=== PATIENT | male | born 1955 | race Caucasian/White ===

== ENCOUNTER 2019-09-22 09:17 | Inpatient (IN) | payer BC ==
[2019-09-22] MEDS ORDERED: SODIUM CHLORIDE 2,313 ML IV ONE (09:37)
[2019-09-22 10:12] LABS: CALCIUM OXALATE CRYSTALS FEW /hpf (NONE SEEN); EPITHELIAL CELLS RARE /hpf
[2019-09-22] MEDS ORDERED: ACETAMINOPHEN 1000 MG/100 ML VIAL (NON FORMULARY) IVPB ONE (10:13)
[2019-09-22] MEDS ORDERED: PIPERACILLIN/TAZOB 3.375 GM 3.375 GM in DEXTROSE 5%-WATER - 50 ML IVPB ONE ×2 (10:14→18:45)
[2019-09-22] MEDS ORDERED: PIPERACILLIN/TAZOBACTAM 3.375 GM VIAL IVPB ONE ×2 (10:41→17:57)
[2019-09-22] MEDS ORDERED: ACETAMINOPHEN INJECTION 100 ML IVPB ONE (10:41)
[2019-09-22 10:44] LABS: HEMATOCRIT 32.8 % (35.4-49); HEMOGLOBIN 11.2 GM/dl (11.7-16.9); MCH 30.7 pg (25.7-33.7); MCHC 34.1 g/dl (32.0-35.9); MEAN PLT VOLUME 8.9 fl (7.5-11.1); PLATELET COUNT 422 K/MM3 (134-434); RBC 3.64 M/mm3 (4.00-5.60); RDW 12.7 % (11.9-15.9); WHITE BLOOD COUNT 29.6 K/mm3 (4.0-10.8)
[2019-09-22 10:59] LABS: ACTIVATED PTT 24.6 SECONDS (25.2-36.5); ALBUMIN 2.9 g/dl (3.4-5.0); BILIRUBIN,TOTAL 0.4 mg/dl (0.2-1); CALCIUM 8.6 mg/dl (8.5-10); CREATININE 4.2 mg/dl (0.55-1.3); POTASSIUM 3.8 mmol/L (3.5-5.1); TOT PROT 6.4 g/dl (6.4-8.2)
[2019-09-22 11:04] LABS: INR 1.36 (0.82-1.09); PROTHROMBIN TIME (PATIENT) 15.1 SEC (10.2-13.0)
[2019-09-22] MEDS ORDERED: SODIUM CHLORIDE 0.9% 1000 ML INFUS.BAG IV ONE (11:10)
--- NOTE | 2019-09-22 11:14 | PDOC ---
History of Present Illness - General Chief Complaint: Diarrhea Stated Complaint: DIARRHEA Time Seen by Provider: 09/22/19 09:27 - History of Present Illness Initial Comments: 09/22/19 11:11 64 years old with past medical history significant for needed for hypertension diabetes high cholesterol presents to the emergency department with 1 week history of diarrhea 3-4 episodes a day nonbloody nonbilious and 3-day history of lower abdominal discomfort and subjective fevers. Patient feels very weak symptoms are moderate persistent constant no exacerbating or alleviating factors. Past History - Past Medical History Allergies/Adverse Reactions: Allergies Allergy/AdvReac Type Severity Reaction Status Date / Time No Known Allergies Allergy Verified 09/22/19 09:20 Home Medications: Ambulatory Orders Losartan Potassium 100 mg PO DAILY 09/23/19 COPD: No Diabetes: Yes HTN: Yes Hypercholesterolemia: Yes Kidney Stones: Yes - Immunization History Immunization Up to Date: Yes - Psycho Social/Smoking Cessation Hx Smoking History: Current every day smoker Have you smoked in the past 12 months: Yes Number of Cigarettes Smoked Daily: 10 Information on smoking cessation initiated: Yes 'Breaking Loose' booklet given: 03/29/14 Hx Alcohol Use: Yes (1-3 TIMES PER WK) Drug/Substance Use Hx: No Substance Use Type: None Review of Systems - Review of Systems Comments:: 09/22/19 11:13 ROS: A complete review of 10 out of 10 review of systems is taken and is negative apart from what is previously mentioned below and in the HPI. *Physical Exam - Vital Signs Last Vital Signs Temp Pulse Resp BP Pulse Ox 100.9 F H 122 H 16 106/70 98 09/22/19 10:10 09/22/19 09:18 09/22/19 09:18 09/22/19 09:18 09/22/19 09:18 - Physical Exam 09/22/19 11:13 Vitals: Triage Vital signs reviewed General Appearance: No acute distress, well nourished well developed, Neck: Supple; no Nucal rigidity Chest Wall: Nontender Cardiac: Regular rate and rhythym, no murmurs, no rubs, no gallops, Lungs: Clear to auscultation bilateral, good air movement bilaterally, Abdomen: Soft, non distended, normal bowel sounds, Right lower quadrant tenderness to palpation, mild rebound no guarding Extremities: Full range of motion to all extremities, no cyanosis, clubbing, or edema Skin: Warm and dry, no rashes or lesions, no rash, no petechiae Psych: Normal mood, normal affect ED Treatment Course - LABORATORY CBC & Chemistry Diagram: 09/23/19 06:40 09/23/19 06:40 - ADDITIONAL ORDERS Additional order review: Laboratory Results 09/22/19 09/22/19 09/22/19 10:15 10:15 10:15 PT with INR 15.1 H INR 1.36 H PTT (Actin FS) 24.6 L Sodium 128 L Potassium 3.8 Chloride 100 Carbon Dioxide 15 L Anion Gap 13 BUN 75.0 H Creatinine 4.2 H Est GFR (CKD-EPI)AfAm 16.42 Est GFR (CKD-EPI)NonAf 14.17 Random Glucose 136 H Calcium 8.6 Total Bilirubin 0.4 AST 14 L ALT 12 L Alkaline Phosphatase 60 Troponin I 0.03 Total Protein 6.4 Albumin 2.9 L Urine Color Urine Appearance Urine pH Urine Protein Urine Glucose (UA) Urine Ketones Urine Blood Urine Nitrite Urine Bilirubin Urine Urobilinogen Ur Leukocyte Esterase Urine RBC Urine WBC Ur Transition Epith Cell Calcium Oxalate Crystal 09/22/19 09:50 PT with INR INR PTT (Actin FS) Sodium Potassium Chloride Carbon Dioxide Anion Gap BUN Creatinine Est GFR (CKD-EPI)AfAm Est GFR (CKD-EPI)NonAf Random Glucose Calcium Total Bilirubin AST ALT Alkaline Phosphatase Troponin I Total Protein Albumin Urine Color Yellow Urine Appearance Clear Urine pH 5.0 Urine Protein 2+ H Urine Glucose (UA) Negative Urine Ketones Negative Urine Blood Trace-intact Urine Nitrite Negative Urine Bilirubin Negative Urine Urobilinogen 0.2 Ur Leukocyte Esterase Negative Urine RBC 0-2 Urine WBC Rare Ur Transition Epith Cell Rare Calcium Oxalate Crystal Few 09/22/19 10:15 RBC 3.64 L MCV 90.0 MCHC 34.1 RDW 12.7 MPV 8.9 Neutrophils % No Result Required. Lymphocytes % No Result Required. - RADIOLOGY Radiology Studies Ordered: Category Date Time Status ABDOMEN & PELVIS CT W/O CONTR [CT] Stat CT Scan 09/22/19 11:09 Ordered CHEST X-RAY PORTABLE* [RAD] Stat Radiology 09/22/19 09:37 Completed - Medications Given in the ED: ED Medications Discontinued Medications Generic Name Dose Route Start Last Admin Trade Name Freq PRN Reason Stop Dose Admin Acetaminophen 1,000 mg 09/22/19 10:13 09/22/19 10:45 Ofirmev Injection - IVPB 09/22/19 10:14 1,000 mg ONCE ONE Administration Piperacillin Sod/Tazobactam 50 mls @ 100 mls/hr 09/22/19 10:14 09/22/19 10:50 Sod 3.375 gm/ Dextrose IVPB 09/22/19 10:43 100 mls/hr ONCE ONE Administration Protocol Medical Decision Making - Critical Care Time Total Critical Care Time (minutes): 65 Critical Care Statement: The care of this patient involved high complexity decision making to prevent further life threatening deterioration of the patient 's condition and/or to evaluate & treat vital organ system(s) failure or risk of failure. - Medical Decision Making 09/22/19 11:13 64 years old hypertension diabetes high cholesterol with diarrheal illness now complicated by 3-day history of lower abdominal pain. Patient febrile tachycardic sepsis protocol initiated 30 cc/kg IV fluid bolus ordered broad-spectrum antibiotics ordered He has lactic acid returned normal patient borderline hypotensive never below 85 systolic after aggressive IV fluid resuscitation patient's blood pressure has maintained above 90 and his map has been maintained above 65 His laboratory analysis is notable for acute kidney injury his white blood cell count has returned at 29 secondary to the acute kidney injury IV contrast not used for CT abdomen pelvis Reevaluation CT abdomen pelvis demonstrates appendicitis Case discussed with surgery Dr. Foster Repeat labs demonstrate hypocalcemia hypomagnesemia and mild hypokalemia Electrolytes repleted via IV repletion Patient scheduled to be transferred to [facility] secondary to borderline hypotension electrolyte abnormalities acute kidney injury Discussion with surgeon at this time most likely diagnosis is early perforated appendicitis management per surgery Antibiotics have been ordered repeat dose ordered infectious disease has been consulted We will transfer to medicine service with close surgical consultation for further management. 09/23/19 16:26 Discharge - Discharge Information Problems reviewed: Yes Clinical Impression/Diagnosis: Appendicitis Qualifiers: Appendicitis type: unspecified Qualified Code(s): K37 - Unspecified appendicitis Condition: Good - Admission Yes - Follow up/Referral - Patient Discharge Instructions - Post Discharge Activity
[2019-09-22] MEDS ORDERED: VANCOMYCIN 1,000 MG in DEXTROSE 5%-WATER - 250 ML IVPB ONE (11:17)
[2019-09-22] MEDS ORDERED: VANCOMYCIN 1,000 MG VIAL (RESTRICTED TO ID ONLY) ONE (11:27)
[2019-09-22 11:30] LABS: PLATELET ESTIMATE ADEQUATE
[2019-09-22 11:53] LABS: VENOUS PC02 26.9 mmHg (38-52); VENOUS PH 7.37 (7.31-7.41); VENOUS PO2 52.5 mmHg (28-48)
[2019-09-22 15:20] LABS: HEMATOCRIT 26.3 % (35.4-49); MCH 31.6 pg (25.7-33.7); MCHC 34.4 g/dl (32.0-35.9); MEAN CELL VOLUME 92.1 fl (80-96); MEAN PLT VOLUME 8.4 fl (7.5-11.1); PLATELET COUNT 311 K/MM3 (134-434); RBC 2.86 M/mm3 (4.00-5.60); RDW 12.6 % (11.9-15.9); WHITE BLOOD COUNT 25.5 K/mm3 (4.0-10.8)
[2019-09-22 15:31] LABS: ALBUMIN 2.1 g/dl (3.4-5.0); BILIRUBIN,TOTAL 0.6 mg/dl (0.2-1); CREATININE 3.5 mg/dl (0.55-1.3); POTASSIUM 3.4 mmol/L (3.5-5.1); TOT PROT 4.7 g/dl (6.4-8.2)
[2019-09-22 15:35] LABS: CALCIUM 6.5 mg/dl (8.5-10)
[2019-09-22 15:37] LABS: MAGNESIUM 1.6 mg/dL (1.8-2.4); PHOSPHOROUS 3.1 mg/dl (2.5-4.9)
[2019-09-22 15:48] LABS: PLATELET ESTIMATE ADEQUATE
[2019-09-22] MEDS ORDERED: MAGNESIUM SULF 50% (8.12 MEQ/2 ML-1 GM VIAL) IVPB ONE (15:54)
[2019-09-22] MEDS ORDERED: CALCIUM GLUCONATE 10% - 1,000 MG/10 ML VIAL IVPB ONE (15:55)
[2019-09-22] MEDS ORDERED: SODIUM CHLORIDE 0.9%/KCL 20 MEQ/1,000 ML INFUS.BAG IV SCH (16:00)
[2019-09-22] MEDS ORDERED: MAGNESIUM SULF 50% (8.12 MEQ/2 ML-1 GM VIAL) ONE (16:03)
[2019-09-22] MEDS ORDERED: CALCIUM GLUCONATE 10% - 1,000 MG/10 ML VIAL ONE (16:03)
--- NOTE | 2019-09-22 16:08 | CONSULT ---
Consult Consult Specialty:: General Surgery Referred by:: Neha Coleman Reason for Consultation:: appendicitis - History of Present Illness Chief Complaint: diarrhea, RLQ pain History of Present Illness: 64yo M with HTN, HLD, DM2, h/o nephrolithiasis s/p lithotripsy in past (in OR), was in usual state of health until early last week, when he started having frequent, liquid/loose diarrhea. He had seen PMD about 3 weeks ago and been told all recent labs were good, and he was in good shape. He thought he had a bug, but the diarrhea persisted, and he hasn't been eating so much in the last week, though able to drink plenty of water. He continued taking his usual meds. Denies vomiting, but had occasional nausea, and tried self-inducing emesis, but never did vomit. Denies bloody or black diarrhea. No subjective fever or chills , no H/A, though he has been lightheaded at times this last week. He also reports losing about 9 pounds in the last 2-3 weeks. 2 days ago, he began having RLQ pain and realized something else must be going on. He last took Metformin yesterday am, but did take his amlodipine, losartan and simvastatin this morning. In ER at [facility], he had low-grade temp 100.9 (rectal), and was hypotensive and tachycardic; wbc 29, hyponatremia 128, acidosis with CO2 15, MELANIE on CKD ( baseline Cr 1.3-1.6) with BUN/Cr 75/4.2, and lactate normal at 1.1. His baseline Hb is 13 by [employer]; 11.2 in ER, hydrated down to 9. Vitals and labs have improved with at least 5-6L crystalloid, though not fully normalized. Glucose was 136, repeated at 119. CT was done, showing likely appendicitis with significant inflammation in RLQ but no abscess, and diverticulosis with mild sigmoid thickening but no clear inflammatory changes around sanon. He has been given IV fluids, started on Zosyn after blood cultures, and had stool studies sent. His last liquid BM was a few hours ago in ED. BPs now 90s-110 systolic, HR in 80s. Surgery was asked to assess. He is seen and examined in ER, relatively comfortable, alert and responsive. He indicates some pain in RLQ. Transfer to [facility] is pending to telemetry bed. - History Source History Provided By: Patient Limitations to Obtaining History: No Limitations - Past Medical History Cardio/Vascular: Yes: HTN, Hyperlipdemia Renal/: Yes: Renal Calculi Endocrine: Yes: Diabetes Mellitus Additional Medical History: broken bones as child - Past Surgical History Past Surgical History: Yes: Colonoscopy (12 yrs ago) Additional Surgical History: lithotripsy (OR, through right flank per pt) - Alcohol/Substance Use Hx Alcohol Use: Yes (social) History of Substance Use: reports: None - Smoking History Smoking history: Current every day smoker Have you smoked in the past 12 months: Yes Aproximately how many cigarettes per day: 7 - Social History Usual Living Arrangement: Alone ADL: Independent Occupation: [employer] Home Medications - Allergies Allergies/Adverse Reactions: Allergies Allergy/AdvReac Type Severity Reaction Status Date / Time No Known Allergies Allergy Verified 09/22/19 09:20 - Home Medications Home Medications: Ambulatory Orders [place]-3 Fatty Acids [[place]-3] 1,000 mg PO BID capsule 03/24/13 Cholecalciferol (Vitamin D3) [Vitamin D3] 2,000 unit PO AM capsule 08/17/16 Family Medical History Family Hx Renal Disease: Father (dialysis, in late 80s) Other Family History: mother at 96 of natural causes; lost 2 brothers and a sister to Alberto's disease (he has been tested negative) Review of Systems - Review of Systems Constitutional: reports: Loss of Appetite, Unintentional Wgt. Loss (9 pounds last few weeks), Weakness (/lightheadedness in last few days). denies: Chills, Fever Eyes: denies: Blurred Vision, Recent Change in Vision HENT: denies: Difficult Swallowing, Throat Pain Neck: denies: Pain on Movement, Stiffness Cardiovascular: denies: Chest Pain, Palpitations Respiratory: denies: Cough, SOB Gastrointestinal: reports: Abdominal Pain (with hpi), Diarrhea (with hpi), Nausea (mild - not currently). denies: Constipation, Melena, Rectal Bleeding, Vomiting Genitourinary: denies: Burning, Dysuria Musculoskeletal: denies: Back Pain, Joint Pain, Muscle Pain Integumentary: denies: Change in Color, Rash Neurological: denies: Dizziness, Headache, Unsteady Gait Endocrine: reports: Unexplained Weight Loss (9 lbs recently) Psychiatric: denies: Anxiety, Depression Physical Exam Vital Signs: Vital Signs Temperature 98.5 F 09/22/19 12:45 Pulse Rate 84 09/22/19 15:40 Respiratory Rate 18 09/22/19 15:40 Blood Pressure 110/68 09/22/19 15:40 O2 Sat by Pulse Oximetry (%) 99 09/22/19 15:40 Vital Signs Period Temp Pulse Resp BP Sys/[place] Pulse Ox Last 24 Hr 98.5 F-100.9 F 79-122 16-20 86-110/53-70 94-99 Constitutional: Yes: Well Nourished, No Distress, Calm Eyes: Yes: Conjunctiva Clear, EOM Intact HENT: Yes: Atraumatic, Normocephalic Neck: Yes: Supple, Trachea Midline Cardiovascular: Yes: Tachycardia (mild). No: Pulse Irregular Respiratory: Yes: Regular, CTA Bilaterally, On Nasal O2 Gastrointestinal: Yes: Normal Bowel Sounds, Soft, Hernia (small umbilical, difficult to palpate at base secondary to habitus), Tenderness (RLQ focally). No: Tenderness, Epigastrium, Tenderness, Rebound ...Rectal Exam: Yes: Deferred Renal/: No: CVA Tenderness - Left, CVA Tenderness - Right Musculoskeletal: No: Joint Stiffness, Joint Swelling Extremities: No: Cool, Cyanosis Edema: No Peripheral Pulses WNL: Yes Integumentary: No: Jaundice, Rash Neurological: Yes: Alert, Oriented Psychiatric: Yes: Alert, Oriented Labs: CBC, BMP 09/22/19 15:00 09/22/19 15:00 Laboratory Results - last 24 hr 09/22/19 09/22/19 09/22/19 09:48 09:50 10:15 WBC RBC Hgb Hct MCV MCH MCHC RDW Plt Count MPV Absolute Neuts (auto) Neutrophils % Neutrophils % (Manual) Lymphocytes % Lymphocytes % (Manual) Monocytes % (Manual) Eosinophils % (Manual) Hypochromia Platelet Estimate PT with INR 15.1 H INR 1.36 H PTT (Actin FS) 24.6 L VBG pH 7.37 POC VBG pCO2 26.9 L POC VBG pO2 52.5 H VBG HCO3 15.1 L VBG O2 Sat (Pj) 85.2 H VBG Base Excess -8.6 L Sodium Potassium Chloride Carbon Dioxide Anion Gap BUN Creatinine Est GFR (CKD-EPI)AfAm Est GFR (CKD-EPI)NonAf Random Glucose Lactic Acid Calcium Phosphorus Magnesium Total Bilirubin AST ALT Alkaline Phosphatase Troponin I Total Protein Albumin Urine Color Yellow Urine Appearance Clear Urine pH 5.0 Urine Protein 2+ H Urine Glucose (UA) Negative Urine Ketones Negative Urine Blood Trace-intact Urine Nitrite Negative Urine Bilirubin Negative Urine Urobilinogen 0.2 Ur Leukocyte Esterase Negative Urine RBC 0-2 Urine WBC Rare Ur Transition Epith Cell Rare Calcium Oxalate Crystal Few Influenza A (Rapid) Influenza B (Rapid) 09/22/19 09/22/19 09/22/19 10:15 10:15 10:15 WBC 29.6 H RBC 3.64 L Hgb 11.2 L Hct 32.8 L D MCV 90.0 MCH 30.7 MCHC 34.1 RDW 12.7 Plt Count 422 MPV 8.9 Absolute Neuts (auto) 25.6 Neutrophils % No Result Required. Neutrophils % (Manual) 87.0 H Lymphocytes % No Result Required. Lymphocytes % (Manual) 8.0 Monocytes % (Manual) 5 Eosinophils % (Manual) Hypochromia 1+ Platelet Estimate Adequate PT with INR INR PTT (Actin FS) VBG pH POC VBG pCO2 POC VBG pO2 VBG HCO3 VBG O2 Sat (Pj) VBG Base Excess Sodium 128 L Potassium 3.8 Chloride 100 Carbon Dioxide 15 L Anion Gap 13 BUN 75.0 H Creatinine 4.2 H Est GFR (CKD-EPI)AfAm 16.42 Est GFR (CKD-EPI)NonAf 14.17 Random Glucose 136 H Lactic Acid 1.1 Calcium 8.6 Phosphorus Magnesium Total Bilirubin 0.4 AST 14 L ALT 12 L Alkaline Phosphatase 60 Troponin I Total Protein 6.4 Albumin 2.9 L Urine Color Urine Appearance Urine pH Urine Protein Urine Glucose (UA) Urine Ketones Urine Blood Urine Nitrite Urine Bilirubin Urine Urobilinogen Ur Leukocyte Esterase Urine RBC Urine WBC Ur Transition Epith Cell Calcium Oxalate Crystal Influenza A (Rapid) Influenza B (Rapid) 09/22/19 09/22/19 09/22/19 10:15 11:00 13:25 WBC RBC Hgb Hct MCV MCH MCHC RDW Plt Count MPV Absolute Neuts (auto) Neutrophils % Neutrophils % (Manual) Lymphocytes % Lymphocytes % (Manual) Monocytes % (Manual) Eosinophils % (Manual) Hypochromia Platelet Estimate PT with INR INR PTT (Actin FS) VBG pH POC VBG pCO2 POC VBG pO2 VBG HCO3 VBG O2 Sat (Pj) VBG Base Excess Sodium Potassium Chloride Carbon Dioxide Anion Gap BUN Creatinine Est GFR (CKD-EPI)AfAm Est GFR (CKD-EPI)NonAf Random Glucose Lactic Acid 0.8 Calcium Phosphorus Magnesium Total Bilirubin AST ALT Alkaline Phosphatase Troponin I 0.03 Total Protein Albumin Urine Color Urine Appearance Urine pH Urine Protein Urine Glucose (UA) Urine Ketones Urine Blood Urine Nitrite Urine Bilirubin Urine Urobilinogen Ur Leukocyte Esterase Urine RBC Urine WBC Ur Transition Epith Cell Calcium Oxalate Crystal Influenza A (Rapid) Negative Influenza B (Rapid) Negative 09/22/19 09/22/19 09/22/19 15:00 15:00 15:00 WBC 25.5 H RBC 2.86 L Hgb 9.0 L Hct 26.3 L D MCV 92.1 MCH 31.6 MCHC 34.4 RDW 12.6 Plt Count 311 D MPV 8.4 Absolute Neuts (auto) 22.3 Neutrophils % No Result Required. Neutrophils % (Manual) 79.0 Lymphocytes % No Result Required. Lymphocytes % (Manual) 14.0 D Monocytes % (Manual) 6 Eosinophils % (Manual) 1.0 Hypochromia Platelet Estimate Adequate PT with INR INR PTT (Actin FS) VBG pH POC VBG pCO2 POC VBG pO2 VBG HCO3 VBG O2 Sat (Pj) VBG Base Excess Sodium 132 L Potassium 3.4 L Chloride 111 H Carbon Dioxide 12 L Anion Gap 9 BUN 63.0 H Creatinine 3.5 H Est GFR (CKD-EPI)AfAm 20.47 Est GFR (CKD-EPI)NonAf 17.66 Random Glucose 119 H Lactic Acid Calcium 6.5 L* Phosphorus 3.1 Magnesium 1.6 L Total Bilirubin 0.6 AST 11 L ALT 9 L Alkaline Phosphatase 38 L D Troponin I Total Protein 4.7 L Albumin 2.1 L Urine Color Urine Appearance Urine pH Urine Protein Urine Glucose (UA) Urine Ketones Urine Blood Urine Nitrite Urine Bilirubin Urine Urobilinogen Ur Leukocyte Esterase Urine RBC Urine WBC Ur Transition Epith Cell Calcium Oxalate Crystal Influenza A (Rapid) Influenza B (Rapid) INR, PTT INR 1.36 (0.82-1.09) H 09/22/19 10:15 PTT normal Imaging - Results Cat Scan: Report Reviewed, Image Reviewed (RLQ inflammation with dilated/ enlarged appendix with small calcification/appendicolith with adjacent bubble of air; no gross free fluid or discrete abscess; no obstruction, no gross free air, +diverticulosis with some liquid stool content distally, mild sigmoid thickening without sussy surrounding inflammatory changes) Problem List - Problems (1) Acute appendicitis with perforation and localized peritonitis, without gangrene Assessment/Plan: most likely early perforated appendicitis with appendicolith no abscess identified agree with transfer to [facility] and admit to medicine NPO/IVF with generous rehydration - labs improving but still with MELANIE on CKD IV antibiotics - continue Zosyn, consult ID - adjust dosing as renal function improves pain meds prn - would use IV tylenol first line, minimize/avoid narcotics f/u blood cultures, stool studies trend labs replete lytes prn IV fluids changed to include K+ would repeat labs tonight after repletion and again in am discussed with patient plan to treat conservatively with IV antibiotics and monitor closely through morning if he remains clinically stable and continues to improve by labs and exam, would plan to continue with same and ultimately complete abx course orally on d/ c home, with colonoscopy in 6-8 weeks after recovery, followed by interval appendectomy if he deteriorates or fails to improve within 24-48 hrs, would consider rescanning and possible OR will follow with you patient understands that urgent/emergent operation in the setting of perforation and significant inflammation would carry increased risks of injury to adjacent structures, conversion to open and/or potential for staple line leak /breakdown also discussed need for smoking (nicotine) cessation at least 4 weeks prior to elective surgery Code(s): K35.32 - ACUTE APPENDICITIS WITH PERF AND LOC PERITONITIS, W/O ABSCS Qualifiers: Appendicitis abscess presence: without abscess Qualified Code(s): K35.32 - Acute appendicitis with perforation and localized peritonitis, without abscess (2) RLQ abdominal pain Code(s): R10.31 - RIGHT LOWER QUADRANT PAIN (3) Diarrhea Assessment/Plan: stool studies sent by ER Code(s): R19.7 - DIARRHEA, UNSPECIFIED Qualifiers: Diarrhea type: unspecified type Qualified Code(s): R19.7 - Diarrhea, unspecified (4) Dehydration Assessment/Plan: improving with hydration - continue IV resuscitation Code(s): E86.0 - DEHYDRATION (5) Hypertension Assessment/Plan: hold home meds for now would use IV meds prn when pressure becomes elevated again, while NPO Code(s): I10 - ESSENTIAL (PRIMARY) HYPERTENSION Qualifiers: Hypertension type: essential hypertension Qualified Code(s): I10 - Essential (primary) hypertension (6) Hyperlipidemia Assessment/Plan: hold home statin for now Code(s): E78.5 - HYPERLIPIDEMIA, UNSPECIFIED Qualifiers: Hyperlipidemia type: unspecified Qualified Code(s): E78.5 - Hyperlipidemia , unspecified (7) Diabetes mellitus with chronic kidney disease, without long-term current use of insulin Assessment/Plan: FS with SSI while NPO hold metformin while NPO and at least [address] w/contrast Code(s): E11.22 - TYPE 2 DIABETES MELLITUS W DIABETIC CHRONIC KIDNEY DISEASE Qualifiers: Diabetes mellitus type: type 2 Chronic kidney disease stage: stage 2 (mild ) Qualified Code(s): E11.22 - Type 2 diabetes mellitus with diabetic chronic kidney disease; N18.2 - Chronic kidney disease, stage 2 (mild) (8) Acute kidney injury superimposed on chronic kidney disease Assessment/Plan: improving with hydration monitor closely adjust meds if needed Code(s): N17.9 - ACUTE KIDNEY FAILURE, UNSPECIFIED; N18.9 - CHRONIC KIDNEY DISEASE, UNSPECIFIED
[2019-09-22] MEDS ORDERED: POTASSIUM CHLORIDE 20 MEQ PREMIX IVPB 100 ML IVPB ONE (17:48)
[2019-09-22] MEDS: KCL 10 MEQ IVPB 10 MEQ/100 ML INFUS.BAG IVPB SCH ×2 (17:55→19:14)
[2019-09-22] MEDS ORDERED: KCL 10 MEQ IVPB 20 MEQ/200 ML INFUS.BAG IVPB ONE (17:57)
--- NOTE | 2019-09-22 22:46 | HP ---
Admitting History and Physical - Primary Care Physician PCP: Dinesh ( private practice) - Admission Chief Complaint: Abdominal Pain History of Present Illness: This is a 64 y/o man with a PMHx of HTN, HLD, Renal Calculi s/p Lithotripsy. Who presented to [place] ED for loose NBNB diarrhea 3-4 episodes x 1 week, and lower abdominal pain x 3 days. Patient reports subjective fevers, generalized weakness. Patient denies cough, SOB, dizzness, NUNO, CP, palpitations , hematuria, dysuria. History Source: Patient Limitations to Obtaining History: No Limitations - Past Medical History Cardiovascular: Yes: HTN, Hyperlipdemia Renal/: Yes: Renal Calculi Endocrine: Yes: Diabetes Mellitus - Past Surgical History Past Surgical History: Yes: Colonoscopy (12 yrs ago) Additional Past Surgical History: Lithotripsy - Smoking History Smoking history: Current every day smoker Have you smoked in the past 12 months: Yes Aproximately how many cigarettes per day: 7 - Alcohol/Substance Use Hx Alcohol Use: Yes (social) History of Substance Use: reports: None - Social History Usual Living Arrangement: Yes: Alone ADL: Independent Occupation: Mobile Location, [place] History of Recent Travel: No Home Medications - Allergies Allergies/Adverse Reactions: Allergies Allergy/AdvReac Type Severity Reaction Status Date / Time No Known Allergies Allergy Verified 09/22/19 09:20 - Home Medications Home Medications: Ambulatory Orders Losartan Potassium 100 mg PO DAILY 09/23/19 Family Medical History Family Hx Renal Disease: Father (ESRD- age 80's) Other Family History: Alberto's Disease- Brothers x2 , Sister x1 . Mother- age 96- natural causes Review of Systems - Review of Systems Constitutional: reports: Loss of Appetite Eyes: reports: No Symptoms HENT: reports: No Symptoms Neck: reports: No Symptoms Cardiovascular: reports: No Symptoms Respiratory: reports: No Symptoms Gastrointestinal: reports: Abdominal Pain, Diarrhea Genitourinary: reports: No Symptoms Breasts: reports: No Symptoms Reported Musculoskeletal: reports: No Symptoms Integumentary: reports: No Symptoms Neurological: reports: No Symptoms Endocrine: reports: No Symptoms Hematology/Lymphatic: reports: No Symptoms Psychiatric: reports: No Symptoms Pain Intensity: 3 Physical Examination Vital Signs: Vital Signs Temperature 98.8 F 09/22/19 21:05 Pulse Rate 86 09/22/19 21:05 Respiratory Rate 20 09/22/19 21:05 Blood Pressure 104/53 L 09/22/19 21:05 O2 Sat by Pulse Oximetry (%) 95 09/22/19 20:00 Constitutional: Yes: Well Nourished, Calm, Mild Distress Eyes: Yes: WNL, Conjunctiva Clear, EOM Intact, PERRL HENT: Yes: WNL, Atraumatic, Normocephalic Neck: Yes: WNL, Supple, Trachea Midline Cardiovascular: Yes: Tachycardia, S1, S2 Respiratory: Yes: WNL, Regular, CTA Bilaterally Gastrointestinal: Yes: Soft, Hyperactive Bowel Sounds, Tenderness (RLQ), Tenderness, Rebound ...Rectal Exam: Yes: WNL Renal/: Yes: WNL Breast(s): Yes: WNL Musculoskeletal: Yes: WNL Extremities: Yes: WNL Edema: No Peripheral Pulses WNL: Yes Integumentary: Yes: WNL Neurological: Yes: WNL, Alert, Oriented, Cran Nerves II-XII Intact ...Motor Strength: WNL Psychiatric: Yes: WNL, Alert, Oriented Labs: CBC, BMP 09/22/19 15:00 09/22/19 15:00 Imaging - Results Chest X-ray: Image Reviewed Cat Scan: Report Reviewed, Image Reviewed EKG: Image Reviewed Problem List - Problems (1) Appendicitis Assessment/Plan: +Leukocytosis with L- shift T Max 100.7 LA-nl Patient was hypotensie 80/40, resuscitated with NS Will require cardiac monitoring Maintain MAP> 65 CTAP- reviewed Surgery following Keep NPO Monitor CBC, BMP BGMs Continue IVF Zosyn given in ED, will continue Monitor vitals Code(s): K37 - UNSPECIFIED APPENDICITIS Qualifiers: Appendicitis type: unspecified Qualified Code(s): K37 - Unspecified appendicitis (2) RLQ abdominal pain Assessment/Plan: See above Code(s): R10.31 - RIGHT LOWER QUADRANT PAIN (3) MELANIE (acute kidney injury) Assessment/Plan: Cr 4.2 Likely due to Dehydration NS bolus given in ED Continue IVF Monitor BMP, Mg, closely Consider Nephrology consult if condition worsens Avoid Nephrotoxic drugs Code(s): N17.9 - ACUTE KIDNEY FAILURE, UNSPECIFIED (4) Diarrhea Assessment/Plan: Likely due to AP Continue IVF Monitor lytes Monitor vitals Code(s): R19.7 - DIARRHEA, UNSPECIFIED Qualifiers: Diarrhea type: unspecified type Qualified Code(s): R19.7 - Diarrhea, unspecified (5) Hyperlipidemia Assessment/Plan: Hold for now secondary to Acute AP Code(s): E78.5 - HYPERLIPIDEMIA, UNSPECIFIED Qualifiers: Hyperlipidemia type: unspecified Qualified Code(s): E78.5 - Hyperlipidemia , unspecified (6) Diabetes mellitus with chronic kidney disease, without long-term current use of insulin Assessment/Plan: BGMs ISS when diet resumed Monitor BMP Code(s): E11.22 - TYPE 2 DIABETES MELLITUS W DIABETIC CHRONIC KIDNEY DISEASE Qualifiers: Diabetes mellitus type: type 2 Chronic kidney disease stage: stage 2 (mild ) Qualified Code(s): E11.22 - Type 2 diabetes mellitus with diabetic chronic kidney disease; N18.2 - Chronic kidney disease, stage 2 (mild) (7) Hypertension Assessment/Plan: Hold for now secondary to Acute AP, Hypotension Continue IVF Continue cardiac monitoring Maintain MAP> 65 Code(s): I10 - ESSENTIAL (PRIMARY) HYPERTENSION Qualifiers: Hypertension type: essential hypertension Qualified Code(s): I10 - Essential (primary) hypertension Assessment/Plan This is a 64 y/o man with a past medical history of Hypertension, Hyperlipidemia. Admitted for Acute Appendicitis for further evaluation of their emergent condition. Plan: See Problem List FEN [id number]@125ml/hr Replete lytes prn NPO DVT ppx OOB SCDs Hold AC- possible OR in am Code Status: Full Code Dispo: Requires Inpatient Care Visit type - Emergency Visit Emergency Visit: Yes ED Registration Date: 09/22/19 Care time: The patient presented to the Emergency Department on the above date and was hospitalized for further evaluation of their emergent condition. - New Patient This patient is new to me today: Yes Date on this admission: 09/22/19 - Critical Care Critical Care patient: No
[2019-09-23 01:15] LABS: BASO % 0.4 % (0-2.0); EOS % 1.1 % (0-4.5); HEMATOCRIT 27.6 % (35.4-49); HEMOGLOBIN 9.2 GM/dL (11.7-16.9); LYMPH % 4.6 % (8-40); MCH 30.7 pg (25.7-33.7); MCHC 33.4 g/dl (32.0-35.9); MEAN CELL VOLUME 91.8 fl (80-96); MEAN PLT VOLUME 8.5 fl (7.5-11.1); MONO % 5.2 % (3.8-10.2); NEUT % 88.7 % (42.8-82.8); PLATELET COUNT 337 K/MM3 (134-434); RBC 3.01 M/mm3 (4.00-5.60); RDW 13.6 % (11.9-15.9); WHITE BLOOD COUNT 27.1 K/mm3 (4.0-10.0)
[2019-09-23 01:27] LABS: BLOOD UREA NITROGEN 55.7 mg/dL (7-18); CALCIUM 7.3 mg/dL (8.5-10.1); CREATININE 3.2 mg/dL (0.55-1.3); MAGNESIUM 2.1 mg/dL (1.8-2.4)
[2019-09-23] MEDS ORDERED: SODIUM CHLORIDE 0.45%/POT 20 MEQ/1,000 ML INFUS.BAG IV SCH (02:00)
[2019-09-23 02:14] LABS: ALBUMIN 2.2 g/dl (3.4-5.0)
[2019-09-23] MEDS ORDERED: PIPERACILLIN/TAZOBACTAM 2.25 GM VIAL IVPB ONE ×4 (02:21→21:48)
[2019-09-23] MEDS ORDERED: DEXTROSE 5%-WATER - 50 ML IVPB ONE ×4 (02:22→21:48)
[2019-09-23] MEDS ORDERED: PIPERACILLIN/TAZOB 3.375 GM 3.375 GM in DEXTROSE 5%-WATER - 50 ML IVPB ONE (02:30)
[2019-09-23] MEDS ORDERED: PIPERACILLIN/TAZOB 2.25 GM 2.25 GM in DEXTROSE 5%-WATER - 50 ML IVPB ONE (02:30)
[2019-09-23 06:00] LABS: ANISOCYTOSIS 2+; MACROCYTOSIS 0; PLATELET ESTIMATE NORMAL
[2019-09-23] MEDS ORDERED: INSULIN SLIDING SCALE (NOVOLOG) 1 VIAL SQ SCH ×2 (07:00→07:01)
[2019-09-23 07:08] LABS: BASO % 0.5 % (0-2.0); EOS % 1.1 % (0-4.5); HEMATOCRIT 27.2 % (35.4-49); HEMOGLOBIN 9.2 GM/dL (11.7-16.9); MCH 30.9 pg (25.7-33.7); MEAN CELL VOLUME 90.7 fl (80-96); MONO % 5.1 % (3.8-10.2); NEUT % 88.3 % (42.8-82.8); PLATELET COUNT 332 K/MM3 (134-434); RDW 13.6 % (11.9-15.9); WHITE BLOOD COUNT 25.3 K/mm3 (4.0-10.0)
[2019-09-23 07:50] LABS: ALBUMIN 2.2 g/dl (3.4-5.0); BLOOD UREA NITROGEN 52.3 mg/dL (7-18); CALCIUM 7.4 mg/dL (8.5-10.1); CREATININE 2.9 mg/dL (0.55-1.3); PHOSPHOROUS 3.2 mg/dL (2.5-4.9)
[2019-09-23] MEDS ORDERED: PIPERACILLIN/TAZOB 2.25 GM 2.25 GM in DEXTROSE 5%-WATER - 50 ML IVPB SCH (09:00)
[2019-09-23 09:28] LABS: ARTERIAL BLD GAS O2 SATURATION 95.6 % (95-98); ARTERIAL BLOOD GAS BASE EXCESS -13.3 meq/l (-2-2); ARTERIAL BLOOD GAS PCO2 22.6 mmHg (35-45); ARTERIAL BLOOD GAS PO2 91.7 mmHg (80-100); ARTERIAL BLOOD GAS pH 7.32 (7.35-7.45)
[2019-09-23 09:29] LABS: ALLENS TEST POSITIVE
[2019-09-23] MEDS ORDERED: VANCOMYCIN 1 GRAM (PRE-DOCKED) 1,000 MG/250 ML BAG IVPB SCH (11:30)
[2019-09-23] MEDS: INSULIN SLIDING SCALE (NOVOLOG) 1 VIAL SQ SCH ×4 (11:30→18:40)
[2019-09-23] MEDS ORDERED: VANCOMYCIN 1 GM in D5W (PRE-DOCKED) 1,000 MG/250 ML IVPB ONE (11:30)
[2019-09-23] MEDS: ACETAMINOPHEN 1000 MG/100 ML VIAL (NON FORMULARY) IVPB PRN ×2 (11:35→17:20)
--- NOTE | 2019-09-23 11:36 | PN ---
Progress Note, Physician History of Present Illness: Patient with perforated appendicitis and diarrhea, being treated with IV fluids , antibiotics and bowel rest. He is seen and examined in bed. Reports pain is subsiding a little bit, diarrhea is getting a little less frequent and a little less loose. Voiding ok, frequently with diarrhea, so not always in urinal. No fevers. Labs show slow improvement in dehydration, still with acidosis. Sodium normal, lytes corrected. Hb stable. Wbc still high and left-shifted. Glucose has been ok. BP 100s-110s systolic. On Zosyn and Vanc, ID consult pending. - Current Medication List Current Medications: Active Medications Acetaminophen (Ofirmev Injection -) 1,000 mg IVPB Q6H PRN PRN Reason: PAIN LEVEL 6-10 Potassium Chloride/Sodium Chloride (1/2ns+20meq Kcl) 20 meq in 1,000 mls @ 125 mls/hr IV ASDIR MIKAYLA Last Admin: 09/23/19 02:29 Dose: 125 mls/hr Piperacillin Sod/Tazobactam (Sod 2.25 gm/ Dextrose) 50 mls @ 100 mls/hr IVPB Q6H-IV MIKAYLA; Protocol Stop: 09/23/19 21:29 Last Admin: 09/23/19 09:42 Dose: 100 mls/hr Piperacillin Sod/Tazobactam (Sod 2.25 gm/ Dextrose) 50 mls @ 100 mls/hr IVPB Q6H-IV MIKAYLA; Protocol Stop: 09/25/19 02:59 Vancomycin HCl (Vancomycin (Pre-Docked)) 1,000 mg in 250 mls @ 200 mls/hr IVPB DAILY@1130 MIKAYLA; Protocol Insulin Aspart (Novolog Vial Sliding Scale -) 1 vial SQ Q6HPO [facility]; Protocol Insulin Aspart (Novolog Vial Sliding Scale -) 1 vial SQ ACHS [facility]; Protocol Last Admin: 09/23/19 11:30 Dose: Not Given - Objective Vital Signs: Vital Signs Temperature 97.5 F L 09/23/19 06:00 Pulse Rate 79 09/23/19 06:00 Respiratory Rate 20 09/23/19 06:00 Blood Pressure 109/61 09/23/19 06:00 O2 Sat by Pulse Oximetry (%) 98 09/22/19 21:40 Vital Signs Period Temp Pulse Resp BP Sys/Wilkerson Pulse Ox Last 24 Hr 97.5 F-98.8 F 79-92 17-22 86-119/53-72 94-99 Constitutional: Yes: Well Nourished, No Distress, Calm Eyes: Yes: Conjunctiva Clear, EOM Intact HENT: Yes: Atraumatic, Normocephalic Gastrointestinal: Yes: Soft, Abdomen, Obese, Tenderness (RLQ focally, a little less than yesterday). No: Tenderness, Epigastrium, Tenderness, Rebound Genitourinary: No: Bladder Distention, Incontinence Musculoskeletal: No: Joint Stiffness, Joint Swelling Extremities: No: Cool, Cyanosis Integumentary: No: Jaundice, Rash Neurological: Yes: Alert, Oriented Labs: CBC, BMP 09/23/19 06:40 09/23/19 06:40 CMP Sodium 141 mmol/L (136-145) 09/23/19 06:40 Potassium 4.0 mmol/L (3.5-5.1) 09/23/19 06:40 Chloride 118 mmol/L (98-107) H 09/23/19 06:40 Carbon Dioxide 13 mmol/L (21-32) L 09/23/19 06:40 Anion Gap 10 MMOL/L (8-16) 09/23/19 06:40 BUN 52.3 mg/dL (7-18) H 09/23/19 06:40 Creatinine 2.9 mg/dL (0.55-1.3) H 09/23/19 06:40 Est GFR (CKD-EPI)AfAm 25.69 09/23/19 06:40 Est GFR (CKD-EPI)NonAf 22.17 09/23/19 06:40 POC Glucometer 126 UNITS (80-120) 09/23/19 11:28 Random Glucose 109 mg/dL (74-106) H 09/23/19 06:40 Lactic Acid 0.8 mmol/L (0.4-2.0) 09/22/19 13:25 Calcium 7.4 mg/dL (8.5-10.1) L 09/23/19 06:40 Phosphorus 3.2 mg/dL (2.5-4.9) 09/23/19 06:40 Magnesium 2.0 mg/dL (1.8-2.4) 09/23/19 06:40 Total Bilirubin 0.6 mg/dl (0.2-1) 09/22/19 15:00 AST 11 U/L (15-37) L 09/22/19 15:00 ALT 9 U/L (13-61) L 09/22/19 15:00 Alkaline Phosphatase 38 U/L (45-117) L D 09/22/19 15:00 Troponin I 0.03 ng/ml (0.00-0.05) 09/22/19 10:15 Total Protein 4.7 g/dl (6.4-8.2) L 09/22/19 15:00 Albumin 2.2 g/dl (3.4-5.0) L 09/23/19 06:40 WBC sideways, Hb stable BUN/Cr still decreasing slowly CO2 still low ABG Results ABG pH 7.32 (7.35-7.45) L 09/23/19 08:55 ABG pCO2 at Pt Temp 22.6 mmHg (35-45) L 09/23/19 08:55 ABG pO2 at Pt Temp 91.7 mmHg (80-100) 09/23/19 08:55 ABG HCO3 11.2 mmol/L (22-27) L 09/23/19 08:55 ABG O2 Sat (Measured) 95.6 % (95-98) 09/23/19 08:55 ABG O2 Content 16.4 % vol 09/23/19 08:55 ABG Base Excess -13.3 meq/l (-2-2) L 09/23/19 08:55 Microbiology 09/22/19 10:30 Blood Culture - Preliminary Blood - Peripheral Venous NO GROWTH OBTAINED AFTER 24 HOURS, INCUBATION TO CONTINUE FOR 4 DAYS. 09/22/19 10:15 Blood Culture - Preliminary Blood - Peripheral Venous NO GROWTH OBTAINED AFTER 24 HOURS, INCUBATION TO CONTINUE FOR 4 DAYS. 09/22/19 13:30 Salmonella/Shigella Culture - Preliminary Stool NO ENTERIC PATHOGENS, 24 HOURS, ON PRIMARY PLATES Yersinia Culture - Preliminary NO ENTERIC PATHOGENS, 24 HOURS, ON PRIMARY PLATES Vibrio Culture - Final NO GROWTH OF VIBRIO SPECIES OBTAINED Escherichia coli 0157 Culture - Final NO GROWTH OF E COLI 0157 OBTAINED 09/22/19 09:50 Urine Culture - Final Urine - Urine Clean Catch NO GROWTH OBTAINED Problem List - Problems (1) Acute appendicitis with perforation and localized peritonitis, without gangrene Assessment/Plan: most likely early perforated appendicitis with appendicolith no abscess identified continue NPO/IVF with generous rehydration, still with MELANIE on CKD, and expected to have third-spacing from abdominal process IV antibiotics - continuing Zosyn, consult ID - adjust dosing as renal function improves pain meds prn - IV tylenol first line, minimize/avoid narcotics cultures negative thus far trend labs replete lytes prn strict I/O's - monitor UOP as able plan is conservative treatment with antibiotics, bowel rest, IV fluids, as long as he remains clinically stable and continues to improve by labs and exam ultimately anticipate completing abx course orally on d/c home, with colonoscopy in 6-8 weeks after recovery, followed by interval appendectomy if he deteriorates or fails to improve within 24-48 hrs, would consider rescanning and possible OR following with you patient understands that urgent/emergent operation in the setting of perforation and significant inflammation would carry increased risks of injury to adjacent structures, conversion to open and/or potential for staple line leak /breakdown will discuss with primary team Code(s): K35.32 - ACUTE APPENDICITIS WITH PERF AND LOC PERITONITIS, W/O ABSCS Qualifiers: Appendicitis abscess presence: without abscess Qualified Code(s): K35.32 - Acute appendicitis with perforation and localized peritonitis, without abscess (2) RLQ abdominal pain Assessment/Plan: improved slightly Code(s): R10.31 - RIGHT LOWER QUADRANT PAIN (3) Diarrhea Assessment/Plan: improving slightly Code(s): R19.7 - DIARRHEA, UNSPECIFIED Qualifiers: Diarrhea type: unspecified type Qualified Code(s): R19.7 - Diarrhea, unspecified (4) Dehydration Assessment/Plan: improving, still with MELANIE on CKD, acidosis Code(s): E86.0 - DEHYDRATION (5) Hypertension Assessment/Plan: still with normal to relatively low BPs (for hypertensive pt) hold home meds for now Code(s): I10 - ESSENTIAL (PRIMARY) HYPERTENSION Qualifiers: Hypertension type: essential hypertension Qualified Code(s): I10 - Essential (primary) hypertension (6) Hyperlipidemia Assessment/Plan: hold home statin for now Code(s): E78.5 - HYPERLIPIDEMIA, UNSPECIFIED Qualifiers: Hyperlipidemia type: unspecified Qualified Code(s): E78.5 - Hyperlipidemia , unspecified (7) Diabetes mellitus with chronic kidney disease, without long-term current use of insulin Assessment/Plan: FS with SSI while NPO hold metformin while NPO and at least [address] w/contrast Code(s): E11.22 - TYPE 2 DIABETES MELLITUS W DIABETIC CHRONIC KIDNEY DISEASE Qualifiers: Diabetes mellitus type: type 2 Chronic kidney disease stage: stage 2 (mild ) Qualified Code(s): E11.22 - Type 2 diabetes mellitus with diabetic chronic kidney disease; N18.2 - Chronic kidney disease, stage 2 (mild) (8) Acute kidney injury superimposed on chronic kidney disease Assessment/Plan: improving with hydration monitor closely adjust meds as needed Code(s): N17.9 - ACUTE KIDNEY FAILURE, UNSPECIFIED; N18.9 - CHRONIC KIDNEY DISEASE, UNSPECIFIED
[2019-09-23 12:22] LABS: ANISOCYTOSIS 0; MACROCYTOSIS 0; PLATELET ESTIMATE NORMAL
--- NOTE | 2019-09-23 12:28 | PN ---
Progress Note (short form) - Note Progress Note: ID consult dictated imp/reccd appendicitis-early perforated appendix per surgery melanie history of DM history of HTN smoker no history of MDRO no recent outpt antiiboitcs agree with zosyn can d/c further vancomycin f/u with surgery f/u with renal Problem List - Problems (1) Appendicitis Code(s): K37 - UNSPECIFIED APPENDICITIS Qualifiers: Appendicitis type: unspecified Qualified Code(s): K37 - Unspecified appendicitis (2) MELANIE (acute kidney injury) Code(s): N17.9 - ACUTE KIDNEY FAILURE, UNSPECIFIED
--- NOTE | 2019-09-23 13:03 | EKG ---
Test Reason : Blood Pressure : / mmHG Vent. Rate : 104 BPM Atrial Rate : 104 BPM P-R Int : 160 ms QRS Dur : 084 ms QT Int : 320 ms P-R-T Axes : 061 011 076 degrees QTc Int : 420 ms SINUS TACHYCARDIA WITH PREMATURE ATRIAL COMPLEXES Confirmed by MAUDE MOORE MD ([id number]) on 09/23/2019 1:03:28 PM Referred By: MARTHA BILLY Confirmed By:MAUDE MOORE MD
--- NOTE | 2019-09-23 13:13 | CONSULT ---
Consult Consult Specialty:: Nephrology Reason for Consultation:: MELANIE - History of Present Illness Chief Complaint: diarrhea History of Present Illness: Pt is a 64 year old male with pmhx of htn, dm, and hld who presented to the ER with diarrhea and abdominal pain. He was found to have appendicitis. I was called to evaluate him for MELANIE. He denies history of CKD. He denies dysuria or hematuria. He complains of poor PO intake. He denies fevers or chills. He did have weakness. - History Source History Provided By: Patient - Past Medical History Cardio/Vascular: Yes: HTN, Hyperlipdemia Renal/: Yes: Renal Calculi Endocrine: Yes: Diabetes Mellitus Additional Medical History: broken bones as child - Past Surgical History Past Surgical History: Yes: Colonoscopy (12 yrs ago) Additional Surgical History: lithotripsy (OR, through right flank per pt) - Alcohol/Substance Use Hx Alcohol Use: Yes (social) History of Substance Use: reports: None - Smoking History Smoking history: Current every day smoker Have you smoked in the past 12 months: Yes Aproximately how many cigarettes per day: 7 - Social History Usual Living Arrangement: Alone ADL: Independent Occupation: [employer] History of Recent Travel: No Home Medications - Allergies Allergies/Adverse Reactions: Allergies Allergy/AdvReac Type Severity Reaction Status Date / Time No Known Allergies Allergy Verified 09/22/19 09:20 - Home Medications Home Medications: Ambulatory Orders Losartan Potassium 100 mg PO DAILY 09/23/19 Family Medical History Family History: Denies Review of Systems - Review of Systems Constitutional: reports: Malaise Eyes: reports: No Symptoms HENT: reports: No Symptoms Neck: reports: No Symptoms Cardiovascular: reports: No Symptoms Respiratory: reports: No Symptoms Gastrointestinal: reports: Abdominal Pain, Diarrhea, Nausea Genitourinary: reports: No Symptoms Musculoskeletal: reports: No Symptoms Integumentary: reports: No Symptoms Neurological: reports: No Symptoms Endocrine: reports: No Symptoms Hematology/Lymphatic: reports: No Symptoms Physical Exam Vital Signs: Vital Signs Temperature 97.5 F L 09/23/19 06:00 Pulse Rate 79 09/23/19 06:00 Respiratory Rate 20 09/23/19 06:00 Blood Pressure 109/61 09/23/19 06:00 O2 Sat by Pulse Oximetry (%) 98 09/22/19 21:40 Constitutional: Yes: Calm Eyes: Yes: Conjunctiva Clear HENT: Yes: Atraumatic Neck: Yes: Supple Cardiovascular: Yes: S1, S2 Respiratory: Yes: CTA Bilaterally Gastrointestinal: Yes: Tenderness Renal/: Yes: WNL Musculoskeletal: Yes: WNL Edema: No Integumentary: Yes: WNL Neurological: Yes: Oriented Psychiatric: Yes: Oriented Labs: CBC, BMP 09/23/19 06:40 09/23/19 06:40 Laboratory Tests 09/22/19 09/22/19 09/22/19 09:50 10:15 11:00 Sodium Potassium Carbon Dioxide 15 L BUN Creatinine 4.2 H Urine Protein 2+ H Urine Blood Trace-intact Influenza A (Rapid) Negative Influenza B (Rapid) Negative 09/22/19 09/23/19 09/23/19 15:00 00:02 06:40 Sodium 141 Potassium 4.0 Carbon Dioxide 14 L 13 L BUN 52.3 H Creatinine 3.5 H 3.2 H 2.9 H Urine Protein Urine Blood Influenza A (Rapid) Influenza B (Rapid) Imaging - Results Cat Scan: Report Reviewed Problem List - Problems (1) MELANIE (acute kidney injury) Code(s): N17.9 - ACUTE KIDNEY FAILURE, UNSPECIFIED (2) Appendicitis Code(s): K37 - UNSPECIFIED APPENDICITIS Qualifiers: Appendicitis type: unspecified Qualified Code(s): K37 - Unspecified appendicitis Assessment/Plan Current Medications Generic Name Dose Route Start Last Admin Trade Name Freq PRN Reason Stop Dose Admin Acetaminophen 1,000 mg 09/22/19 17:46 09/23/19 11:35 Ofirmev Injection - IVPB 1,000 mg Q6H PRN Administration PAIN LEVEL 6-10 Potassium Chloride/Sodium Chloride 20 meq in 1,000 mls @ 125 mls/hr 09/23/19 02:00 09/23/19 02:29 1/2ns+20meq Kcl IV 125 mls/hr ASDIR MIKAYLA Administration Piperacillin Sod/Tazobactam 50 mls @ 100 mls/hr 09/23/19 15:00 Sod 2.25 gm/ Dextrose IVPB Q6H-IV MIKAYLA Protocol Insulin Aspart 1 vial 09/23/19 12:00 Novolog Vial Sliding Scale - SQ Q6HPO MIKAYLA Protocol Insulin Aspart 1 vial 09/23/19 11:00 09/23/19 11:30 Novolog Vial Sliding Scale - SQ Not Given ACHS MIKAYLA Protocol Impression 1. MELANIE 2. appendicitis 3. acidosis 4. dm 5. htn Plan - renal function improving - melanie likely from prerenal disease and GI losses - add bicarb to fluids - repeat labs in am - surgery eval
--- NOTE | 2019-09-23 13:50 | CONS ---
INFECTIOUS DISEASE CONSULTATION DATE OF CONSULTATION: DATE OF DICTATION: 09/23/2019 REQUESTED BY: The hospitalist service. HISTORY OF PRESENT ILLNESS: This is a 64-year-old man. Past medical history of some mild diabetes and hypertension. Reports he had a normal physical 3 weeks ago with his PMD. Last week, developed diarrhea and he lost his appetite. He reports the diarrhea was nonbloody. He reports his diarrhea started improving and on Thursday he went to work. He works as a security consultant. He developed acute abdominal pain on Thursday and his diarrhea recurred. He tried Pepcid AC. He tried Tums. He tried Kaopectate, but none of it was helpful. The pain was mainly located in his right lower quadrant. He denied any fevers or chills. He reports generalized weakness. He came to the emergency room on September 22 for evaluation. In the ER, he was noted to have a temperature of 100.9 and a blood pressure of 106/70, his heart rate was 122. He was noted to have tender right lower quadrant with a white count of 25,000 and a BUN of 63 and creatinine of 3.5 with a bicarbonate of 12. He had a CAT scan of his abdomen and pelvis done that showed appendicitis and he was transferred to [facility] for further treatment. He was given vancomycin and Zosyn and I am asked to see him for further recommendations. He is awake and alert. He reports his pain is improved and he is feeling a little bit better than yesterday. He denies any vomiting and he states he has been drinking water and Gatorade at home. PAST MEDICAL HISTORY: Notable for hypertension, hyperlipidemia, and diabetes. He has a history of nephrolithiasis in the past. He reports that he has had one UTI in the past. He reports that his kidney stones had to be removed in the OR by the urologist. SOCIAL HISTORY: He lives alone. He smokes 7 cigarettes a day. Social alcohol use. No other substance use. MEDICATIONS AT HOME: Include metformin, simvastatin, omega-3, losartan, calcium with vitamin D, and amlodipine. FAMILY HISTORY: Unremarkable. REVIEW OF SYSTEMS: He denies headache. He denies cough, trouble swallowing. He has had no vomiting. He has no chest pain. He reports improvement in his abdominal pain and no swelling of his extremities. There is no history of any travel and he has no pets. PHYSICAL EXAMINATION: Vital Signs: His temperature is 97.5, T-maximum was 109 on admission, pulse is 79, blood pressure 109/61, respiratory rate is 20. HEENT: He is normocephalic. His eyes are anicteric. Neck: Supple. Lungs: Clear to auscultation. Heart: Regular rate and rhythm. Abdomen: Soft. He has minimal bowel sounds. He currently has minimal right lower quadrant discomfort. Extremities: Without edema. LABORATORIES: Notable for an admission white count of 29.6, today is 25.3, hemoglobin is 9.2, platelets are 332. His lactic acid was 1.1 on admission. His BUN was 75 and creatinine was 4.2 with a bicarbonate of 15 and a sodium of 128 on admission. Normal LFTs. This morning, his sodium is 141 with a bicarbonate of 13 and a BUN of 52 and creatinine of 2.9. LFTs are normal. Urinalysis shows 2+ protein. Influenza screen is negative. Blood cultures are negative after 24 hours. Stool was sent for routine culture that so far is negative. In summary, this is a 64-year-old man admitted with appendicitis, as well as acute renal failure most likely secondary to his intra-abdominal infection. He received vancomycin and Zosyn, in the emergency room. Would continue the Zosyn, adjusted for his renal failure, at this time. He is to be seen by Nephrology, as well, and is being hydrated. There is no CAT scan report of any hydronephrosis. He is being followed closely by Surgery, regarding his appendicitis. I do not see any need for any further vancomycin, so will discontinue that, at this time. The patient has not recently been in the hospital. He has not recently been on oral antibiotics, making the likelihood of multidrug-resistant organisms very low, so I think piperacillin and tazobactam would be appropriate coverage for intra-abdominal infection. MARCELINA LR M.D. [id number]
[2019-09-23] MEDS ORDERED: amLODIPine BESYLATE 10 MG TABLET (FP) PO SCH (14:00)
[2019-09-23] MEDS: PIPERACILLIN/TAZOB 2.25 GM 2.25 GM in DEXTROSE 5%-WATER - 50 ML IVPB SCH ×2 (14:21→22:15)
--- NOTE | 2019-09-23 14:35 | PN ---
Physical Exam: SUBJECTIVE: Patient seen and examined. He currently denies abdominal pain, nausea, chest pain, or shortness of breath. OBJECTIVE: Vital Signs Period Temp Pulse Resp BP Sys/Wilkerson Pulse Ox Last 24 Hr 97.5 F-98.8 F 79-92 17-22 90-119/53-72 94-99 GENERAL: The patient is awake, alert, and fully oriented, in no acute distress. HEAD: Normal with no signs of trauma. EYES: PERRL, extraocular movements intact, conjunctiva clear. ENT: Ears normal, nares patent, moist mucous membranes. NECK: Trachea midline, full range of motion LUNGS: Clear to auscultation bilaterally HEART: Regular rate and rhythm, no murmur ABDOMEN: Soft, nontender, mild distention, normoactive bowel sounds, no guarding EXTREMITIES: Warm, well-perfused, no edema. NEUROLOGICAL: Cranial nerves II through XII grossly intact. Normal speech. PSYCH: Normal mood, normal affect. SKIN: Warm, dry, normal turgor Laboratory Results - last 24 hr 09/22/19 09/22/19 09/22/19 10:30 13:25 15:00 WBC 25.5 H RBC 2.86 L Hgb 9.0 L Hct 26.3 L D MCV 92.1 MCH 31.6 MCHC 34.4 RDW 12.6 Plt Count 311 D MPV 8.4 Absolute Neuts (auto) 22.3 Neutrophils % No Result Required. Neutrophils % (Manual) 79.0 Band Neutrophils % Lymphocytes % No Result Required. Lymphocytes % (Manual) 14.0 D Monocytes % Monocytes % (Manual) 6 Eosinophils % Eosinophils % (Manual) 1.0 Basophils % Basophils % (Manual) Myelocytes % (Man) Promyelocytes % (Man) Blast Cells % (Manual) Nucleated RBC % Metamyelocytes Hypochromia Platelet Estimate Adequate Polychromasia Poikilocytosis Anisocytosis Microcytosis Macrocytosis Anticoagulation Therapy Puncture Site ABG pH ABG pCO2 at Pt Temp ABG pO2 at Pt Temp ABG HCO3 ABG O2 Sat (Measured) ABG O2 Content ABG Base Excess Angel Test O2 Delivery Device Oxygen Flow Rate Vent Mode Vent Rate Mechanical Rate Pressure Support Vent Sodium Potassium Chloride Carbon Dioxide Anion Gap BUN Creatinine Est GFR (CKD-EPI)AfAm Est GFR (CKD-EPI)NonAf POC Glucometer Random Glucose Lactic Acid 0.8 Calcium Phosphorus Magnesium Total Bilirubin AST ALT Alkaline Phosphatase Total Protein Albumin Blood Type A POSITIVE Antibody Screen Negative 09/22/19 09/22/19 09/22/19 15:00 15:00 15:00 WBC RBC Hgb Hct MCV MCH MCHC RDW Plt Count MPV Absolute Neuts (auto) Neutrophils % Neutrophils % (Manual) Band Neutrophils % Lymphocytes % Lymphocytes % (Manual) Monocytes % Monocytes % (Manual) Eosinophils % Eosinophils % (Manual) Basophils % Basophils % (Manual) Myelocytes % (Man) Promyelocytes % (Man) Blast Cells % (Manual) Nucleated RBC % Metamyelocytes Hypochromia Platelet Estimate Polychromasia Poikilocytosis Anisocytosis Microcytosis Macrocytosis Anticoagulation Therapy Puncture Site ABG pH ABG pCO2 at Pt Temp ABG pO2 at Pt Temp ABG HCO3 ABG O2 Sat (Measured) ABG O2 Content ABG Base Excess Angel Test O2 Delivery Device Oxygen Flow Rate Vent Mode Vent Rate Mechanical Rate Pressure Support Vent Sodium 132 L Potassium 3.4 L Chloride 111 H Carbon Dioxide 12 L Anion Gap 9 BUN 63.0 H Creatinine 3.5 H Est GFR (CKD-EPI)AfAm 20.47 Est GFR (CKD-EPI)NonAf 17.66 POC Glucometer Random Glucose 119 H Lactic Acid Calcium 6.5 L* Phosphorus 3.1 Magnesium 1.6 L Total Bilirubin 0.6 AST 11 L ALT 9 L Alkaline Phosphatase 38 L D Total Protein 4.7 L Albumin 2.1 L Blood Type A POSITIVE Antibody Screen 09/23/19 09/23/19 09/23/19 00:02 00:42 06:40 WBC 27.1 H 25.3 H RBC 3.01 L 3.00 L Hgb 9.2 L 9.2 L Hct 27.6 L D 27.2 L MCV 91.8 90.7 MCH 30.7 30.9 MCHC 33.4 34.0 RDW 13.6 13.6 Plt Count 337 332 MPV 8.5 8.0 Absolute Neuts (auto) 24.1 H 22.3 H Neutrophils % 88.7 H 88.3 H Neutrophils % (Manual) 81.0 83.6 H Band Neutrophils % 8.0 0.0 Lymphocytes % 4.6 L 5.0 L Lymphocytes % (Manual) 7.0 L 5.8 L Monocytes % 5.2 5.1 Monocytes % (Manual) 2 L 8 D Eosinophils % 1.1 1.1 Eosinophils % (Manual) 2.0 1.9 Basophils % 0.4 0.5 Basophils % (Manual) 0.0 1.0 D Myelocytes % (Man) 0 0 Promyelocytes % (Man) 0 0 Blast Cells % (Manual) 0 0 Nucleated RBC % 0 0 Metamyelocytes 0 0 Hypochromia 0 0 Platelet Estimate Normal Normal Polychromasia 0 0 Poikilocytosis 2+ 0 Anisocytosis 2+ 0 Microcytosis 2+ 0 Macrocytosis 0 0 Anticoagulation Therapy Puncture Site ABG pH ABG pCO2 at Pt Temp ABG pO2 at Pt Temp ABG HCO3 ABG O2 Sat (Measured) ABG O2 Content ABG Base Excess Angel Test O2 Delivery Device Oxygen Flow Rate Vent Mode Vent Rate Mechanical Rate Pressure Support Vent Sodium 142 Potassium 4.0 Chloride 117 H Carbon Dioxide 14 L Anion Gap 10 BUN 55.7 H Creatinine 3.2 H Est GFR (CKD-EPI)AfAm 22.81 Est GFR (CKD-EPI)NonAf 19.68 POC Glucometer Random Glucose 121 H Lactic Acid Calcium 7.3 L Phosphorus Magnesium 2.1 Total Bilirubin AST ALT Alkaline Phosphatase Total Protein Albumin 2.2 L Blood Type Antibody Screen 09/23/19 09/23/19 09/23/19 06:40 06:44 08:55 WBC RBC Hgb Hct MCV MCH MCHC RDW Plt Count MPV Absolute Neuts (auto) Neutrophils % Neutrophils % (Manual) Band Neutrophils % Lymphocytes % Lymphocytes % (Manual) Monocytes % Monocytes % (Manual) Eosinophils % Eosinophils % (Manual) Basophils % Basophils % (Manual) Myelocytes % (Man) Promyelocytes % (Man) Blast Cells % (Manual) Nucleated RBC % Metamyelocytes Hypochromia Platelet Estimate Polychromasia Poikilocytosis Anisocytosis Microcytosis Macrocytosis Anticoagulation Therapy No Result Required. Puncture Site Right radial ABG pH 7.32 L ABG pCO2 at Pt Temp 22.6 L ABG pO2 at Pt Temp 91.7 ABG HCO3 11.2 L ABG O2 Sat (Measured) 95.6 ABG O2 Content 16.4 ABG Base Excess -13.3 L Angel Test Positive O2 Delivery Device No Result Required. Oxygen Flow Rate Room air Vent Mode No Result Required. Vent Rate No Result Required. Mechanical Rate No Result Required. Pressure Support Vent No Result Required. Sodium 141 Potassium 4.0 Chloride 118 H Carbon Dioxide 13 L Anion Gap 10 BUN 52.3 H Creatinine 2.9 H Est GFR (CKD-EPI)AfAm 25.69 Est GFR (CKD-EPI)NonAf 22.17 POC Glucometer 110 Random Glucose 109 H Lactic Acid Calcium 7.4 L Phosphorus 3.2 Magnesium 2.0 Total Bilirubin AST ALT Alkaline Phosphatase Total Protein Albumin 2.2 L Blood Type Antibody Screen 09/23/19 11:28 WBC RBC Hgb Hct MCV MCH MCHC RDW Plt Count MPV Absolute Neuts (auto) Neutrophils % Neutrophils % (Manual) Band Neutrophils % Lymphocytes % Lymphocytes % (Manual) Monocytes % Monocytes % (Manual) Eosinophils % Eosinophils % (Manual) Basophils % Basophils % (Manual) Myelocytes % (Man) Promyelocytes % (Man) Blast Cells % (Manual) Nucleated RBC % Metamyelocytes Hypochromia Platelet Estimate Polychromasia Poikilocytosis Anisocytosis Microcytosis Macrocytosis Anticoagulation Therapy Puncture Site ABG pH ABG pCO2 at Pt Temp ABG pO2 at Pt Temp ABG HCO3 ABG O2 Sat (Measured) ABG O2 Content ABG Base Excess Angel Test O2 Delivery Device Oxygen Flow Rate Vent Mode Vent Rate Mechanical Rate Pressure Support Vent Sodium Potassium Chloride Carbon Dioxide Anion Gap BUN Creatinine Est GFR (CKD-EPI)AfAm Est GFR (CKD-EPI)NonAf POC Glucometer 126 Random Glucose Lactic Acid Calcium Phosphorus Magnesium Total Bilirubin AST ALT Alkaline Phosphatase Total Protein Albumin Blood Type Antibody Screen Active Medications Generic Name Dose Route Start Last Admin Trade Name Freq PRN Reason Stop Dose Admin Acetaminophen 1,000 mg 09/22/19 17:46 09/23/19 11:35 Ofirmev Injection - IVPB 1,000 mg Q6H PRN Administration PAIN LEVEL 6-10 Amlodipine Besylate 10 mg 09/23/19 14:00 Norvasc - PO DAILY MIKAYLA Potassium Chloride/Sodium Chloride 20 meq in 1,000 mls @ 125 mls/hr 09/23/19 02:00 09/23/19 02:29 1/2ns+20meq Kcl IV 125 mls/hr ASDIR MIKAYLA Administration Piperacillin Sod/Tazobactam 50 mls @ 100 mls/hr 09/23/19 15:00 Sod 2.25 gm/ Dextrose IVPB Q6H-IV MIKAYLA Protocol Insulin Aspart 1 vial 09/23/19 12:00 09/23/19 13:37 Novolog Vial Sliding Scale - SQ Not Given Q6HPO [facility] Protocol Insulin Aspart 1 vial 09/23/19 11:00 09/23/19 11:30 Novolog Vial Sliding Scale - SQ Not Given ACHS [facility] Protocol ASSESSMENT/PLAN: Mr. Underwood is a 64y/o male with HTN and DM2 who presents with abdominal pain and diarrhea. CT showed appendiceal inflammation and appendicolith as well as diverticulosis but could not r/o diverticulitis. #sepsis 2/2 acute appendicitis vs perforated appendix -leukocytosis downtrending- 25.3 -bowel rest -IV fluids -Zosyn 2.25g Q6H -ID following -surgery following #non-anion gap metabolic acidosis 2/2 infection -ABG pH 7.32 -IV fluids #diverticulosis vs diverticulitis -f/u out pt 6-8 weeks for colonoscopy -Zosyn -surgery following #hyponatremia, resolved -continue IV fluids -monitor labs #hypokalemia, resolved -replete -monitor labs #MELANIE, improving -pre-renal -continue fluids #HTN -amlodipine 10mg -hold home losartan #DM2 -hold home metformin -SSI -BGMs 1/2NS +20meq KCl 125mL/hr monitor Cr, K NPO dispo continue abx and IV fluids Visit type - Emergency Visit Emergency Visit: Yes ED Registration Date: 09/22/19 Care time: The patient presented to the Emergency Department on the above date and was hospitalized for further evaluation of their emergent condition. - New Patient This patient is new to me today: Yes Date on this admission: 09/23/19 - Critical Care Critical Care patient: No - Discharge Referral Referred to [facility] Med P.C.: No ATTENDING PHYSICIAN STATEMENT I saw and evaluated the patient. I reviewed the resident's note and discussed the case with the resident. I agree with the resident's findings and plan as documented. SUBJECTIVE: OBJECTIVE: ASSESSMENT AND PLAN:
--- NOTE | 2019-09-23 18:42 | PN ---
Teaching Attending Note Name of Resident: Jany Chopra ATTENDING PHYSICIAN STATEMENT I saw and evaluated the patient. I reviewed the resident's note and discussed the case with the resident. I agree with the resident's findings and plan as documented. SUBJECTIVE: pain in abd is better . denies SOB , denies NUNO. reported some light headedness . No diarrhea in house . OBJECTIVE: NAD, awake, alert, oriented, pleasant dry MM. CV: RRR, no MRG Lungs: CTAB Abd: soft, TTP in RLQ, adn RUQ. + rebound tenderness. no rigidity. no guarding Ext : No edema ASSESSMENT AND PLAN: Pleasant 64 y/o gentleman who has a HTN, HLP, DM,who presented with diarrhea x 1 week and abd pain x 2 days . he was found to have perforated appendicitis 1- Sepsis due to Acute appendicitis with early perforation . d/w Dr. Foster. - cont IVF - cont zosyn - follow blood cx - No plan for surgical intervention per d/w Dr. foster. plan for scheduled elective procedure after Abx treatment - Monitor abd exam and CBC. 2- MELANIE : due to prerenal azotemia in setting of diarrhea and sepsis. no hydro on CT . -Cr responded to IVF. cont - No need for renal US - renal consult 3- Non anion gap Metabolic acidosis: ABG obtained. likely due to diarrhea and renal failure. No other contributing factors. - cont to monitor Bicarb with hydration 4- H/o HTN: hypotensive on admission due to sepsis. - hold HTN meds 5- h/o Dm : - NPO for now - change SSI to be given q6h with loose coverage 6- DVT Px : SCds . heparin PCP is Dr. Montiel. will transfer patient to dr. Mata's service in [place]
[2019-09-23] MEDS ORDERED: SODIUM BICARBONATE 8.4% 50 MEQ/50 ML VIAL IVPUSH ONE (18:52)
[2019-09-23] MEDS: SODIUM CHLORIDE IV SCH (20:30)
[2019-09-23] MEDS: [UNRECOGNIZED DRUG - OTHER] IV SCH (20:30)
[2019-09-23] MEDS: POTASSIUM CHLORIDE IV SCH (20:30)
[2019-09-23] MEDS: HEPARIN NA (PORCINE) 5,000 UNITS/ML 1ML VIAL SQ SCH (22:59)
[2019-09-24] MEDS: INSULIN SLIDING SCALE (NOVOLOG) 1 VIAL SQ SCH ×5 (00:19→23:21)
[2019-09-24] MEDS ORDERED: PIPERACILLIN/TAZOBACTAM 2.25 GM VIAL IVPB ONE ×4 (02:11→20:30)
[2019-09-24] MEDS ORDERED: DEXTROSE 5%-WATER - 50 ML IVPB ONE ×4 (02:12→20:30)
[2019-09-24] MEDS: [UNRECOGNIZED DRUG - OTHER] IV SCH ×3 (03:47→21:44)
[2019-09-24] MEDS: SODIUM CHLORIDE IV SCH ×3 (03:47→21:44)
[2019-09-24] MEDS: PIPERACILLIN/TAZOB 2.25 GM 2.25 GM in DEXTROSE 5%-WATER - 50 ML IVPB SCH ×4 (03:47→20:43)
[2019-09-24] MEDS: POTASSIUM CHLORIDE IV SCH ×3 (03:47→21:44)
[2019-09-24] MEDS: HEPARIN NA (PORCINE) 5,000 UNITS/ML 1ML VIAL SQ SCH ×3 (06:26→21:13)
[2019-09-24 07:26] LABS: BASO % 0.5 % (0-2.0); EOS % 2.2 % (0-4.5); HEMATOCRIT 26.6 % (35.4-49); LYMPH % 5.8 % (8-40); MCH 30.7 pg (25.7-33.7); MCHC 33.9 g/dl (32.0-35.9); MEAN CELL VOLUME 90.4 fl (80-96); MEAN PLT VOLUME 8.5 fl (7.5-11.1); MONO % 5.4 % (3.8-10.2); NEUT % 86.1 % (42.8-82.8); PLATELET COUNT 361 K/MM3 (134-434); RBC 2.95 M/mm3 (4.00-5.60); WHITE BLOOD COUNT 21.6 K/mm3 (4.0-10.0)
[2019-09-24 07:37] LABS: ALBUMIN 2.4 g/dl (3.4-5.0); BILIRUBIN,TOTAL 0.3 mg/dL (0.2-1); BLOOD UREA NITROGEN 33.8 mg/dL (7-18); CALCIUM 7.7 mg/dL (8.5-10.1); CREATININE 2.2 mg/dL (0.55-1.3); MAGNESIUM 1.8 mg/dL (1.8-2.4); TOT PROT 5.6 g/dl (6.4-8.2)
[2019-09-24] MEDS: amLODIPine BESYLATE 10 MG TABLET (FP) PO SCH (10:23)
--- NOTE | 2019-09-24 12:18 | PN ---
Teaching Attending Note Name of Resident: Cara Armendariz ATTENDING PHYSICIAN STATEMENT I saw and evaluated the patient. I reviewed the resident's note and discussed the case with the resident. I agree with the resident's findings and plan as documented. SUBJECTIVE: no fever or chills. abd pain is stable. diarrhea has improved . 8 small BMs yesterday. no SOB OBJECTIVE: NAD, awake, alert,pleasant MMM CV: RRR, no MRG Lungs: CTAB Abd: soft, TTP in RLQ,no rebound tenderness . no rigidity. no guarding Ext : No edema ASSESSMENT AND PLAN: Pleasant 64 y/o gentleman who has a HTN, HLP, DM,who presented with diarrhea x 1 week and abd pain x 2 days . he was found to have perforated appendicitis 1- Sepsis due to Acute appendicitis with early perforation. - cont IVF - cont zosyn - follow blood cx ( NGTD) - schedule sx at a later date 2- MELANIE: due to prerenal azotemia in setting of diarrhea and sepsis. - improved Cr. cont IVF 3- Non anion gap Metabolic acidosis: due to diarrhea and renal failure. Bicard improved to 15 -cont Bicarb with IVF 4- H/o HTN:hold BP meds 5- h/o DM : - NPO for now -loose SSI if needed . sugar on lower side 6- DVT Px : SCds . heparin
--- NOTE | 2019-09-24 12:46 | PN ---
Progress Note (short form) - Note Progress Note: ambulating less abdominal pain remains npo Vital Signs Period Temp Pulse Resp BP Sys/Wilkerson Pulse Ox Last 24 Hr 97.6 F-98.8 F 72-89 18-20 103-123/49-67 100-100 cor-rrr lungs clear abd soft,nt at present ext no edema CBC, BMP 09/24/19 06:25 09/24/19 06:25 Microbiology 09/22/19 13:30 Stool Salmonella/Shigella Culture - Final NO GROWTH OF SALMONELLA OR SHIGELLA SPECIES OBTAINED 09/22/19 13:30 Stool Campylobacter Culture - Final NO GROWTH OF CAMPYLOBACTER SPECIES OBTAINED 09/22/19 13:30 Stool Yersinia Culture - Final NO GROWTH OF YERSINIA SPECIES OBTAINED 09/22/19 13:30 Stool Vibrio Culture - Final NO GROWTH OF VIBRIO SPECIES OBTAINED 09/22/19 13:30 Stool Escherichia coli 0157 Culture - Final NO GROWTH OF E COLI 0157 OBTAINED 09/22/19 10:30 Blood - Peripheral Venous Blood Culture - Preliminary NO GROWTH OBTAINED AFTER 48 HOURS, INCUBATION TO CONTINUE FOR 3 DAYS. 09/22/19 10:15 Blood - Peripheral Venous Blood Culture - Preliminary NO GROWTH OBTAINED AFTER 48 HOURS, INCUBATION TO CONTINUE FOR 3 DAYS. 09/22/19 09:50 Urine - Urine Clean Catch Urine Culture - Final NO GROWTH OBTAINED a/p appendicitis- erly perforation? continue zosyn leukocytosis trending down melanie- improving with hydration will need to increase zosyn dosing in am if creatinine continues to improve await surgical f/u timing of repeat ct scan? Problem List - Problems (1) Appendicitis Code(s): K37 - UNSPECIFIED APPENDICITIS Qualifiers: Appendicitis type: unspecified Qualified Code(s): K37 - Unspecified appendicitis (2) MELANIE (acute kidney injury) Code(s): N17.9 - ACUTE KIDNEY FAILURE, UNSPECIFIED
--- NOTE | 2019-09-24 13:11 | PN ---
Physical Exam: SUBJECTIVE: Patient seen and examined. He denies abdominal pain. He reports multiple episodes of diarrhea overnight but stool is becoming more firm. OBJECTIVE: Vital Signs Period Temp Pulse Resp BP Sys/Wilkerson Pulse Ox Last 24 Hr 97.6 F-98.8 F 72-89 18-20 103-123/49-67 100-100 GENERAL: The patient is awake, alert, and fully oriented, in no acute distress. HEAD: Normal with no signs of trauma. EYES: PERRL, extraocular movements intact, conjunctiva clear. ENT: Ears normal, nares patent, moist mucous membranes. NECK: Trachea midline, full range of motion LUNGS: Clear to auscultation bilaterally HEART: Regular rate and rhythm, no murmur ABDOMEN: Soft, nontender, non-distended, normoactive bowel sounds, no guarding EXTREMITIES: Warm, well-perfused, no edema. NEUROLOGICAL: Cranial nerves II through XII grossly intact. Normal speech. PSYCH: Normal mood, normal affect. SKIN: Warm, dry, normal turgor Laboratory Results - last 24 hr 09/23/19 09/24/19 09/24/19 17:17 00:07 06:13 WBC RBC Hgb Hct MCV MCH MCHC RDW Plt Count MPV Absolute Neuts (auto) Total Counted Neutrophils % Neutrophils % (Manual) Band Neutrophils % Lymphocytes % Lymphocytes % (Manual) Monocytes % Monocytes % (Manual) Eosinophils % Eosinophils % (Manual) Basophils % Nucleated RBC % Sodium Potassium Chloride Carbon Dioxide Anion Gap BUN Creatinine Est GFR (CKD-EPI)AfAm Est GFR (CKD-EPI)NonAf POC Glucometer 100 95 89 Random Glucose Calcium Phosphorus Magnesium Total Bilirubin AST ALT Alkaline Phosphatase Total Protein Albumin 09/24/19 09/24/19 09/24/19 06:25 06:25 12:14 WBC 21.6 H RBC 2.95 L Hgb 9.0 L Hct 26.6 L MCV 90.4 MCH 30.7 MCHC 33.9 RDW 14.0 Plt Count 361 MPV 8.5 Absolute Neuts (auto) 18.6 H Total Counted 100 Neutrophils % 86.1 H Neutrophils % (Manual) 82.0 Band Neutrophils % 5.0 Lymphocytes % 5.8 L Lymphocytes % (Manual) 6.0 L Monocytes % 5.4 Monocytes % (Manual) 5 Eosinophils % 2.2 D Eosinophils % (Manual) 2.0 Basophils % 0.5 Nucleated RBC % 0 Sodium 144 Potassium 4.0 Chloride 119 H Carbon Dioxide 15 L Anion Gap 11 BUN 33.8 H Creatinine 2.2 H Est GFR (CKD-EPI)AfAm 35.88 Est GFR (CKD-EPI)NonAf 30.96 POC Glucometer 81 Random Glucose 84 Calcium 7.7 L Phosphorus 3.0 Magnesium 1.8 Total Bilirubin 0.3 AST 14 L ALT 14 Alkaline Phosphatase 60 Total Protein 5.6 L Albumin 2.4 L Active Medications Generic Name Dose Route Start Last Admin Trade Name Freq PRN Reason Stop Dose Admin Acetaminophen 1,000 mg 09/22/19 17:46 09/23/19 17:20 Ofirmev Injection - IVPB 1,000 mg Q6H PRN Administration PAIN LEVEL 6-10 Amlodipine Besylate 10 mg 09/23/19 17:14 09/24/19 10:23 Norvasc - PO Not Given DAILY [facility] Heparin Sodium (Porcine) 5,000 unit 09/23/19 22:00 09/24/19 06:26 Heparin - SQ 5,000 unit TID MIKAYLA Administration Piperacillin Sod/Tazobactam 50 mls @ 100 mls/hr 09/23/19 15:00 09/24/19 08:01 Sod 2.25 gm/ Dextrose IVPB 100 mls/hr Q6H-IV MIKAYLA Administration Protocol Potassium Chloride 20 meq/ 1,060 mls @ 125 mls/hr 09/23/19 19:00 09/24/19 03: 47 Sodium Bicarbonate 50 meq/ IV 125 mls/hr Sodium Chloride Q8H MIKAYLA Administration Insulin Aspart 1 vial 09/23/19 12:00 09/24/19 12:16 Novolog Vial Sliding Scale - SQ Not Given Q6HPO [facility] Protocol ASSESSMENT/PLAN: Mr. Underwood is a 64y/o male with HTN and DM2 who presents with abdominal pain and diarrhea. CT showed appendiceal inflammation with evidence of early perforation and appendicolith, as well as diverticulosis but could not r/o diverticulitis. #sepsis 2/2 acute appendicitis with early perforation of appendix -leukocytosis downtrending- 21.6 -bowel rest -IV fluids -Zosyn 2.25g Q6H -ID following -surgery following- will have elective appy after acute illness resolves #non-anion gap metabolic acidosis 2/2 infection, improved -bicarb improving -IV fluids #MELANIE, improving -pre-renal likely given diarrhea -continue fluids #hyponatremia, resolved -continue IV fluids -monitor labs #hypokalemia, resolved -replete -monitor labs #HTN -amlodipine 10mg -hold home losartan #DM2 -hold home metformin -SSI -BGMs 1/2NS 20mew KCl 125mL/hr monitor Cr, K NPO dispo continue abx and IV fluids Visit type - Emergency Visit Emergency Visit: Yes ED Registration Date: 09/22/19 Care time: The patient presented to the Emergency Department on the above date and was hospitalized for further evaluation of their emergent condition. - New Patient This patient is new to me today: No - Critical Care Critical Care patient: No - Discharge Referral Referred to [facility] Med P.C.: No ATTENDING PHYSICIAN STATEMENT I saw and evaluated the patient. I reviewed the resident's note and discussed the case with the resident. I agree with the resident's findings and plan as documented. SUBJECTIVE: OBJECTIVE: ASSESSMENT AND PLAN:
--- NOTE | 2019-09-24 14:06 | PN ---
Progress Note, Physician History of Present Illness: Patient with perforated appendicitis and diarrhea, being treated with IV fluids , antibiotics and bowel rest. He is seen and examined in bed, with sister present. Reports pain is improving daily, now more just discomfort; diarrhea is less frequent and more formed. Voiding ok. No fevers. Labs show continued slow improvement in wbc, renal function, still with acidosis (CO2 15). Hb stable but anemic - pt denies knowledge of anemia previously. Glucose has been ok. BP 100s-120s systolic, improving. On Zosyn per ID, renally dosed. Renal also following, got bicarb. - Current Medication List Current Medications: Active Medications Acetaminophen (Ofirmev Injection -) 1,000 mg IVPB Q6H PRN PRN Reason: PAIN LEVEL 6-10 Last Admin: 09/23/19 17:20 Dose: 1,000 mg Amlodipine Besylate (Norvasc -) 10 mg PO DAILY [facility] Last Admin: 09/24/19 10:23 Dose: Not Given Heparin Sodium (Porcine) (Heparin -) 5,000 unit SQ TID [facility] Last Admin: 09/24/19 06:26 Dose: 5,000 unit Piperacillin Sod/Tazobactam (Sod 2.25 gm/ Dextrose) 50 mls @ 100 mls/hr IVPB Q6H-IV [facility]; Protocol Last Admin: 09/24/19 08:01 Dose: 100 mls/hr Potassium Chloride 20 meq/Sodium Bicarbonate 50 meq/Sodium Chloride 1,060 mls @ 125 mls/hr IV Q8H [facility] Last Admin: 09/24/19 03:47 Dose: 125 mls/hr Insulin Aspart (Novolog Vial Sliding Scale -) 1 vial SQ Q6HPO [facility]; Protocol Last Admin: 09/24/19 12:16 Dose: Not Given - Objective Vital Signs: Vital Signs Temperature 97.8 F 09/24/19 10:00 Pulse Rate 78 09/24/19 10:00 Respiratory Rate 18 09/24/19 10:00 Blood Pressure 106/59 L 09/24/19 10:00 O2 Sat by Pulse Oximetry (%) 100 09/24/19 09:00 Constitutional: Yes: Well Nourished, No Distress, Calm Eyes: Yes: Conjunctiva Clear, EOM Intact HENT: Yes: Atraumatic, Normocephalic Respiratory: Yes: Regular, Other (excellent effort on IS - can get 2000-2500ml with steady effort). No: On Nasal O2 Gastrointestinal: Yes: Soft, Tenderness (mild RLQ, less than yesterday). No: Tenderness, Epigastrium, Tenderness, Rebound (no guarding or rebound) Genitourinary: No: CVA Tenderness - Left, CVA Tenderness - Right Extremities: No: Cool, Cyanosis Integumentary: No: Jaundice, Rash Neurological: Yes: Alert, Oriented. No: Unsteady Gait Labs: CBC, BMP 09/24/19 06:25 09/24/19 06:25 CMP Sodium 144 mmol/L (136-145) 09/24/19 06:25 Potassium 4.0 mmol/L (3.5-5.1) 09/24/19 06:25 Chloride 119 mmol/L (98-107) H 09/24/19 06:25 Carbon Dioxide 15 mmol/L (21-32) L 09/24/19 06:25 Anion Gap 11 MMOL/L (8-16) 09/24/19 06:25 BUN 33.8 mg/dL (7-18) H 09/24/19 06:25 Creatinine 2.2 mg/dL (0.55-1.3) H 09/24/19 06:25 Est GFR (CKD-EPI)AfAm 35.88 09/24/19 06:25 Est GFR (CKD-EPI)NonAf 30.96 09/24/19 06:25 POC Glucometer 81 UNITS (80-120) 09/24/19 12:14 Random Glucose 84 mg/dL (74-106) 09/24/19 06:25 Lactic Acid 0.8 mmol/L (0.4-2.0) 09/22/19 13:25 Calcium 7.7 mg/dL (8.5-10.1) L 09/24/19 06:25 Phosphorus 3.0 mg/dL (2.5-4.9) 09/24/19 06:25 Magnesium 1.8 mg/dL (1.8-2.4) 09/24/19 06:25 Total Bilirubin 0.3 mg/dL (0.2-1) 09/24/19 06:25 AST 14 U/L (15-37) L 09/24/19 06:25 ALT 14 U/L (13-61) 09/24/19 06:25 Alkaline Phosphatase 60 U/L (45-117) 09/24/19 06:25 Troponin I 0.03 ng/ml (0.00-0.05) 09/22/19 10:15 Total Protein 5.6 g/dl (6.4-8.2) L 09/24/19 06:25 Albumin 2.4 g/dl (3.4-5.0) L 09/24/19 06:25 Problem List - Problems (1) Acute appendicitis with perforation and localized peritonitis, without gangrene Assessment/Plan: early perforated appendicitis with appendicolith but no abscess NPO/IVF with generous hydration, still with MELANIE on CKD, and expected to have third-spacing from abdominal process will allow ice chips today if pain and tenderness even less or resolved tomorrow, will consider clears continue IV antibiotics - Zosyn per ID - adjust dosing as renal function improves pain meds prn - IV tylenol first line - has not used since last night into morning cultures negative trend labs daily replete lytes prn strict I/O's - monitor UOP continue conservative treatment with antibiotics, bowel rest, IV fluids - progressing slowly ultimately anticipate completing abx course orally on d/c home, with colonoscopy in 6-8 weeks after recovery, followed by interval appendectomy would not repeat CT at this time following with you will discuss with primary team Code(s): K35.32 - ACUTE APPENDICITIS WITH PERF AND LOC PERITONITIS, W/O ABSCS Qualifiers: Appendicitis abscess presence: without abscess Qualified Code(s): K35.32 - Acute appendicitis with perforation and localized peritonitis, without abscess (2) RLQ abdominal pain Assessment/Plan: improving daily Code(s): R10.31 - RIGHT LOWER QUADRANT PAIN (3) Diarrhea Assessment/Plan: improving steadily Code(s): R19.7 - DIARRHEA, UNSPECIFIED Qualifiers: Diarrhea type: unspecified type Qualified Code(s): R19.7 - Diarrhea, unspecified (4) Dehydration Assessment/Plan: improved, voiding well, still acidotic Code(s): E86.0 - DEHYDRATION (5) Hypertension Assessment/Plan: normal to relatively low BPs (for hypertensive pt) hold home meds for now Code(s): I10 - ESSENTIAL (PRIMARY) HYPERTENSION Qualifiers: Hypertension type: essential hypertension Qualified Code(s): I10 - Essential (primary) hypertension (6) Hyperlipidemia Assessment/Plan: hold home statin for now Code(s): E78.5 - HYPERLIPIDEMIA, UNSPECIFIED Qualifiers: Hyperlipidemia type: unspecified Qualified Code(s): E78.5 - Hyperlipidemia , unspecified (7) Diabetes mellitus with chronic kidney disease, without long-term current use of insulin Assessment/Plan: FS with SSI while NPO hold metformin while NPO monitor glucose when po resumed for need to restart home med Code(s): E11.22 - TYPE 2 DIABETES MELLITUS W DIABETIC CHRONIC KIDNEY DISEASE Qualifiers: Diabetes mellitus type: type 2 Chronic kidney disease stage: stage 2 (mild ) Qualified Code(s): E11.22 - Type 2 diabetes mellitus with diabetic chronic kidney disease; N18.2 - Chronic kidney disease, stage 2 (mild) (8) Acute kidney injury superimposed on chronic kidney disease Assessment/Plan: improving steadily renal following monitor closely adjust meds as needed Code(s): N17.9 - ACUTE KIDNEY FAILURE, UNSPECIFIED; N18.9 - CHRONIC KIDNEY DISEASE, UNSPECIFIED
--- NOTE | 2019-09-24 16:14 | PN ---
Progress Note, Physician History of Present Illness: Pt seen and examined at bedside. He is awake and alert. He feels that the abd pain is improved. - Current Medication List Current Medications: Active Medications Acetaminophen (Ofirmev Injection -) 1,000 mg IVPB Q6H PRN PRN Reason: PAIN LEVEL 6-10 Last Admin: 09/23/19 17:20 Dose: 1,000 mg Amlodipine Besylate (Norvasc -) 10 mg PO DAILY [facility] Last Admin: 09/24/19 10:23 Dose: Not Given Heparin Sodium (Porcine) (Heparin -) 5,000 unit SQ TID [facility] Last Admin: 09/24/19 15:02 Dose: 5,000 unit Piperacillin Sod/Tazobactam (Sod 2.25 gm/ Dextrose) 50 mls @ 100 mls/hr IVPB Q6H-IV [facility]; Protocol Last Admin: 09/24/19 15:03 Dose: 100 mls/hr Potassium Chloride 20 meq/Sodium Bicarbonate 50 meq/Sodium Chloride 1,060 mls @ 125 mls/hr IV Q8H [facility] Last Admin: 09/24/19 03:47 Dose: 125 mls/hr Insulin Aspart (Novolog Vial Sliding Scale -) 1 vial SQ Q6HPO [facility]; Protocol Last Admin: 09/24/19 12:16 Dose: Not Given - Objective Vital Signs: Vital Signs Temperature 98.2 F 09/24/19 14:00 Pulse Rate 84 09/24/19 14:00 Respiratory Rate 18 09/24/19 14:00 Blood Pressure 124/55 L 09/24/19 14:00 O2 Sat by Pulse Oximetry (%) 100 09/24/19 09:00 Constitutional: Yes: Calm Eyes: Yes: Conjunctiva Clear HENT: Yes: Atraumatic Neck: Yes: Supple Cardiovascular: Yes: S1, S2 Respiratory: Yes: CTA Bilaterally Gastrointestinal: Yes: Normal Bowel Sounds, Soft Genitourinary: Yes: WNL Musculoskeletal: Yes: WNL Edema: No Integumentary: Yes: WNL Neurological: Yes: Oriented Psychiatric: Yes: Oriented Labs: CBC, BMP 09/24/19 06:25 09/24/19 06:25 INR, PTT INR 1.36 (0.82-1.09) H 09/22/19 10:15 Problem List - Problems (1) MELANIE (acute kidney injury) Code(s): N17.9 - ACUTE KIDNEY FAILURE, UNSPECIFIED (2) Appendicitis Code(s): K37 - UNSPECIFIED APPENDICITIS Qualifiers: Appendicitis type: unspecified Qualified Code(s): K37 - Unspecified appendicitis Assessment/Plan Current Medications Generic Name Dose Route Start Last Admin Trade Name Freq PRN Reason Stop Dose Admin Acetaminophen 1,000 mg 09/22/19 17:46 09/23/19 17:20 Ofirmev Injection - IVPB 1,000 mg Q6H PRN Administration PAIN LEVEL 6-10 Amlodipine Besylate 10 mg 09/23/19 17:14 09/24/19 10:23 Norvasc - PO Not Given DAILY [facility] Heparin Sodium (Porcine) 5,000 unit 09/23/19 22:00 09/24/19 15:02 Heparin - SQ 5,000 unit TID [facility] Administration Piperacillin Sod/Tazobactam 50 mls @ 100 mls/hr 09/23/19 15:00 09/24/19 15:03 Sod 2.25 gm/ Dextrose IVPB 100 mls/hr Q6H-IV [facility] Administration Protocol Potassium Chloride 20 meq/ 1,060 mls @ 125 mls/hr 09/23/19 19:00 09/24/19 03: 47 Sodium Bicarbonate 50 meq/ IV 125 mls/hr Sodium Chloride Q8H [facility] Administration Insulin Aspart 1 vial 09/23/19 12:00 09/24/19 12:16 Novolog Vial Sliding Scale - SQ Not Given Q6HPO [facility] Protocol Impression 1. MELANIE 2. appendicitis 3. acidosis 4. dm 5. htn Plan - cont fluids - renal function is improving - bicarb improving - repeat labs in am - melanie likely from prerenal disease and GI losses - surgery eval appreciated
[2019-09-24 19:53] VITALS: BMI 26.6
[2019-09-25] MEDS ORDERED: PIPERACILLIN/TAZOBACTAM 2.25 GM VIAL IVPB ONE ×2 (02:41→08:33)
[2019-09-25] MEDS ORDERED: DEXTROSE 5%-WATER - 50 ML IVPB ONE ×2 (02:41→08:33)
[2019-09-25] MEDS: PIPERACILLIN/TAZOB 2.25 GM 2.25 GM in DEXTROSE 5%-WATER - 50 ML IVPB SCH ×2 (02:47→08:59)
[2019-09-25] MEDS: POTASSIUM CHLORIDE IV SCH ×2 (03:10→11:20)
[2019-09-25] MEDS: SODIUM CHLORIDE IV SCH ×2 (03:10→11:20)
[2019-09-25] MEDS: [UNRECOGNIZED DRUG - OTHER] IV SCH ×2 (03:10→11:20)
[2019-09-25] MEDS: HEPARIN NA (PORCINE) 5,000 UNITS/ML 1ML VIAL SQ SCH ×3 (06:40→22:25)
[2019-09-25 06:49] LABS: HEMATOCRIT 26.8 % (35.4-49); HEMOGLOBIN 8.9 GM/dL (11.7-16.9); MCH 30.3 pg (25.7-33.7); MCHC 33.4 g/dl (32.0-35.9); MEAN CELL VOLUME 90.8 fl (80-96); MEAN PLT VOLUME 8.3 fl (7.5-11.1); PLATELET COUNT 348 K/MM3 (134-434); RBC 2.95 M/mm3 (4.00-5.60); RDW 14.1 % (11.9-15.9); WHITE BLOOD COUNT 18.5 K/mm3 (4.0-10.0)
[2019-09-25] MEDS: INSULIN SLIDING SCALE (NOVOLOG) 1 VIAL SQ SCH ×4 (06:56→23:45)
[2019-09-25 06:57] LABS: CALCIUM 7.9 mg/dL (8.5-10.1); CREATININE 1.8 mg/dL (0.55-1.3); MAGNESIUM 1.6 mg/dL (1.8-2.4); PHOSPHOROUS 2.5 mg/dL (2.5-4.9); POTASSIUM 3.9 mmol/L (3.5-5.1)
[2019-09-25] MEDS: amLODIPine BESYLATE 10 MG TABLET (FP) PO SCH (09:07)
[2019-09-25] MEDS ORDERED: MAGNESIUM SULF 50% (8.12 MEQ/2 ML-1 GM VIAL) IVPB ONE (09:26)
--- NOTE | 2019-09-25 11:47 | PN ---
Progress Note (short form) - Note Progress Note: ambulating no abdominal pain still NPO Vital Signs Period Temp Pulse Resp BP Sys/Wilkerson Pulse Ox Last 24 Hr 97.8 F-98.6 F 81-89 18-20 105-131/55-80 100-100 cor-rrr lungs decreased bs at bases abd soft, +BS, nt ext no edema CBC, BMP 09/25/19 06:05 09/25/19 06:05 Laboratory Tests 09/25/19 06:05 C-Reactive Protein 12.6 H Microbiology 09/22/19 10:30 Blood - Peripheral Venous Blood Culture - Preliminary NO GROWTH OBTAINED AFTER 72 HOURS, INCUBATION TO CONTINUE FOR 2 DAYS. 09/22/19 10:15 Blood - Peripheral Venous Blood Culture - Preliminary NO GROWTH OBTAINED AFTER 72 HOURS, INCUBATION TO CONTINUE FOR 2 DAYS. 09/22/19 13:30 Stool Salmonella/Shigella Culture - Final NO GROWTH OF SALMONELLA OR SHIGELLA SPECIES OBTAINED 09/22/19 13:30 Stool Campylobacter Culture - Final NO GROWTH OF CAMPYLOBACTER SPECIES OBTAINED 09/22/19 13:30 Stool Yersinia Culture - Final NO GROWTH OF YERSINIA SPECIES OBTAINED 09/22/19 13:30 Stool Vibrio Culture - Final NO GROWTH OF VIBRIO SPECIES OBTAINED 09/22/19 13:30 Stool Escherichia coli 0157 Culture - Final NO GROWTH OF E COLI 0157 OBTAINED 09/22/19 09:50 Urine - Urine Clean Catch Urine Culture - Final NO GROWTH OBTAINED a/p appendicitis- early perforation? r/o RLQ abscess continue zosyn adjust dose for improving renal function leukocytosis trending down slowly would consider repeat ct scan to r/o RLQ abscess melanie- improving with hydration- crcl now over 40 Problem List - Problems (1) Appendicitis Code(s): K37 - UNSPECIFIED APPENDICITIS Qualifiers: Appendicitis type: unspecified Qualified Code(s): K37 - Unspecified appendicitis (2) MELANIE (acute kidney injury) Code(s): N17.9 - ACUTE KIDNEY FAILURE, UNSPECIFIED
[2019-09-25] MEDS ORDERED: POTASSIUM CHLORIDE IV SCH (13:36)
[2019-09-25] MEDS ORDERED: [UNRECOGNIZED DRUG - OTHER] IV SCH (13:36)
[2019-09-25] MEDS ORDERED: SODIUM CHLORIDE IV SCH (13:36)
--- NOTE | 2019-09-25 13:41 | PN ---
Progress Note, Physician History of Present Illness: Patient with perforated appendicitis, being treated with IV fluids, antibiotics and bowel rest. He is seen and examined in [facility], with sister present. Reports no pain anymore. Labs show continued slow improvement in wbc, renal function, acidosis (CO2 now 17). Hb stable but anemic - pt denies knowledge of anemia previously. Glucose has been ok. BP 110s-120s systolic, improving. On Zosyn per ID, adjusting dose for improving renal function. Renal also following , getting bicarb in fluids. - Current Medication List Current Medications: Active Medications Acetaminophen (Ofirmev Injection -) 1,000 mg IVPB Q6H PRN PRN Reason: PAIN LEVEL 6-10 Last Admin: 09/23/19 17:20 Dose: 1,000 mg Amlodipine Besylate (Norvasc -) 10 mg PO DAILY [facility] Last Admin: 09/25/19 09:07 Dose: Not Given Heparin Sodium (Porcine) (Heparin -) 5,000 unit SQ TID [facility] Last Admin: 09/25/19 06:40 Dose: 5,000 unit Piperacillin Sod/Tazobactam (Sod 4.5 gm/ Dextrose) 100 mls @ 200 mls/hr IVPB Q8H-IV [facility]; Protocol Potassium Chloride 20 meq/Sodium Bicarbonate 50 meq/Sodium Chloride 1,060 mls @ 100 mls/hr IV Q8H [facility] Insulin Aspart (Novolog Vial Sliding Scale -) 1 vial SQ Q6HPO [facility]; Protocol Last Admin: 09/25/19 11:20 Dose: Not Given - Objective Vital Signs: Vital Signs Temperature 97.8 F 09/25/19 08:13 Pulse Rate 83 09/25/19 08:13 Respiratory Rate 18 09/25/19 09:00 Blood Pressure 125/65 09/25/19 08:13 O2 Sat by Pulse Oximetry (%) 100 09/25/19 09:00 Constitutional: Yes: Well Nourished, No Distress, Calm Eyes: Yes: Conjunctiva Clear, EOM Intact HENT: Yes: Atraumatic, Normocephalic Gastrointestinal: Yes: Soft, Abdomen, Obese. No: Tenderness, Tenderness, Epigastrium Musculoskeletal: No: Joint Stiffness, Joint Swelling Extremities: No: Cool, Cyanosis Integumentary: No: Jaundice, Rash Neurological: Yes: Alert, Oriented. No: Unsteady Gait Labs: CBC, BMP 09/25/19 06:05 09/25/19 06:05 Problem List - Problems (1) Acute appendicitis with perforation and localized peritonitis, without gangrene Assessment/Plan: early perforated appendicitis with appendicolith but no abscess NPO/IVF except ice chips, tolerating, with IV hydration MELANIE on CKD improving, expected to have third-spacing from abdominal process pain and tenderness essentially resolved, will start clears continue IV antibiotics - Zosyn per ID - adjust dosing as renal function improves pain meds prn - IV tylenol cultures negative trend labs daily replete lytes prn strict I/O's - monitor UOP continue conservative treatment with antibiotics, bowel rest, IV fluids - progressing slowly ultimately anticipate completing abx course orally on d/c home, with colonoscopy in 6-8 weeks after recovery, followed by interval appendectomy may repeat CT in next day or two to eval for drainable collection following with you discussed with Dr. Clark Code(s): K35.32 - ACUTE APPENDICITIS WITH PERF AND LOC PERITONITIS, W/O ABSCS Qualifiers: Appendicitis abscess presence: without abscess Qualified Code(s): K35.32 - Acute appendicitis with perforation and localized peritonitis, without abscess (2) RLQ abdominal pain Code(s): R10.31 - RIGHT LOWER QUADRANT PAIN (3) Diarrhea Code(s): R19.7 - DIARRHEA, UNSPECIFIED Qualifiers: Diarrhea type: unspecified type Qualified Code(s): R19.7 - Diarrhea, unspecified (4) Dehydration Code(s): E86.0 - DEHYDRATION (5) Hypertension Code(s): I10 - ESSENTIAL (PRIMARY) HYPERTENSION Qualifiers: Hypertension type: essential hypertension Qualified Code(s): I10 - Essential (primary) hypertension (6) Hyperlipidemia Code(s): E78.5 - HYPERLIPIDEMIA, UNSPECIFIED Qualifiers: Hyperlipidemia type: unspecified Qualified Code(s): E78.5 - Hyperlipidemia , unspecified (7) Diabetes mellitus with chronic kidney disease, without long-term current use of insulin Code(s): E11.22 - TYPE 2 DIABETES MELLITUS W DIABETIC CHRONIC KIDNEY DISEASE Qualifiers: Diabetes mellitus type: type 2 Chronic kidney disease stage: stage 2 (mild ) Qualified Code(s): E11.22 - Type 2 diabetes mellitus with diabetic chronic kidney disease; N18.2 - Chronic kidney disease, stage 2 (mild) (8) Acute kidney injury superimposed on chronic kidney disease Code(s): N17.9 - ACUTE KIDNEY FAILURE, UNSPECIFIED; N18.9 - CHRONIC KIDNEY DISEASE, UNSPECIFIED
--- NOTE | 2019-09-25 14:05 | PN ---
Progress Note (short form) - Note Progress Note: Subjective: no fever or chills . Abd discomfort in RLQ is better . Objective: Vital Signs: Last Vital Signs Temp Pulse Resp BP Pulse Ox 97.8 F 83 18 125/65 100 09/25/19 08:13 09/25/19 08:13 09/25/19 09:00 09/25/19 08:13 09/25/19 09:00 Vital Signs - 24 hr 09/24/19 09/24/19 09/24/19 14:00 18:00 21:00 Temperature 98.2 F 98.2 F Pulse Rate 84 86 Respiratory 18 20 Rate Blood Pressure 124/55 L 131/63 O2 Sat by Pulse 100 Oximetry (%) 09/24/19 09/25/19 09/25/19 21:14 02:00 06:53 Temperature 98.2 F 98.6 F 98.6 F Pulse Rate 89 81 84 Respiratory 20 20 20 Rate Blood Pressure 105/80 117/65 117/65 O2 Sat by Pulse Oximetry (%) 09/25/19 09/25/19 08:13 09:00 Temperature 97.8 F Pulse Rate 83 Respiratory 18 18 Rate Blood Pressure 125/65 O2 Sat by Pulse 100 Oximetry (%) Physical Exam: NAD, awake, alert,pleasant MMM CV: RRR, no MRG Lungs: CTAB Abd: soft, TTP in RLQ,no rebound tenderness . no rigidity. no guarding Ext : No edema ASSESSMENT AND PLAN: Pleasant 64 y/o gentleman who has a HTN, HLP, DM,who presented with diarrhea x 1 week and abd pain x 2 days . he was found to have perforated appendicitis 1- Sepsis due to Acute appendicitis with early perforation. - cont IVF - cont zosyn - d/w ID. CT of abd in 1-2 days - NPO 2- MELANIE: due to prerenal azotemia in setting of diarrhea and sepsis. - improved Cr. cont IVF 3- Non anion gap Metabolic acidosis: due to diarrhea and renal failure. Bicard improved to 17 -cont Bicarb with IVF 4- H/o HTN: BP stable off meds. will resume when elevated 5- H/o DM : - NPO for now -loose SSI if needed . sugar on lower side 6- DVT Px : SCds . heparin HLOC Visit type - Emergency Visit Emergency Visit: Yes ED Registration Date: 09/22/19 Care time: The patient presented to the Emergency Department on the above date and was hospitalized for further evaluation of their emergent condition. - New Patient This patient is new to me today: No - Critical Care Critical Care patient: No
[2019-09-25] MEDS ORDERED: PIPERACILLIN/TAZOBACTAM 4.5 GM VIAL IVPB ONE (17:59)
[2019-09-25] MEDS ORDERED: DEXTROSE 5%-WATER 100 ML IVPB ONE (17:59)
[2019-09-25] MEDS: PIPERACILLIN/TAZOB 4.5 GM 4.5 GM in DEXTROSE 5%-WATER 100 ML IVPB SCH (18:01)
--- NOTE | 2019-09-25 18:48 | PN ---
Progress Note, Physician History of Present Illness: Pt seen and examined at bedside. He is tolerating clears. - Current Medication List Current Medications: Active Medications Acetaminophen (Ofirmev Injection -) 1,000 mg IVPB Q6H PRN PRN Reason: PAIN LEVEL 6-10 Last Admin: 09/23/19 17:20 Dose: 1,000 mg Amlodipine Besylate (Norvasc -) 10 mg PO DAILY [facility] Last Admin: 09/25/19 09:07 Dose: Not Given Heparin Sodium (Porcine) (Heparin -) 5,000 unit SQ TID [facility] Last Admin: 09/25/19 14:21 Dose: 5,000 unit Piperacillin Sod/Tazobactam (Sod 4.5 gm/ Dextrose) 100 mls @ 200 mls/hr IVPB Q8H-IV [facility]; Protocol Last Admin: 09/25/19 18:01 Dose: 200 mls/hr Potassium Chloride 20 meq/Sodium Bicarbonate 50 meq/Sodium Chloride 1,060 mls @ 100 mls/hr IV Q8H [facility] Last Admin: 09/25/19 18:33 Dose: 100 mls/hr Insulin Aspart (Novolog Vial Sliding Scale -) 1 vial SQ Q6HPO [facility]; Protocol Last Admin: 09/25/19 18:10 Dose: Not Given - Objective Vital Signs: Vital Signs Temperature 97.6 F 09/25/19 14:00 Pulse Rate 61 09/25/19 14:00 Respiratory Rate 18 09/25/19 14:00 Blood Pressure 136/73 09/25/19 14:00 O2 Sat by Pulse Oximetry (%) 100 09/25/19 09:00 Constitutional: Yes: Calm Eyes: Yes: Conjunctiva Clear HENT: Yes: Atraumatic Neck: Yes: Supple Cardiovascular: Yes: S1, S2 Respiratory: Yes: CTA Bilaterally Gastrointestinal: Yes: Soft Genitourinary: Yes: WNL Edema: No Neurological: Yes: Oriented Psychiatric: Yes: Oriented Labs: CBC, BMP 09/25/19 06:05 09/25/19 06:05 INR, PTT INR 1.36 (0.82-1.09) H 09/22/19 10:15 Problem List - Problems (1) BARBARA (acute kidney injury) Code(s): N17.9 - ACUTE KIDNEY FAILURE, UNSPECIFIED (2) Appendicitis Code(s): K37 - UNSPECIFIED APPENDICITIS Qualifiers: Appendicitis type: unspecified Qualified Code(s): K37 - Unspecified appendicitis Assessment/Plan Current Medications Generic Name Dose Route Start Last Admin Trade Name Teresa PRN Reason Stop Dose Admin Acetaminophen 1,000 mg 09/22/19 17:46 09/23/19 17:20 Ofirmev Injection - IVPB 1,000 mg Q6H PRN Administration PAIN LEVEL 6-10 Amlodipine Besylate 10 mg 09/23/19 17:14 09/25/19 09:07 Norvasc - PO Not Given DAILY [facility] Heparin Sodium (Porcine) 5,000 unit 09/23/19 22:00 09/25/19 14:21 Heparin - SQ 5,000 unit TID [facility] Administration Piperacillin Sod/Tazobactam 100 mls @ 200 mls/hr 09/25/19 18:00 09/25/19 18: 01 Sod 4.5 gm/ Dextrose IVPB 200 mls/hr Q8H-IV [facility] Administration Protocol Potassium Chloride 20 meq/ 1,060 mls @ 100 mls/hr 09/25/19 13:36 09/25/19 18: 33 Sodium Bicarbonate 50 meq/ IV 100 mls/hr Sodium Chloride Q8H [facility] Administration Insulin Aspart 1 vial 09/23/19 12:00 09/25/19 18:10 Novolog Vial Sliding Scale - SQ Not Given Q6HPO [facility] Protocol Impression 1. BARBARA 2. appendicitis 3. acidosis 4. dm 5. htn Plan - renal function improving - change fluids to 1/2 ns - pt tolerating clears - monitor lytes - barbara likely from prerenal disease and GI losses
[2019-09-25] MEDS: SODIUM CHLORIDE 0.45% 1,000 ML with POTASSIUM CHLORIDE 10 MEQ IV SCH (19:48)
[2019-09-26] MEDS ORDERED: DEXTROSE 5%-WATER 100 ML IVPB ONE ×3 (00:49→16:29)
[2019-09-26] MEDS ORDERED: PIPERACILLIN/TAZOBACTAM 4.5 GM VIAL IVPB ONE ×3 (00:49→16:29)
[2019-09-26] MEDS: PIPERACILLIN/TAZOB 4.5 GM 4.5 GM in DEXTROSE 5%-WATER 100 ML IVPB SCH ×3 (01:17→17:19)
[2019-09-26] MEDS: HEPARIN NA (PORCINE) 5,000 UNITS/ML 1ML VIAL SQ SCH ×3 (05:23→22:54)
[2019-09-26] MEDS: INSULIN SLIDING SCALE (NOVOLOG) 1 VIAL SQ SCH ×3 (05:23→17:20)
[2019-09-26 06:57] LABS: BASO % 0.3 % (0-2.0); EOS % 1.4 % (0-4.5); HEMATOCRIT 25.1 % (35.4-49); HEMOGLOBIN 8.7 GM/dL (11.7-16.9); LYMPH % 10.8 % (8-40); MCH 30.9 pg (25.7-33.7); MCHC 34.6 g/dl (32.0-35.9); MEAN CELL VOLUME 89.2 fl (80-96); MEAN PLT VOLUME 8.5 fl (7.5-11.1); MONO % 6.7 % (3.8-10.2); NEUT % 80.8 % (42.8-82.8); PLATELET COUNT 309 K/MM3 (134-434); RBC 2.82 M/mm3 (4.00-5.60); WHITE BLOOD COUNT 16.2 K/mm3 (4.0-10.0)
[2019-09-26 07:15] LABS: BLOOD UREA NITROGEN 16.4 mg/dL (7-18); CALCIUM 7.9 mg/dL (8.5-10.1); CREATININE 1.4 mg/dL (0.55-1.3); POTASSIUM 3.6 mmol/L (3.5-5.1)
[2019-09-26] MEDS ORDERED: PT OWN MED DRAWER 7, Y5N ONE (09:33)
[2019-09-26] MEDS: SODIUM CHLORIDE 0.45% 1,000 ML with POTASSIUM CHLORIDE 10 MEQ IV SCH (10:51)
[2019-09-26] MEDS: amLODIPine BESYLATE 10 MG TABLET (FP) PO SCH (10:51)
--- NOTE | 2019-09-26 12:07 | PN ---
Progress Note, Physician History of Present Illness: Pt seen and examined at bedside. He is awake and alert. He has appetite and is tolerating clears. - Current Medication List Current Medications: Active Medications Acetaminophen (Ofirmev Injection -) 1,000 mg IVPB Q6H PRN PRN Reason: PAIN LEVEL 6-10 Last Admin: 09/23/19 17:20 Dose: 1,000 mg Amlodipine Besylate (Norvasc -) 10 mg PO DAILY [facility] Last Admin: 09/26/19 10:51 Dose: 10 mg Heparin Sodium (Porcine) (Heparin -) 5,000 unit SQ TID [facility] Last Admin: 09/26/19 05:23 Dose: 5,000 unit Piperacillin Sod/Tazobactam (Sod 4.5 gm/ Dextrose) 100 mls @ 200 mls/hr IVPB Q8H-IV [facility]; Protocol Last Admin: 09/26/19 10:51 Dose: 200 mls/hr Potassium Chloride 10 meq/ (Sodium Chloride) 1,005 mls @ 75 mls/hr IV Q13H [facility] Last Admin: 09/26/19 10:51 Dose: 75 mls/hr Insulin Aspart (Novolog Vial Sliding Scale -) 1 vial SQ Q6HPO [facility]; Protocol Last Admin: 09/26/19 12:02 Dose: Not Given - Objective Vital Signs: Vital Signs Temperature 98 F 09/26/19 09:00 Pulse Rate 68 09/26/19 09:00 Respiratory Rate 18 09/26/19 09:00 Blood Pressure 136/77 09/26/19 09:00 O2 Sat by Pulse Oximetry (%) 100 09/25/19 09:00 Constitutional: Yes: Calm Eyes: Yes: Conjunctiva Clear HENT: Yes: Atraumatic Neck: Yes: Supple Cardiovascular: Yes: S1, S2 Respiratory: Yes: CTA Bilaterally Gastrointestinal: Yes: Normal Bowel Sounds, Soft Genitourinary: Yes: WNL Musculoskeletal: Yes: WNL Edema: No Neurological: Yes: Oriented Psychiatric: Yes: Oriented Labs: CBC, BMP 09/26/19 06:15 09/26/19 06:15 INR, PTT INR 1.36 (0.82-1.09) H 09/22/19 10:15 Problem List - Problems (1) MELANIE (acute kidney injury) Code(s): N17.9 - ACUTE KIDNEY FAILURE, UNSPECIFIED (2) Appendicitis Code(s): K37 - UNSPECIFIED APPENDICITIS Qualifiers: Appendicitis type: unspecified Qualified Code(s): K37 - Unspecified appendicitis Assessment/Plan Current Medications Generic Name Dose Route Start Last Admin Trade Name Freq PRN Reason Stop Dose Admin Acetaminophen 1,000 mg 09/22/19 17:46 09/23/19 17:20 Ofirmev Injection - IVPB 1,000 mg Q6H PRN Administration PAIN LEVEL 6-10 Amlodipine Besylate 10 mg 09/23/19 17:14 09/26/19 10:51 Norvasc - PO 10 mg DAILY [facility] Administration Heparin Sodium (Porcine) 5,000 unit 09/23/19 22:00 09/26/19 05:23 Heparin - SQ 5,000 unit TID [facility] Administration Piperacillin Sod/Tazobactam 100 mls @ 200 mls/hr 09/25/19 18:00 09/26/19 10: 51 Sod 4.5 gm/ Dextrose IVPB 200 mls/hr Q8H-IV [facility] Administration Protocol Potassium Chloride 10 meq/ 1,005 mls @ 75 mls/hr 09/25/19 19:00 09/26/19 10: 51 Sodium Chloride IV 75 mls/hr Q13H [facility] Administration Insulin Aspart 1 vial 09/23/19 12:00 09/26/19 12:02 Novolog Vial Sliding Scale - SQ Not Given Q6HPO [facility] Protocol Impression 1. MELANIE 2. appendicitis 3. acidosis 4. dm 5. htn Plan - anesthesiologist/physician improved - cont fluids - encourage po intake - can decrease rate of fluids - melanie likely from prerenal disease and GI losses
--- NOTE | 2019-09-26 12:22 | PN ---
Progress Note (short form) - Note Progress Note: ambulating no abdominal pain on clears +BM Vital Signs Period Temp Pulse Resp BP Sys/Wilkerson Pulse Ox Last 24 Hr 97.6 F-98.8 F 61-84 18-20 116-136/53-91 cor-rrr lungs clear abd soft,nt ext no edema CBC, BMP 09/26/19 06:15 09/26/19 06:15 Microbiology 09/22/19 10:30 Blood - Peripheral Venous Blood Culture - Preliminary NO GROWTH OBTAINED AFTER 96 HOURS, INCUBATION TO CONTINUE FOR 1 DAYS. 09/22/19 10:15 Blood - Peripheral Venous Blood Culture - Preliminary NO GROWTH OBTAINED AFTER 96 HOURS, INCUBATION TO CONTINUE FOR 1 DAYS. 09/22/19 13:30 Stool Salmonella/Shigella Culture - Final NO GROWTH OF SALMONELLA OR SHIGELLA SPECIES OBTAINED 09/22/19 13:30 Stool Campylobacter Culture - Final NO GROWTH OF CAMPYLOBACTER SPECIES OBTAINED 09/22/19 13:30 Stool Yersinia Culture - Final NO GROWTH OF YERSINIA SPECIES OBTAINED 09/22/19 13:30 Stool Vibrio Culture - Final NO GROWTH OF VIBRIO SPECIES OBTAINED 09/22/19 13:30 Stool Escherichia coli 0157 Culture - Final NO GROWTH OF E COLI 0157 OBTAINED 09/22/19 09:50 Urine - Urine Clean Catch Urine Culture - Final NO GROWTH OBTAINED a/p appendicitis- early perforation? r/o RLQ abscess continue zosyn adjust dose for improving renal function leukocytosis trending down slowly repeat ct scan to r/o RLQ abscess IR to drain if abscess is found melanie- improving with hydration- Problem List - Problems (1) Appendicitis Code(s): K37 - UNSPECIFIED APPENDICITIS Qualifiers: Appendicitis type: unspecified Qualified Code(s): K37 - Unspecified appendicitis (2) MELANIE (acute kidney injury) Code(s): N17.9 - ACUTE KIDNEY FAILURE, UNSPECIFIED
[2019-09-26] MEDS ORDERED: SODIUM CHLORIDE 1,000 ML IV SCH (13:30)
--- NOTE | 2019-09-26 15:39 | PN ---
Physical Exam: SUBJECTIVE: Patient seen and examined. He reports some abdominal "discomfort" but otherwise feels better. Diarrhea is less frequent and better formed. He denies fever, chills, nausea, vomiting, chest pain, or shortness of breath. OBJECTIVE: Vital Signs Period Temp Pulse Resp BP Sys/Wilkerson Pulse Ox Last 24 Hr 98 F-98.8 F 68-84 18-20 116-136/53-91 GENERAL: The patient is awake, alert, and fully oriented, in no acute distress. HEAD: Normal with no signs of trauma. EYES: PERRL, extraocular movements intact, conjunctiva clear. ENT: Ears normal, nares patent, moist mucous membranes. NECK: Trachea midline, full range of motion LUNGS: Clear to auscultation bilaterally HEART: Regular rate and rhythm, no murmur ABDOMEN: Soft, mild diffuse tenderness on palpation, non-distended, normoactive bowel sounds, no guarding EXTREMITIES: Warm, well-perfused, no edema. NEUROLOGICAL: Cranial nerves II through XII grossly intact. Normal speech. PSYCH: Normal mood, normal affect. SKIN: Warm, dry, normal turgor Laboratory Results - last 24 hr 09/25/19 09/25/19 09/25/19 18:03 18:04 22:25 WBC RBC Hgb Hct MCV MCH MCHC RDW Plt Count MPV Absolute Neuts (auto) Neutrophils % Lymphocytes % Monocytes % Eosinophils % Basophils % Nucleated RBC % Sodium Potassium Chloride Carbon Dioxide Anion Gap BUN Creatinine Est GFR (CKD-EPI)AfAm Est GFR (CKD-EPI)NonAf POC Glucometer 167 183 96 Random Glucose Calcium 09/26/19 09/26/19 09/26/19 05:19 06:15 06:15 WBC 16.2 H RBC 2.82 L Hgb 8.7 L Hct 25.1 L MCV 89.2 MCH 30.9 MCHC 34.6 RDW 14.0 Plt Count 309 MPV 8.5 Absolute Neuts (auto) 13.1 H Neutrophils % 80.8 Lymphocytes % 10.8 D Monocytes % 6.7 Eosinophils % 1.4 Basophils % 0.3 Nucleated RBC % 0 Sodium 141 Potassium 3.6 Chloride 112 H Carbon Dioxide 21 Anion Gap 8 BUN 16.4 Creatinine 1.4 H Est GFR (CKD-EPI)AfAm 61.97 Est GFR (CKD-EPI)NonAf 53.47 POC Glucometer 118 Random Glucose 106 Calcium 7.9 L 09/26/19 12:02 WBC RBC Hgb Hct MCV MCH MCHC RDW Plt Count MPV Absolute Neuts (auto) Neutrophils % Lymphocytes % Monocytes % Eosinophils % Basophils % Nucleated RBC % Sodium Potassium Chloride Carbon Dioxide Anion Gap BUN Creatinine Est GFR (CKD-EPI)AfAm Est GFR (CKD-EPI)NonAf POC Glucometer 126 Random Glucose Calcium Active Medications Generic Name Dose Route Start Last Admin Trade Name Freq PRN Reason Stop Dose Admin Acetaminophen 1,000 mg 09/22/19 17:46 09/23/19 17:20 Ofirmev Injection - IVPB 1,000 mg Q6H PRN Administration PAIN LEVEL 6-10 Amlodipine Besylate 10 mg 09/23/19 17:14 09/26/19 10:51 Norvasc - PO 10 mg DAILY MIKAYLA Administration Heparin Sodium (Porcine) 5,000 unit 09/23/19 22:00 09/26/19 14:45 Heparin - SQ 5,000 unit TID MIKAYLA Administration Piperacillin Sod/Tazobactam 100 mls @ 200 mls/hr 09/25/19 18:00 09/26/19 10: 51 Sod 4.5 gm/ Dextrose IVPB 200 mls/hr Q8H-IV MIKAYLA Administration Protocol Sodium Chloride 1,000 mls @ 75 mls/hr 09/26/19 13:30 09/26/19 14:45 Normal Saline - IV 75 mls/hr ASDIR MIKAYLA Administration Insulin Aspart 1 vial 09/23/19 12:00 09/26/19 12:02 Novolog Vial Sliding Scale - SQ Not Given Q6HPO MIKAYLA Protocol ASSESSMENT/PLAN: Mr. Underwood is a 64y/o male with HTN and DM2 who presents with abdominal pain and diarrhea. CT showed appendiceal inflammation with evidence of early perforation and appendicolith, as well as diverticulosis but could not r/o diverticulitis. #sepsis 2/2 acute appendicitis with early perforation of appendix -leukocytosis downtrending slowly -clear liquids -IV fluids -Zosyn 4.5g Q8H -CT tomorrow -ID following -surgery following- will have elective appy after acute illness resolves #non-anion gap metabolic acidosis 2/2 infection, improved -NS 75mL/hr #MELANIE, improving -pre-renal likely given diarrhea -continue fluids #HTN -amlodipine 10mg -hold home losartan #DM2 -hold home metformin -SSI -BGMs #hyponatremia, resolved #hypokalemia, resolved NS 75mL/hr monitor Cr, K clears dispo continue abx and IV fluids, CT tomorrow Visit type - Emergency Visit Emergency Visit: Yes ED Registration Date: 09/22/19 Care time: The patient presented to the Emergency Department on the above date and was hospitalized for further evaluation of their emergent condition. - New Patient This patient is new to me today: No - Critical Care Critical Care patient: No - Discharge Referral Referred to [facility] Med [facility] No ATTENDING PHYSICIAN STATEMENT I saw and evaluated the patient. I reviewed the resident's note and discussed the case with the resident. I agree with the resident's findings and plan as documented. SUBJECTIVE: OBJECTIVE: ASSESSMENT AND PLAN:
--- NOTE | 2019-09-26 17:57 | PN ---
Progress Note, Physician History of Present Illness: Patient with perforated appendicitis, being treated with IV fluids and antibiotics, now tolerating clears. He is seen and examined in bed. Reports no pain. Labs show continued slow improvement in wbc, renal function, acidosis ( CO2 now normal 21). Hb stable but anemic. BP 110s-130s systolic, improving. On Zosyn per ID. Renal also following, getting bicarb in fluids. - Current Medication List Current Medications: Active Medications Acetaminophen (Ofirmev Injection -) 1,000 mg IVPB Q6H PRN PRN Reason: PAIN LEVEL 6-10 Last Admin: 09/23/19 17:20 Dose: 1,000 mg Amlodipine Besylate (Norvasc -) 10 mg PO DAILY MIKAYLA Last Admin: 09/26/19 10:51 Dose: 10 mg Heparin Sodium (Porcine) (Heparin -) 5,000 unit SQ TID MIKAYLA Last Admin: 09/26/19 14:45 Dose: 5,000 unit Piperacillin Sod/Tazobactam (Sod 4.5 gm/ Dextrose) 100 mls @ 200 mls/hr IVPB Q8H-IV MIKAYLA; Protocol Last Admin: 09/26/19 17:19 Dose: 200 mls/hr Sodium Chloride (Normal Saline -) 1,000 mls @ 75 mls/hr IV ASDIR MIKAYLA Last Admin: 09/26/19 14:45 Dose: 75 mls/hr Insulin Aspart (Novolog Vial Sliding Scale -) 1 vial SQ Q6HPO MIKAYLA; Protocol Last Admin: 09/26/19 17:20 Dose: Not Given - Objective Vital Signs: Vital Signs Temperature 98 F 09/26/19 14:15 Pulse Rate 65 09/26/19 14:15 Respiratory Rate 20 09/26/19 14:15 Blood Pressure 112/65 09/26/19 14:15 O2 Sat by Pulse Oximetry (%) 98 09/26/19 09:00 Constitutional: Yes: Well Nourished, No Distress, Calm Eyes: Yes: Conjunctiva Clear, EOM Intact HENT: Yes: Atraumatic, Normocephalic Gastrointestinal: Yes: Soft, Abdomen, Obese. No: Tenderness, Tenderness, Epigastrium Extremities: No: Cool, Cyanosis Integumentary: No: Jaundice, Rash Neurological: Yes: Alert, Oriented Labs: CBC, BMP 09/26/19 06:15 09/26/19 06:15 CMP Sodium 141 mmol/L (136-145) 09/26/19 06:15 Potassium 3.6 mmol/L (3.5-5.1) 09/26/19 06:15 Chloride 112 mmol/L (98-107) H 09/26/19 06:15 Carbon Dioxide 21 mmol/L (21-32) 09/26/19 06:15 Anion Gap 8 MMOL/L (8-16) 09/26/19 06:15 BUN 16.4 mg/dL (7-18) 09/26/19 06:15 Creatinine 1.4 mg/dL (0.55-1.3) H 09/26/19 06:15 Est GFR (CKD-EPI)AfAm 61.97 09/26/19 06:15 Est GFR (CKD-EPI)NonAf 53.47 09/26/19 06:15 POC Glucometer 101 UNITS (80-120) 09/26/19 16:49 Random Glucose 106 mg/dL (74-106) 09/26/19 06:15 Lactic Acid 0.8 mmol/L (0.4-2.0) 09/22/19 13:25 Calcium 7.9 mg/dL (8.5-10.1) L 09/26/19 06:15 Phosphorus 2.5 mg/dL (2.5-4.9) 09/25/19 06:05 Magnesium 1.6 mg/dL (1.8-2.4) L 09/25/19 06:05 Total Bilirubin 0.3 mg/dL (0.2-1) 09/24/19 06:25 AST 14 U/L (15-37) L 09/24/19 06:25 ALT 14 U/L (13-61) 09/24/19 06:25 Alkaline Phosphatase 60 U/L (45-117) 09/24/19 06:25 Troponin I 0.03 ng/ml (0.00-0.05) 09/22/19 10:15 C-Reactive Protein 12.6 MG/DL (0.00-0.3) H 09/25/19 06:05 Total Protein 5.6 g/dl (6.4-8.2) L 09/24/19 06:25 Albumin 2.4 g/dl (3.4-5.0) L 09/24/19 06:25 Problem List - Problems (1) Acute appendicitis with perforation and localized peritonitis, without gangrene Assessment/Plan: early perforated appendicitis with appendicolith but no abscess MELANIE on CKD improving pain and tenderness essentially resolved tolerating clear liquids continue IV antibiotics - Zosyn per ID pain meds prn - tylenol cultures negative trend labs daily replete lytes prn strict I/O's - monitor UOP continue conservative treatment - progressing slowly ultimately anticipate completing abx course orally on d/c home, with colonoscopy in 6-8 weeks after recovery, followed by interval appendectomy will repeat CT tomorrow am to eval for drainable collection, +po but not iv contrast following with you discussed with Dr. Fuller Code(s): K35.32 - ACUTE APPENDICITIS WITH PERF AND LOC PERITONITIS, W/O ABSCS Qualifiers: Appendicitis abscess presence: without abscess Qualified Code(s): K35.32 - Acute appendicitis with perforation and localized peritonitis, without abscess (2) RLQ abdominal pain Code(s): R10.31 - RIGHT LOWER QUADRANT PAIN (3) Diarrhea Assessment/Plan: resolved Code(s): R19.7 - DIARRHEA, UNSPECIFIED Qualifiers: Diarrhea type: unspecified type Qualified Code(s): R19.7 - Diarrhea, unspecified (4) Dehydration Code(s): E86.0 - DEHYDRATION (5) Hypertension Code(s): I10 - ESSENTIAL (PRIMARY) HYPERTENSION Qualifiers: Hypertension type: essential hypertension Qualified Code(s): I10 - Essential (primary) hypertension (6) Hyperlipidemia Code(s): E78.5 - HYPERLIPIDEMIA, UNSPECIFIED Qualifiers: Hyperlipidemia type: unspecified Qualified Code(s): E78.5 - Hyperlipidemia , unspecified (7) Diabetes mellitus with chronic kidney disease, without long-term current use of insulin Code(s): E11.22 - TYPE 2 DIABETES MELLITUS W DIABETIC CHRONIC KIDNEY DISEASE Qualifiers: Diabetes mellitus type: type 2 Chronic kidney disease stage: stage 2 (mild ) Qualified Code(s): E11.22 - Type 2 diabetes mellitus with diabetic chronic kidney disease; N18.2 - Chronic kidney disease, stage 2 (mild) (8) Acute kidney injury superimposed on chronic kidney disease Code(s): N17.9 - ACUTE KIDNEY FAILURE, UNSPECIFIED; N18.9 - CHRONIC KIDNEY DISEASE, UNSPECIFIED
--- NOTE | 2019-09-26 19:18 | PN ---
Teaching Attending Note Name of Resident: Cara Armendariz ATTENDING PHYSICIAN STATEMENT I saw and evaluated the patient. I reviewed the resident's note and discussed the case with the resident. I agree with the resident's findings and plan as documented. SUBJECTIVE: No fever or chills. No abd pain , no N/V OBJECTIVE: NAD, awake MMM CV: RRR, no MRG Lungs: CTAB Abd: soft, minimal discomfort in RLQ. Nl BS Ext : No edema ASSESSMENT AND PLAN: Pleasant 64 y/o gentleman who has a HTN, HLP, DM,who presented with diarrhea x 1 week and abd pain x 2 days . he was found to have perforated appendicitis 1- Sepsis due to Acute appendicitis with possible early perforation. - change IVF to NS. dc bicarb - cont zosyn - CT tomorrow . r/o abscess formation - cont clears 2- MELANIE: - improved Cr. cont IVF 3- Non anion gap Metabolic acidosis: due to diarrhea and renal failure. dc bicarb and cont NS 4- H/o HTN: BP stable off meds. will resume when elevated 5- H/o DM : -change ssi to AC 6- DVT Px : SCds . heparin
[2019-09-27] MEDS ORDERED: PIPERACILLIN/TAZOBACTAM 4.5 GM VIAL IVPB ONE ×3 (02:48→17:22)
[2019-09-27] MEDS ORDERED: DEXTROSE 5%-WATER 100 ML IVPB ONE ×3 (02:49→17:22)
[2019-09-27] MEDS: PIPERACILLIN/TAZOB 4.5 GM 4.5 GM in DEXTROSE 5%-WATER 100 ML IVPB SCH ×3 (02:52→17:31)
[2019-09-27] MEDS: HEPARIN NA (PORCINE) 5,000 UNITS/ML 1ML VIAL SQ SCH ×3 (05:33→21:40)
[2019-09-27] MEDS: INSULIN SLIDING SCALE (NOVOLOG) 1 VIAL SQ SCH ×4 (06:02→21:41)
[2019-09-27 06:44] LABS: BASO % 1.2 % (0-2.0); EOS % 1.7 % (0-4.5); HEMATOCRIT 25.5 % (35.4-49); HEMOGLOBIN 8.6 GM/dL (11.7-16.9); LYMPH % 11.9 % (8-40); MCH 30.7 pg (25.7-33.7); MCHC 33.9 g/dl (32.0-35.9); MEAN CELL VOLUME 90.5 fl (80-96); MEAN PLT VOLUME 8.7 fl (7.5-11.1); MONO % 7.1 % (3.8-10.2); NEUT % 78.1 % (42.8-82.8); PLATELET COUNT 310 K/MM3 (134-434); RBC 2.82 M/mm3 (4.00-5.60); RDW 13.8 % (11.9-15.9); WHITE BLOOD COUNT 15.1 K/mm3 (4.0-10.0)
[2019-09-27 07:15] LABS: ALBUMIN 2.1 g/dl (3.4-5.0); BILIRUBIN,TOTAL 0.4 mg/dL (0.2-1); BLOOD UREA NITROGEN 9.9 mg/dL (7-18); CALCIUM 7.7 mg/dL (8.5-10.1); CREATININE 1.4 mg/dL (0.55-1.3); MAGNESIUM 1.4 mg/dL (1.8-2.4); POTASSIUM 3.4 mmol/L (3.5-5.1); TOT PROT 5.5 g/dl (6.4-8.2)
[2019-09-27] MEDS ORDERED: POTASSIUM CHLORIDE TABS 20 MEQ TABLET.ER (FP) PO ONE (07:53)
[2019-09-27] MEDS: amLODIPine BESYLATE 10 MG TABLET (FP) PO SCH (10:40)
[2019-09-27] MEDS ORDERED: MAGNESIUM SULF 50% (8.12 MEQ/2 ML-1 GM VIAL) IVPB ONE (11:50)
[2019-09-27] MEDS: SODIUM CHLORIDE 0.45%/POT 20 MEQ/1,000 ML INFUS.BAG IV SCH (12:25)
--- NOTE | 2019-09-27 12:48 | PN ---
Progress Note, Physician History of Present Illness: Patient with perforated appendicitis, being treated with IV fluids and antibiotics, tolerated clears. He is seen and examined in bed. Reports no pain. Labs have shown slow improvement in wbc, renal function; acidosis resolved. Hb stable but anemic in 8's. BPs more normal. On Zosyn per ID. Renal also following. This am, K, Mag low, had some oral potassium this am. Had CT repeated this am, shows ill-defined, collection in RLQ consistent with abscess from perforated appendicitis. Difficult to tell if accessible to IR - left message for Dr. Patterson. - Current Medication List Current Medications: Active Medications Acetaminophen (Ofirmev Injection -) 1,000 mg IVPB Q6H PRN PRN Reason: PAIN LEVEL 6-10 Last Admin: 09/23/19 17:20 Dose: 1,000 mg Amlodipine Besylate (Norvasc -) 10 mg PO DAILY [facility] Last Admin: 09/27/19 10:40 Dose: 10 mg Heparin Sodium (Porcine) (Heparin -) 5,000 unit SQ TID MIKAYLA Last Admin: 09/27/19 05:33 Dose: 5,000 unit Piperacillin Sod/Tazobactam (Sod 4.5 gm/ Dextrose) 100 mls @ 200 mls/hr IVPB Q8H-IV MIKAYLA; Protocol Last Admin: 09/27/19 10:40 Dose: 200 mls/hr Potassium Chloride/Sodium Chloride (1/2ns+20meq Kcl) 20 meq in 1,000 mls @ 75 mls/hr IV ASDIR [facility] Last Admin: 09/27/19 12:25 Dose: 75 mls/hr Insulin Aspart (Novolog Vial Sliding Scale -) 1 vial SQ TIDAC [facility]; Protocol Last Admin: 09/27/19 12:24 Dose: Not Given - Objective Vital Signs: Vital Signs Temperature 98.2 F 09/27/19 09:00 Pulse Rate 75 09/27/19 09:00 Respiratory Rate 20 09/27/19 09:00 Blood Pressure 144/73 09/27/19 09:00 O2 Sat by Pulse Oximetry (%) 93 L 09/27/19 09:00 Constitutional: Yes: Well Nourished, No Distress, Calm Eyes: Yes: Conjunctiva Clear, EOM Intact HENT: Yes: Atraumatic, Normocephalic Gastrointestinal: Yes: Soft. No: Tenderness (no RLQ tenderness even to deep palpation), Tenderness, Epigastrium Genitourinary: No: CVA Tenderness - Left, CVA Tenderness - Right Extremities: No: Cool, Cyanosis Integumentary: No: Jaundice, Rash Neurological: Yes: Alert, Oriented. No: Unsteady Gait Labs: CBC, BMP 09/27/19 05:45 09/27/19 05:45 CMP Sodium 141 mmol/L (136-145) 09/27/19 05:45 Potassium 3.4 mmol/L (3.5-5.1) L 09/27/19 05:45 Chloride 109 mmol/L (98-107) H 09/27/19 05:45 Carbon Dioxide 22 mmol/L (21-32) 09/27/19 05:45 Anion Gap 10 MMOL/L (8-16) 09/27/19 05:45 BUN 9.9 mg/dL (7-18) 09/27/19 05:45 Creatinine 1.4 mg/dL (0.55-1.3) H 09/27/19 05:45 Est GFR (CKD-EPI)AfAm 61.97 09/27/19 05:45 Est GFR (CKD-EPI)NonAf 53.47 09/27/19 05:45 POC Glucometer 110 UNITS (80-120) 09/27/19 12:10 Random Glucose 96 mg/dL (74-106) 09/27/19 05:45 Lactic Acid 0.8 mmol/L (0.4-2.0) 09/22/19 13:25 Calcium 7.7 mg/dL (8.5-10.1) L 09/27/19 05:45 Phosphorus 2.5 mg/dL (2.5-4.9) 09/25/19 06:05 Magnesium 1.4 mg/dL (1.8-2.4) L 09/27/19 05:45 Total Bilirubin 0.4 mg/dL (0.2-1) 09/27/19 05:45 AST 13 U/L (15-37) L 09/27/19 05:45 ALT 15 U/L (13-61) 09/27/19 05:45 Alkaline Phosphatase 49 U/L (45-117) 09/27/19 05:45 Troponin I 0.03 ng/ml (0.00-0.05) 09/22/19 10:15 C-Reactive Protein 12.6 MG/DL (0.00-0.3) H 09/25/19 06:05 Total Protein 5.5 g/dl (6.4-8.2) L 09/27/19 05:45 Albumin 2.1 g/dl (3.4-5.0) L 09/27/19 05:45 creatinine at baseline wbc down a little more repleting lytes, fluids changed back to 1/2NS + 20KCl - ....Imaging Cat Scan: Report Reviewed, Image Reviewed Problem List - Problems (1) Acute appendicitis with perforation and localized peritonitis, without gangrene Assessment/Plan: perforated appendicitis with appendicolith developing abscess on CT today will discuss with IR whether accessible for drainage no pain or tenderness was tolerating clears continue IV antibiotics - Zosyn per ID replete lytes prn fluids with K+ in them strict I/O's - monitor UOP anticipate diarrhea over next few days after oral contrast following with you per IR - not drainable at this time will resume diabetic diet and monitor for tolerance discussed with Dr. Clark - will need likely PICC and completion of abx by IV might consider rescanning in few days again? discussed with Dr. Fuller and Dr. Styles Problems reviewed: Yes Code(s): K35.32 - ACUTE APPENDICITIS WITH PERF AND LOC PERITONITIS, W/O ABSCS Qualifiers: Appendicitis abscess presence: without abscess Qualified Code(s): K35.32 - Acute appendicitis with perforation and localized peritonitis, without abscess (2) Dehydration Assessment/Plan: resolved Code(s): E86.0 - DEHYDRATION (3) Hypertension Code(s): I10 - ESSENTIAL (PRIMARY) HYPERTENSION Qualifiers: Hypertension type: essential hypertension Qualified Code(s): I10 - Essential (primary) hypertension (4) Hyperlipidemia Code(s): E78.5 - HYPERLIPIDEMIA, UNSPECIFIED Qualifiers: Hyperlipidemia type: unspecified Qualified Code(s): E78.5 - Hyperlipidemia , unspecified (5) Diabetes mellitus with chronic kidney disease, without long-term current use of insulin Code(s): E11.22 - TYPE 2 DIABETES MELLITUS W DIABETIC CHRONIC KIDNEY DISEASE Qualifiers: Diabetes mellitus type: type 2 Chronic kidney disease stage: stage 2 (mild ) Qualified Code(s): E11.22 - Type 2 diabetes mellitus with diabetic chronic kidney disease; N18.2 - Chronic kidney disease, stage 2 (mild) (6) Acute kidney injury superimposed on chronic kidney disease Assessment/Plan: creatinine back at baseline acidosis resolved Code(s): N17.9 - ACUTE KIDNEY FAILURE, UNSPECIFIED; N18.9 - CHRONIC KIDNEY DISEASE, UNSPECIFIED
--- NOTE | 2019-09-27 13:17 | PN ---
Physical Exam: SUBJECTIVE: Patient seen and examined resting in bed. He offers no complaints today. Overnight there were no new events, he was kept NPO for CT ab/pelv to assess for abscess/need for drainage of appendix. OBJECTIVE: Vital Signs Period Temp Pulse Resp BP Sys/Wilkerson Pulse Ox Last 24 Hr 97.5 F-98.2 F 65-82 18-20 112-144/47-82 93-93 GENERAL: AOx3, in no acute distress. HEAD: NCAT EYES: KANDICE, EOMI, conjunctiva clear. ENT: Ears normal, nares patent, oropharynx clear without exudates. Moist mucous membranes. NECK: Normal range of motion, supple without lymphadenopathy, JVD, or masses. LUNGS: CTAB. No wheezes, and no crackles. No accessory muscle use. HEART: RRR s1 s2 ABDOMEN: Soft, BS present in all 4 quadrants, non-distended, no JVD, MUSCULOSKELETAL: No bony deformities or tenderness. No CVA tenderness. UPPER EXTREMITIES: 2+ pulses, warm, well-perfused. No cyanosis. No clubbing. No peripheral edema. LOWER EXTREMITIES: 2+ pulses, warm, well-perfused. No calf tenderness. No peripheral edema. NEUROLOGICAL: No focal deficits. Cranial nerves II-XII intact. Normal speech. Gait not appreciated. PSYCHIATRIC: Cooperative. Good eye contact. Appropriate mood and affect. SKIN: Warm, dry, normal turgor, no rashes or lesions noted, normal capillary refill. Laboratory Results - last 24 hr 09/26/19 09/26/19 09/27/19 16:49 21:17 05:45 WBC RBC Hgb Hct MCV MCH MCHC RDW Plt Count MPV Absolute Neuts (auto) Neutrophils % Lymphocytes % Monocytes % Eosinophils % Basophils % Nucleated RBC % Sodium 141 Potassium 3.4 L Chloride 109 H Carbon Dioxide 22 Anion Gap 10 BUN 9.9 Creatinine 1.4 H Est GFR (CKD-EPI)AfAm 61.97 Est GFR (CKD-EPI)NonAf 53.47 POC Glucometer 101 114 Random Glucose 96 Calcium 7.7 L Magnesium 1.4 L Total Bilirubin 0.4 AST 13 L ALT 15 Alkaline Phosphatase 49 Total Protein 5.5 L Albumin 2.1 L 09/27/19 09/27/19 09/27/19 05:45 05:59 12:10 WBC 15.1 H RBC 2.82 L Hgb 8.6 L Hct 25.5 L MCV 90.5 MCH 30.7 MCHC 33.9 RDW 13.8 Plt Count 310 MPV 8.7 Absolute Neuts (auto) 11.8 H Neutrophils % 78.1 Lymphocytes % 11.9 Monocytes % 7.1 Eosinophils % 1.7 Basophils % 1.2 D Nucleated RBC % 0 Sodium Potassium Chloride Carbon Dioxide Anion Gap BUN Creatinine Est GFR (CKD-EPI)AfAm Est GFR (CKD-EPI)NonAf POC Glucometer 94 110 Random Glucose Calcium Magnesium Total Bilirubin AST ALT Alkaline Phosphatase Total Protein Albumin Active Medications Acetaminophen (Ofirmev Injection -) 1,000 mg IVPB Q6H PRN PRN Reason: PAIN LEVEL 6-10 Last Admin: 09/23/19 17:20 Dose: 1,000 mg Amlodipine Besylate (Norvasc -) 10 mg PO DAILY [facility] Last Admin: 09/27/19 10:40 Dose: 10 mg Heparin Sodium (Porcine) (Heparin -) 5,000 unit SQ TID MIKAYLA Last Admin: 09/27/19 05:33 Dose: 5,000 unit Piperacillin Sod/Tazobactam (Sod 4.5 gm/ Dextrose) 100 mls @ 200 mls/hr IVPB Q8H-IV MIKAYLA; Protocol Last Admin: 09/27/19 10:40 Dose: 200 mls/hr Potassium Chloride/Sodium Chloride (1/2ns+20meq Kcl) 20 meq in 1,000 mls @ 75 mls/hr IV ASDIR MIKAYLA Last Admin: 09/27/19 12:25 Dose: 75 mls/hr Insulin Aspart (Novolog Vial Sliding Scale -) 1 vial SQ TIDAC [facility]AYLA; Protocol Last Admin: 09/27/19 12:24 Dose: Not Given ASSESSMENT/PLAN: 64 y/o male PMH HTN and DM c/o abdominal pain and diarrhea, admitted for acute appendicitis. Pt initially managed on abx and hydration. Abdominal/pelv CT demonstrates ill-defined collection in RLQ consistent with abscess from perforated appendicitis. # Appendicitis with abscess formation - IVF - Zosyn 4.5 g IV q8h day 3 - Follow gen surg and IR recommendations regarding surgical intervention vs drainage # Normocytic anemia - Likely 2/2 dilution; high vol of fluids provided for care of appendicitis - Anemia work-up: serum iron, TIBC, ferritin, retic., FOBT, b12 and folate levels # Hypokalemia - Repleted with kdur 40 meq PO once and supplemented 1/2 NS # MELANIE on CKD - Likely 2/2 prerenal disease and GI losses - Improving - Cont. to follow BMP # Non anion gap metabolic acidosis - Now resolved - Etiology likely diarrhea and renal failure. - Cont. to monitor bicarb # F/E/N - 1/2 NS - Cont. to monitor - Trial of DM diet # DVT prophylaxis - SCD # Disposition - Full code Immanuel Styles MD Visit type - Emergency Visit Emergency Visit: No - New Patient This patient is new to me today: Yes Date on this admission: 09/27/19 - Critical Care Critical Care patient: No ATTENDING PHYSICIAN STATEMENT I saw and evaluated the patient. I reviewed the resident's note and discussed the case with the resident. I agree with the resident's findings and plan as documented. SUBJECTIVE: OBJECTIVE: ASSESSMENT AND PLAN:
--- NOTE | 2019-09-27 13:53 | PN ---
Progress Note, Physician History of Present Illness: Pt seen and examined at bedside. He is awake and alert. He denies shortness of breath. - Current Medication List Current Medications: Active Medications Acetaminophen (Ofirmev Injection -) 1,000 mg IVPB Q6H PRN PRN Reason: PAIN LEVEL 6-10 Last Admin: 09/23/19 17:20 Dose: 1,000 mg Amlodipine Besylate (Norvasc -) 10 mg PO DAILY MIKAYLA Last Admin: 09/27/19 10:40 Dose: 10 mg Heparin Sodium (Porcine) (Heparin -) 5,000 unit SQ TID MIKAYLA Last Admin: 09/27/19 05:33 Dose: 5,000 unit Piperacillin Sod/Tazobactam (Sod 4.5 gm/ Dextrose) 100 mls @ 200 mls/hr IVPB Q8H-IV MIKAYLA; Protocol Last Admin: 09/27/19 10:40 Dose: 200 mls/hr Potassium Chloride/Sodium Chloride (1/2ns+20meq Kcl) 20 meq in 1,000 mls @ 75 mls/hr IV ASDIR MIKAYLA Last Admin: 09/27/19 12:25 Dose: 75 mls/hr Insulin Aspart (Novolog Vial Sliding Scale -) 1 vial SQ TIDAC MIKAYLA; Protocol Last Admin: 09/27/19 12:24 Dose: Not Given - Objective Vital Signs: Vital Signs Temperature 98.2 F 09/27/19 09:00 Pulse Rate 75 09/27/19 09:00 Respiratory Rate 20 09/27/19 09:00 Blood Pressure 144/73 09/27/19 09:00 O2 Sat by Pulse Oximetry (%) 93 L 09/27/19 09:00 Constitutional: Yes: Calm Eyes: Yes: Conjunctiva Clear HENT: Yes: Atraumatic Cardiovascular: Yes: S1, S2 Respiratory: Yes: CTA Bilaterally Gastrointestinal: Yes: Soft Genitourinary: Yes: WNL Musculoskeletal: Yes: WNL Edema: No Neurological: Yes: Oriented Psychiatric: Yes: Oriented Labs: CBC, BMP 09/27/19 05:45 09/27/19 05:45 INR, PTT INR 1.36 (0.82-1.09) H 09/22/19 10:15 Problem List - Problems (1) MELANIE (acute kidney injury) Code(s): N17.9 - ACUTE KIDNEY FAILURE, UNSPECIFIED (2) Appendicitis Code(s): K37 - UNSPECIFIED APPENDICITIS Qualifiers: Appendicitis type: unspecified Qualified Code(s): K37 - Unspecified appendicitis Assessment/Plan Current Medications Generic Name Dose Route Start Last Admin Trade Name Freq PRN Reason Stop Dose Admin Acetaminophen 1,000 mg 09/22/19 17:46 09/23/19 17:20 Ofirmev Injection - IVPB 1,000 mg Q6H PRN Administration PAIN LEVEL 6-10 Amlodipine Besylate 10 mg 09/23/19 17:14 09/27/19 10:40 Norvasc - PO 10 mg DAILY MIKAYLA Administration Heparin Sodium (Porcine) 5,000 unit 09/23/19 22:00 09/27/19 05:33 Heparin - SQ 5,000 unit TID MIKAYLA Administration Piperacillin Sod/Tazobactam 100 mls @ 200 mls/hr 09/25/19 18:00 09/27/19 10: 40 Sod 4.5 gm/ Dextrose IVPB 200 mls/hr Q8H-IV MIKAYLA Administration Protocol Potassium Chloride/Sodium Chloride 20 meq in 1,000 mls @ 75 mls/hr 09/27/19 12 :00 09/27/19 12:25 1/2ns+20meq Kcl IV 75 mls/hr ASDIR MIKAYLA Administration Insulin Aspart 1 vial 09/27/19 07:00 09/27/19 12:24 Novolog Vial Sliding Scale - SQ Not Given TIDAC MIKAYLA Protocol Impression 1. MELANIE 2. appendicitis 3. acidosis 4. dm 5. htn Plan - cont fluids - replace potassium - replace mag - monitor renal function - melanie likely from prerenal disease and GI losses
[2019-09-27] MEDS ORDERED: MAGNESIUM OXIDE 400 MG TABLET (FP) PO ONE (14:54)
--- NOTE | 2019-09-27 15:38 | PN ---
Teaching Attending Note Name of Resident: Immanuel Styles ATTENDING PHYSICIAN STATEMENT I saw and evaluated the patient. I reviewed the resident's note and discussed the case with the resident. I agree with the resident's findings and plan as documented. SUBJECTIVE: No fever or chills. No pain in abd . diarrhea improved . stool is formed now OBJECTIVE: NAD, awake MMM CV: RRR, no MRG Lungs: CTAB Abd: soft, minimal discomfort in RLQ. Nl BS Ext : No edema ASSESSMENT AND PLAN: Pleasant 64 y/o gentleman who has a HTN, HLP, DM,who presented with diarrhea x 1 week and abd pain x 2 days . he was found to have perforated appendicitis 1- Sepsis due to Acute appendicitis with possible early perforation and abscess formation. - Ct reviewed. - cont IVF - cont zosyn - case was d/w Dr. duff who d/w IR. collection is not drainable at this point. - Possible plan for IV Abx with repeat imaging in near future. 2- MELANIE: - improved Cr. cont IVF 3- Non anion gap Metabolic acidosis: due to diarrhea and renal failure. resolved. Monitor bicarb 4- H/o HTN: BP stable off meds. will resume when elevated 5- H/o DM : cont SSI 6- DVT Px: SCDs . heparin SQ
[2019-09-27] MEDS ORDERED: ACETAMINOPHEN 325 MG TABLET (FP) PO PRN (15:52)
--- NOTE | 2019-09-27 16:51 | PN ---
Progress Note (short form) - Note Progress Note: feels well no pain Vital Signs Period Temp Pulse Resp BP Sys/Wilkerson Pulse Ox Last 24 Hr 97.5 F-98.4 F 63-82 18-20 112-144/47-82 93-93 cor-rrr lungs clear abd soft,nt ext jil irving ct scan noted CBC, BMP 09/27/19 05:45 09/27/19 05:45 a/p appendicitis- to d/w IR whether drainage is possible continue zosyn leukocytosis trending down slowly d/w dr duff melanie- improving with hydration- Problem List - Problems (1) Appendicitis Code(s): K37 - UNSPECIFIED APPENDICITIS Qualifiers: Appendicitis type: unspecified Qualified Code(s): K37 - Unspecified appendicitis (2) MELANIE (acute kidney injury) Code(s): N17.9 - ACUTE KIDNEY FAILURE, UNSPECIFIED
[2019-09-28] MEDS ORDERED: PIPERACILLIN/TAZOBACTAM 4.5 GM VIAL IVPB ONE ×3 (01:22→16:40)
[2019-09-28] MEDS ORDERED: DEXTROSE 5%-WATER 100 ML IVPB ONE ×3 (01:22→16:40)
[2019-09-28] MEDS: PIPERACILLIN/TAZOB 4.5 GM 4.5 GM in DEXTROSE 5%-WATER 100 ML IVPB SCH ×3 (01:31→17:03)
[2019-09-28] MEDS: HEPARIN NA (PORCINE) 5,000 UNITS/ML 1ML VIAL SQ SCH ×3 (05:56→23:08)
[2019-09-28] MEDS: INSULIN SLIDING SCALE (NOVOLOG) 1 VIAL SQ SCH ×4 (06:00→23:08)
[2019-09-28 06:38] LABS: HEMATOCRIT 25.9 % (35.4-49); HEMOGLOBIN 8.9 GM/dL (11.7-16.9); MCHC 34.5 g/dl (32.0-35.9); MEAN CELL VOLUME 89.7 fl (80-96); MEAN PLT VOLUME 8.8 fl (7.5-11.1); PLATELET COUNT 339 K/MM3 (134-434); RBC 2.89 M/mm3 (4.00-5.60); RDW 13.7 % (11.9-15.9); WHITE BLOOD COUNT 14.6 K/mm3 (4.0-10.0)
[2019-09-28 07:30] LABS: BLOOD UREA NITROGEN 8.5 mg/dL (7-18); CALCIUM 8.3 mg/dL (8.5-10.1); CREATININE 1.3 mg/dL (0.55-1.3); MAGNESIUM 1.6 mg/dL (1.8-2.4); PHOSPHOROUS 2.5 mg/dL (2.5-4.9)
[2019-09-28] MEDS ORDERED: MAGNESIUM SULF 50% (8.12 MEQ/2 ML-1 GM VIAL) IVPB ONE (08:15)
--- NOTE | 2019-09-28 08:56 | PN ---
Teaching Attending Note Name of Resident: Immanuel Styles ATTENDING PHYSICIAN STATEMENT I saw and evaluated the patient. I reviewed the resident's note and discussed the case with the resident. I agree with the resident's findings and plan as documented. SUBJECTIVE: Patient is feeling better, has no further pain. No nausea or vomiting. No fever or chills. Vital Signs Temperature 99.1 F 09/28/19 05:00 Pulse Rate 74 09/28/19 05:00 Respiratory Rate 20 09/28/19 05:00 Blood Pressure 133/72 09/28/19 05:00 O2 Sat by Pulse Oximetry (%) 96 09/27/19 20:39 GENERAL: The patient is awake, alert, and fully oriented, in no acute distress. HEAD: Normal with no signs of trauma. EYES: PERRL, extraocular movements intact, sclera anicteric, conjunctiva clear. ENT: Ears normal, oropharynx clear without exudates, moist mucous membranes. NECK: Trachea midline, full range of motion, supple. LUNGS: Breath sounds equal, clear to auscultation bilaterally, no wheezes, no crackles, no accessory muscle use. HEART: Regular rate and rhythm, S1, S2 without murmur, rub or gallop. ABDOMEN: Soft, NT, ND, normoactive bowel sounds, no guarding, no rebound, no hepatosplenomegaly, no masses. EXTREMITIES: 2+ pulses, warm, well-perfused, no edema. NEUROLOGICAL: Cranial nerves II through XII grossly intact. Normal speech, gait not observed. PSYCH: Normal mood, normal affect. SKIN: Warm, dry, normal turgor, no rashes or lesions noted CBCD WBC 14.6 K/mm3 (4.0-10.0) H 09/28/19 05:34 RBC 2.89 M/mm3 (4.00-5.60) L 09/28/19 05:34 Hgb 8.9 GM/dL (11.7-16.9) L 09/28/19 05:34 Hct 25.9 % (35.4-49) L 09/28/19 05:34 MCV 89.7 fl (80-96) 09/28/19 05:34 MCHC 34.5 g/dl (32.0-35.9) 09/28/19 05:34 RDW 13.7 % (11.9-15.9) 09/28/19 05:34 Plt Count 339 K/MM3 (134-434) 09/28/19 05:34 MPV 8.8 fl (7.5-11.1) 09/28/19 05:34 CMP Sodium 139 mmol/L (136-145) 09/28/19 05:39 Potassium 4.0 mmol/L (3.5-5.1) 09/28/19 05:39 Chloride 108 mmol/L (98-107) H 09/28/19 05:39 Carbon Dioxide 21 mmol/L (21-32) 09/28/19 05:39 Anion Gap 10 MMOL/L (8-16) 09/28/19 05:39 BUN 8.5 mg/dL (7-18) 09/28/19 05:39 Creatinine 1.3 mg/dL (0.55-1.3) 09/28/19 05:39 Random Glucose 86 mg/dL (74-106) 09/28/19 05:39 Calcium 8.3 mg/dL (8.5-10.1) L 09/28/19 05:39 Total Bilirubin 0.4 mg/dL (0.2-1) 09/27/19 05:45 AST 13 U/L (15-37) L 09/27/19 05:45 ALT 15 U/L (13-61) 09/27/19 05:45 Alkaline Phosphatase 49 U/L (45-117) 09/27/19 05:45 Total Protein 5.5 g/dl (6.4-8.2) L 09/27/19 05:45 Albumin 2.1 g/dl (3.4-5.0) L 09/27/19 05:45 CARDIAC ENZYMES Troponin I 0.03 ng/ml (0.00-0.05) 09/22/19 10:15 Current Medications Generic Name Dose Route Start Last Admin Trade Name Freq PRN Reason Stop Dose Admin Acetaminophen 650 mg 09/27/19 15:52 Tylenol - PO Q6H PRN Pain or fever Amlodipine Besylate 10 mg 09/23/19 17:14 09/27/19 10:40 Norvasc - PO 10 mg DAILY MIKAYLA Administration Heparin Sodium (Porcine) 5,000 unit 09/23/19 22:00 09/28/19 05:56 Heparin - SQ 5,000 unit TID MIKAYLA Administration Piperacillin Sod/Tazobactam 100 mls @ 200 mls/hr 09/25/19 18:00 09/28/19 01: 31 Sod 4.5 gm/ Dextrose IVPB 200 mls/hr Q8H-IV MIKAYLA Administration Protocol Potassium Chloride/Sodium Chloride 20 meq in 1,000 mls @ 75 mls/hr 09/27/19 12 :00 09/27/19 12:25 1/2ns+20meq Kcl IV 75 mls/hr ASDIR MIKAYLA Administration Insulin Aspart 1 vial 09/27/19 16:30 09/28/19 06:00 Novolog Vial Sliding Scale - SQ Not Given ACHS MIKAYLA Protocol Magnesium Oxide 400 mg 09/28/19 10:00 Mag-Ox - PO BID [facility] Home Medications Medication Instructions Recorded Losartan Potassium 100 mg PO DAILY 09/23/19 Microbiology 09/22/19 10:30 Blood - Peripheral Venous Blood Culture - Final NO GROWTH AFTER 5 DAYS INCUBATION 09/22/19 10:15 Blood - Peripheral Venous Blood Culture - Final NO GROWTH AFTER 5 DAYS INCUBATION 09/22/19 13:30 Stool Salmonella/Shigella Culture - Final NO GROWTH OF SALMONELLA OR SHIGELLA SPECIES OBTAINED 09/22/19 13:30 Stool Campylobacter Culture - Final NO GROWTH OF CAMPYLOBACTER SPECIES OBTAINED 09/22/19 13:30 Stool Yersinia Culture - Final NO GROWTH OF YERSINIA SPECIES OBTAINED 09/22/19 13:30 Stool Vibrio Culture - Final NO GROWTH OF VIBRIO SPECIES OBTAINED 09/22/19 13:30 Stool Escherichia coli 0157 Culture - Final NO GROWTH OF E COLI 0157 OBTAINED 09/22/19 09:50 Urine - Urine Clean Catch Urine Culture - Final NO GROWTH OBTAINED Assessment and plan: Patient is a 64yom with PMhx of HTN, HLP, DM, who presented with diarrhea x 1 week and abdominal pain x 2 days , and was found to have perforated appendicitis. # s/p sepsis due to Acute appendicitis with early perforation and abscess formation. continue IV abx further management per ID and the surgeon. as per IR. the collection is not drainable at this point. will continue IV abx an for IV Abx with repeat imaging in near future. # MELANIE: improved Cr. cont IVF # Non anion gap Metabolic acidosis: due to diarrhea and renal failure. resolved. Monitor bicarb # H/o HTN: BP stable off meds. will resume when elevated # H/o DM : cont SSI DVT Px: SCDs . heparin SQ
--- NOTE | 2019-09-28 09:35 | PN ---
Physical Exam: SUBJECTIVE: Patient seen and examined OOB sitting comfortably in chair. He offers no complaints this AM. He says that he is passing stool normally. He has no abdominal pain. 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 OBJECTIVE: Vital Signs Period Temp Pulse Resp BP Sys/Wilkerson Pulse Ox Last 24 Hr 98.4 F-99.1 F 63-74 18-20 97-137/45-72 96 GENERAL: AOx3, in no acute distress. HEAD: NCAT EYES: KANDICE, EOMI, conjunctiva clear. ENT: Ears normal, nares patent, oropharynx clear without exudates. Moist mucous membranes. NECK: Normal range of motion, supple without lymphadenopathy, JVD, or masses. LUNGS: CTAB. No wheezes, and no crackles. No accessory muscle use. HEART: RRR s1 s2 ABDOMEN: Soft, BS present in all 4 quadrants, non-distended, no JVD, MUSCULOSKELETAL: No bony deformities or tenderness. No CVA tenderness. UPPER EXTREMITIES: 2+ pulses, warm, well-perfused. No cyanosis. No clubbing. No peripheral edema. LOWER EXTREMITIES: 2+ pulses, warm, well-perfused. No calf tenderness. No peripheral edema. NEUROLOGICAL: No focal deficits. Cranial nerves II-XII intact. Normal speech. Gait not appreciated. PSYCHIATRIC: Cooperative. Good eye contact. Appropriate mood and affect. SKIN: Warm, dry, normal turgor, no rashes or lesions noted, normal capillary refill. Laboratory Results - last 24 hr 09/27/19 09/27/19 09/27/19 12:10 17:12 21:39 WBC RBC Hgb Hct MCV MCH MCHC RDW Plt Count MPV Retic Count Sodium Potassium Chloride Carbon Dioxide Anion Gap BUN Creatinine Est GFR (CKD-EPI)AfAm Est GFR (CKD-EPI)NonAf POC Glucometer 110 88 125 Random Glucose Calcium Phosphorus Magnesium Iron TIBC Iron Saturation Unsaturated IBC Ferritin Vitamin B12 Serum Folate 09/28/19 09/28/19 09/28/19 05:31 05:34 05:39 WBC 14.6 H RBC 2.89 L Hgb 8.9 L Hct 25.9 L MCV 89.7 MCH 31.0 MCHC 34.5 RDW 13.7 Plt Count 339 MPV 8.8 Retic Count 0.89 Sodium 139 Potassium 4.0 Chloride 108 H Carbon Dioxide 21 Anion Gap 10 BUN 8.5 Creatinine 1.3 Est GFR (CKD-EPI)AfAm 67.78 Est GFR (CKD-EPI)NonAf 58.48 POC Glucometer Random Glucose 86 Calcium 8.3 L Phosphorus 2.5 Magnesium 1.6 L Iron 19 L TIBC 199 L Iron Saturation 9 L Unsaturated IBC 180 L Ferritin 490.8 H Vitamin B12 664 Serum Folate 19 H 09/28/19 05:58 WBC RBC Hgb Hct MCV MCH MCHC RDW Plt Count MPV Retic Count Sodium Potassium Chloride Carbon Dioxide Anion Gap BUN Creatinine Est GFR (CKD-EPI)AfAm Est GFR (CKD-EPI)NonAf POC Glucometer 104 Random Glucose Calcium Phosphorus Magnesium Iron TIBC Iron Saturation Unsaturated IBC Ferritin Vitamin B12 Serum Folate Active Medications Acetaminophen (Tylenol -) 650 mg PO Q6H PRN PRN Reason: Pain or fever Amlodipine Besylate (Norvasc -) 10 mg PO DAILY MIKAYLA Last Admin: 09/28/19 09:59 Dose: 10 mg Heparin Sodium (Porcine) (Heparin -) 5,000 unit SQ TID MIKAYLA Last Admin: 09/28/19 05:56 Dose: 5,000 unit Piperacillin Sod/Tazobactam (Sod 4.5 gm/ Dextrose) 100 mls @ 200 mls/hr IVPB Q8H-IV MIKAYLA; Protocol Last Admin: 09/28/19 09:58 Dose: 200 mls/hr Potassium Chloride/Sodium Chloride (1/2ns+20meq Kcl) 20 meq in 1,000 mls @ 75 mls/hr IV ASDIR MIKAYLA Last Admin: 09/27/19 12:25 Dose: 75 mls/hr Insulin Aspart (Novolog Vial Sliding Scale -) 1 vial SQ ACHS MIKAYLA; Protocol Last Admin: 09/28/19 11:27 Dose: Not Given ASSESSMENT/PLAN: 64 y/o male PMH HTN and DM c/o abdominal pain and diarrhea, admitted for acute appendicitis. Pt initially managed on abx and hydration. Abdominal/pelv CT demonstrates ill-defined collection in RLQ consistent with abscess from perforated appendicitis. # Appendicitis with abscess formation - IVF - Zosyn 4.5 g IV q8h - Not being considered for drainage - Follow ID rec for abx duration # Normocytic anemia - Likely 2/2 dilution; high vol of fluids provided for care of appendicitis - Anemia work-up consistent with pro-inflammatory state: serum iron, TIBC low low, ferritin high, retic. low, FOBT, b12 normal and folate high # Hypokalemia - Improved # MELANIE on CKD - Likely 2/2 prerenal disease and GI losses - Improving - Cont. IVF - Cont. to follow BMP # Non anion gap metabolic acidosis - Now resolved - Etiology likely diarrhea and renal failure. - Cont. to monitor bicarb # F/E/N - 1/2 NS - Cont. to monitor - Trial of DM diet tolerated well, producing formed stool - Stool culture NEGATIVE # DVT prophylaxis - SCD # Disposition - Full code Immanuel Styles MD Visit type - Emergency Visit Emergency Visit: No - New Patient This patient is new to me today: No - Critical Care Critical Care patient: No ATTENDING PHYSICIAN STATEMENT I saw and evaluated the patient. I reviewed the resident's note and discussed the case with the resident. I agree with the resident's findings and plan as documented. SUBJECTIVE: OBJECTIVE: ASSESSMENT AND PLAN:
[2019-09-28] MEDS: amLODIPine BESYLATE 10 MG TABLET (FP) PO SCH (09:59)
[2019-09-28] MEDS ORDERED: MAGNESIUM OXIDE 400 MG TABLET (FP) PO SCH (10:00)
[2019-09-28] MEDS ORDERED: PT OWN MED DRAWER 7, Y5N ONE ×2 (10:22→13:46)
--- NOTE | 2019-09-28 10:26 | PN ---
Progress Note (short form) - Note Progress Note: feels well no pain Vital Signs Period Temp Pulse Resp BP Sys/Wilkerson Pulse Ox Last 24 Hr 98.4 F-99.1 F 63-74 18-20 97-137/45-72 96 cor-rrr lungs clear abd soft,nt ext no edema CBC, BMP 09/28/19 05:34 09/28/19 05:39 Microbiology 09/22/19 10:30 Blood - Peripheral Venous Blood Culture - Final NO GROWTH AFTER 5 DAYS INCUBATION 09/22/19 10:15 Blood - Peripheral Venous Blood Culture - Final NO GROWTH AFTER 5 DAYS INCUBATION 09/22/19 13:30 Stool Salmonella/Shigella Culture - Final NO GROWTH OF SALMONELLA OR SHIGELLA SPECIES OBTAINED 09/22/19 13:30 Stool Campylobacter Culture - Final NO GROWTH OF CAMPYLOBACTER SPECIES OBTAINED 09/22/19 13:30 Stool Yersinia Culture - Final NO GROWTH OF YERSINIA SPECIES OBTAINED 09/22/19 13:30 Stool Vibrio Culture - Final NO GROWTH OF VIBRIO SPECIES OBTAINED 09/22/19 13:30 Stool Escherichia coli 0157 Culture - Final NO GROWTH OF E COLI 0157 OBTAINED 09/22/19 09:50 Urine - Urine Clean Catch Urine Culture - Final NO GROWTH OBTAINED a/p appendicitis- continued leukocytosis- day #6 zosyn d/w Dr Foster yesterday- apparently abscess is not amenable to drainage check crp in am melanie- resolved Problem List - Problems (1) Appendicitis Code(s): K37 - UNSPECIFIED APPENDICITIS Qualifiers: Appendicitis type: unspecified Qualified Code(s): K37 - Unspecified appendicitis (2) MELANIE (acute kidney injury) Code(s): N17.9 - ACUTE KIDNEY FAILURE, UNSPECIFIED
--- NOTE | 2019-09-28 11:23 | PN ---
Progress Note, Physician History of Present Illness: Patient with perforated appendicitis, being treated with IV fluids and antibiotics, tolerating diet. He is seen and examined sitting up in chair. Reports no pain. Continued slow improvement in wbc, 14.6 today. Hb stable but anemic in 8's. On Zosyn per ID. Renal also following. Mag repleted, K better. He reports BMs are soft and no longer diarrhea. Voiding ok. - Current Medication List Current Medications: Active Medications Acetaminophen (Tylenol -) 650 mg PO Q6H PRN PRN Reason: Pain or fever Amlodipine Besylate (Norvasc -) 10 mg PO DAILY [facility] Last Admin: 09/28/19 09:59 Dose: 10 mg Heparin Sodium (Porcine) (Heparin -) 5,000 unit SQ TID [facility] Last Admin: 09/28/19 05:56 Dose: 5,000 unit Piperacillin Sod/Tazobactam (Sod 4.5 gm/ Dextrose) 100 mls @ 200 mls/hr IVPB Q8H-IV MIKAYLA; Protocol Last Admin: 09/28/19 09:58 Dose: 200 mls/hr Potassium Chloride/Sodium Chloride (1/2ns+20meq Kcl) 20 meq in 1,000 mls @ 75 mls/hr IV ASDIR [facility] Last Admin: 09/27/19 12:25 Dose: 75 mls/hr Insulin Aspart (Novolog Vial Sliding Scale -) 1 vial SQ ACHS [facility]; Protocol Last Admin: 09/28/19 06:00 Dose: Not Given - Objective Vital Signs: Vital Signs Temperature 99.1 F 09/28/19 05:00 Pulse Rate 74 09/28/19 05:00 Respiratory Rate 20 09/28/19 05:00 Blood Pressure 133/72 09/28/19 05:00 O2 Sat by Pulse Oximetry (%) 96 09/27/19 20:39 Constitutional: Yes: Well Nourished, No Distress, Calm Eyes: Yes: Conjunctiva Clear, EOM Intact HENT: Yes: Atraumatic, Normocephalic Gastrointestinal: Yes: Soft, Abdomen, Obese. No: Tenderness Extremities: No: Cool, Cyanosis Integumentary: No: Jaundice, Rash Neurological: Yes: Alert, Oriented. No: Unsteady Gait Labs: CBC, BMP 09/28/19 05:34 12/18/19 05:39 Mg 1.6 - ....Imaging Cat Scan: Report Reviewed, Image Reviewed (reviewed yesterday - not accessible for IR drainage per Dr. Patterson) Problem List - Problems (1) Acute appendicitis with perforation and localized peritonitis, without gangrene Assessment/Plan: perforated appendicitis with appendicolith + abscess on CT, not amenable to IR drainage no pain or tenderness tolerating diet continue IV antibiotics per ID replete lytes prn can probably stop IV fluids soon strict I/O's - monitor UOP no clear benefit to rescan in near future would defer to ID for PICC and duration of IV antibiotics, repeat labs wbc not yet normal consider rescan toward end of antibiotic course had discussed with Dr. Clark will need colonoscopy 6-8 weeks after resolution of this illness, then can pursue interval appendectomy with surgery gave him my card Code(s): K35.32 - ACUTE APPENDICITIS WITH PERF AND LOC PERITONITIS, W/O ABSCS Qualifiers: Appendicitis abscess presence: without abscess Qualified Code(s): K35.32 - Acute appendicitis with perforation and localized peritonitis, without abscess (2) Dehydration Code(s): E86.0 - DEHYDRATION (3) Hypertension Code(s): I10 - ESSENTIAL (PRIMARY) HYPERTENSION Qualifiers: Hypertension type: essential hypertension Qualified Code(s): I10 - Essential (primary) hypertension (4) Hyperlipidemia Code(s): E78.5 - HYPERLIPIDEMIA, UNSPECIFIED Qualifiers: Hyperlipidemia type: unspecified Qualified Code(s): E78.5 - Hyperlipidemia , unspecified (5) Diabetes mellitus with chronic kidney disease, without long-term current use of insulin Code(s): E11.22 - TYPE 2 DIABETES MELLITUS W DIABETIC CHRONIC KIDNEY DISEASE Qualifiers: Diabetes mellitus type: type 2 Chronic kidney disease stage: stage 2 (mild ) Qualified Code(s): E11.22 - Type 2 diabetes mellitus with diabetic chronic kidney disease; N18.2 - Chronic kidney disease, stage 2 (mild) (6) Acute kidney injury superimposed on chronic kidney disease Code(s): N17.9 - ACUTE KIDNEY FAILURE, UNSPECIFIED; N18.9 - CHRONIC KIDNEY DISEASE, UNSPECIFIED
--- NOTE | 2019-09-28 11:30 | PN ---
Progress Note, Physician History of Present Illness: Pt seen and examined at bedside. He is awake and alert. He has appetite. - Current Medication List Current Medications: Active Medications Acetaminophen (Tylenol -) 650 mg PO Q6H PRN PRN Reason: Pain or fever Amlodipine Besylate (Norvasc -) 10 mg PO DAILY [facility] Last Admin: 09/28/19 09:59 Dose: 10 mg Heparin Sodium (Porcine) (Heparin -) 5,000 unit SQ TID MIKAYLA Last Admin: 09/28/19 05:56 Dose: 5,000 unit Piperacillin Sod/Tazobactam (Sod 4.5 gm/ Dextrose) 100 mls @ 200 mls/hr IVPB Q8H-IV MIKAYLA; Protocol Last Admin: 09/28/19 09:58 Dose: 200 mls/hr Potassium Chloride/Sodium Chloride (1/2ns+20meq Kcl) 20 meq in 1,000 mls @ 75 mls/hr IV ASDIR MIKAYLA Last Admin: 09/27/19 12:25 Dose: 75 mls/hr Insulin Aspart (Novolog Vial Sliding Scale -) 1 vial SQ ACHS MIKAYLA; Protocol Last Admin: 09/28/19 11:27 Dose: Not Given - Objective Vital Signs: Vital Signs Temperature 99.1 F 09/28/19 05:00 Pulse Rate 74 09/28/19 05:00 Respiratory Rate 20 09/28/19 05:00 Blood Pressure 133/72 09/28/19 05:00 O2 Sat by Pulse Oximetry (%) 96 09/27/19 20:39 Constitutional: Yes: Calm Eyes: Yes: Conjunctiva Clear HENT: Yes: Atraumatic Neck: Yes: Supple Cardiovascular: Yes: S1, S2 Respiratory: Yes: CTA Bilaterally Gastrointestinal: Yes: WNL Genitourinary: Yes: WNL Musculoskeletal: Yes: WNL Edema: No Neurological: Yes: Oriented Psychiatric: Yes: Oriented Labs: CBC, BMP 09/28/19 05:34 09/28/19 05:39 INR, PTT INR 1.36 (0.82-1.09) H 09/22/19 10:15 Problem List - Problems (1) MELANIE (acute kidney injury) Code(s): N17.9 - ACUTE KIDNEY FAILURE, UNSPECIFIED (2) Appendicitis Code(s): K37 - UNSPECIFIED APPENDICITIS Qualifiers: Appendicitis type: unspecified Qualified Code(s): K37 - Unspecified appendicitis Assessment/Plan Current Medications Generic Name Dose Route Start Last Admin Trade Name Freq PRN Reason Stop Dose Admin Acetaminophen 650 mg 09/27/19 15:52 Tylenol - PO Q6H PRN Pain or fever Amlodipine Besylate 10 mg 09/23/19 17:14 09/28/19 09:59 Norvasc - PO 10 mg DAILY MIKAYLA Administration Heparin Sodium (Porcine) 5,000 unit 09/23/19 22:00 09/28/19 05:56 Heparin - SQ 5,000 unit TID MIKAYLA Administration Piperacillin Sod/Tazobactam 100 mls @ 200 mls/hr 09/25/19 18:00 09/28/19 09: 58 Sod 4.5 gm/ Dextrose IVPB 200 mls/hr Q8H-IV MIKAYLA Administration Protocol Potassium Chloride/Sodium Chloride 20 meq in 1,000 mls @ 75 mls/hr 09/27/19 12 :00 09/27/19 12:25 1/2ns+20meq Kcl IV 75 mls/hr ASDIR MIKAYLA Administration Insulin Aspart 1 vial 09/27/19 16:30 09/28/19 11:27 Novolog Vial Sliding Scale - SQ Not Given ACHS MIKAYLA Protocol Impression 1. MELANIE 2. appendicitis 3. acidosis 4. dm 5. htn Plan - surgery follow up for plan - cont fluids for now - monitor renal function - melanie likely from prerenal disease and GI losses
[2019-09-28] MEDS: SODIUM CHLORIDE 0.45%/POT 20 MEQ/1,000 ML INFUS.BAG IV SCH (12:00)
[2019-09-29] MEDS ORDERED: DEXTROSE 5%-WATER 100 ML IVPB ONE ×2 (02:52→09:44)
[2019-09-29] MEDS ORDERED: PIPERACILLIN/TAZOBACTAM 4.5 GM VIAL IVPB ONE ×2 (02:52→09:44)
[2019-09-29] MEDS: PIPERACILLIN/TAZOB 4.5 GM 4.5 GM in DEXTROSE 5%-WATER 100 ML IVPB SCH ×2 (02:54→09:46)
[2019-09-29] MEDS: HEPARIN NA (PORCINE) 5,000 UNITS/ML 1ML VIAL SQ SCH ×3 (05:44→22:15)
[2019-09-29] MEDS: INSULIN SLIDING SCALE (NOVOLOG) 1 VIAL SQ SCH ×3 (05:59→22:15)
[2019-09-29 07:02] LABS: HEMATOCRIT 25.3 % (35.4-49); HEMOGLOBIN 8.7 GM/dL (11.7-16.9); MCH 30.9 pg (25.7-33.7); MCHC 34.6 g/dl (32.0-35.9); MEAN CELL VOLUME 89.4 fl (80-96); MEAN PLT VOLUME 8.9 fl (7.5-11.1); PLATELET COUNT 342 K/MM3 (134-434); RBC 2.83 M/mm3 (4.00-5.60); WHITE BLOOD COUNT 12.4 K/mm3 (4.0-10.0)
[2019-09-29 07:37] LABS: BLOOD UREA NITROGEN 7.8 mg/dL (7-18); CALCIUM 8.4 mg/dL (8.5-10.1); CREATININE 1.4 mg/dL (0.55-1.3); MAGNESIUM 1.9 mg/dL (1.8-2.4); PHOSPHOROUS 2.7 mg/dL (2.5-4.9)
[2019-09-29] MEDS: amLODIPine BESYLATE 10 MG TABLET (FP) PO SCH (09:46)
[2019-09-29] MEDS: SODIUM CHLORIDE 0.45%/POT 20 MEQ/1,000 ML INFUS.BAG IV SCH ×2 (09:46→14:17)
--- NOTE | 2019-09-29 12:11 | PN ---
Physical Exam: SUBJECTIVE: Patient seen and examined OOB sitting comfortably in chair. He offers no complaints this AM. He says that he is passing stool normally. He has no abdominal pain. OBJECTIVE: Vital Signs Period Temp Pulse Resp BP Sys/Wilkerson Pulse Ox Last 24 Hr 98.1 F-98.8 F 63-76 20-20 118-132/57-70 96-98 GENERAL: AOx3, in no acute distress. HEAD: NCAT EYES: KANDICE, EOMI, conjunctiva clear. ENT: Ears normal, nares patent, oropharynx clear without exudates. Moist mucous membranes. NECK: Normal range of motion, supple without lymphadenopathy, JVD, or masses. LUNGS: CTAB. No wheezes, and no crackles. No accessory muscle use. HEART: RRR s1 s2 ABDOMEN: Soft, BS present in all 4 quadrants, non-distended, no JVD, MUSCULOSKELETAL: No bony deformities or tenderness. No CVA tenderness. UPPER EXTREMITIES: 2+ pulses, warm, well-perfused. No cyanosis. No clubbing. No peripheral edema. LOWER EXTREMITIES: 2+ pulses, warm, well-perfused. No calf tenderness. No peripheral edema. NEUROLOGICAL: No focal deficits. Cranial nerves II-XII intact. Normal speech. Gait not appreciated. PSYCHIATRIC: Cooperative. Good eye contact. Appropriate mood and affect. SKIN: Warm, dry, normal turgor, no rashes or lesions noted, normal capillary refill. Laboratory Results - last 24 hr 09/28/19 09/28/19 09/29/19 16:34 23:07 05:27 WBC RBC Hgb Hct MCV MCH MCHC RDW Plt Count MPV Sodium Potassium Chloride Carbon Dioxide Anion Gap BUN Creatinine Est GFR (CKD-EPI)AfAm Est GFR (CKD-EPI)NonAf POC Glucometer 103 102 94 Random Glucose Calcium Phosphorus Magnesium C-Reactive Protein 09/29/19 09/29/19 06:15 06:15 WBC 12.4 H RBC 2.83 L Hgb 8.7 L Hct 25.3 L MCV 89.4 MCH 30.9 MCHC 34.6 RDW 14.0 Plt Count 342 MPV 8.9 Sodium 138 Potassium 4.0 Chloride 108 H Carbon Dioxide 23 Anion Gap 8 BUN 7.8 Creatinine 1.4 H Est GFR (CKD-EPI)AfAm 61.97 Est GFR (CKD-EPI)NonAf 53.47 POC Glucometer Random Glucose 90 Calcium 8.4 L Phosphorus 2.7 Magnesium 1.9 C-Reactive Protein 8.2 H Active Medications Acetaminophen (Tylenol -) 650 mg PO Q6H PRN PRN Reason: Pain or fever Amlodipine Besylate (Norvasc -) 10 mg PO DAILY [facility] Last Admin: 09/29/19 09:46 Dose: 10 mg Heparin Sodium (Porcine) (Heparin -) 5,000 unit SQ TID MIKAYLA Last Admin: 09/29/19 14:19 Dose: 5,000 unit Potassium Chloride/Sodium Chloride (1/2ns+20meq Kcl) 20 meq in 1,000 mls @ 75 mls/hr IV ASDIR MIKAYLA Last Admin: 09/29/19 14:17 Dose: Not Given Ertapenem 1 gm/ Sodium (Chloride) 50 mls @ 100 mls/hr IVPB DAILY [facility] Last Admin: 09/29/19 14:19 Dose: 100 mls/hr Insulin Aspart (Novolog Vial Sliding Scale -) 1 vial SQ ACHS [facility]; Protocol Last Admin: 09/29/19 12:17 Dose: Not Given ASSESSMENT/PLAN: 64 y/o male PMH HTN and DM c/o abdominal pain and diarrhea, admitted for acute appendicitis. Pt initially managed on abx and hydration. Abdominal/pelv CT demonstrates ill-defined collection in RLQ consistent with abscess from perforated appendicitis. Surgery not currently being offered. Will f/u with ID recs. # Appendicitis with abscess formation - IVF - Zosyn 4.5 g IV q8h - Not being considered for drainage - Follow ID rec for abx duration # Normocytic anemia - Likely 2/2 dilution; high vol of fluids provided for care of appendicitis - Anemia work-up consistent with pro-inflammatory state: serum iron, TIBC low low, ferritin high, retic. low, FOBT, b12 normal and folate high # Hypokalemia - Improved # MELANIE on CKD - Likely 2/2 prerenal disease and GI losses - Improving - Cont. IVF - Cont. to follow BMP # Non anion gap metabolic acidosis - Now resolved - Etiology likely diarrhea and renal failure. - Cont. to monitor bicarb # F/E/N - 1/2 NS - Cont. to monitor - Trial of DM diet tolerated well, producing formed stool - Stool culture NEGATIVE # DVT prophylaxis - SCD # Disposition - Full code Immanuel Styles MD Visit type - Emergency Visit Emergency Visit: No - New Patient This patient is new to me today: No - Critical Care Critical Care patient: No ATTENDING PHYSICIAN STATEMENT I saw and evaluated the patient. I reviewed the resident's note and discussed the case with the resident. I agree with the resident's findings and plan as documented. SUBJECTIVE: OBJECTIVE: ASSESSMENT AND PLAN:
[2019-09-29] MEDS: ERTAPENEM SODIUM 1 GM in SODIUM CHLORIDE 50 ML IVPB SCH (14:19)
--- NOTE | 2019-09-29 15:32 | PN ---
Progress Note, Physician History of Present Illness: Pt seen and examined at bedside. He is awake and alert. He denies shortness of breath. He is tolerating diet so far. - Current Medication List Current Medications: Active Medications Acetaminophen (Tylenol -) 650 mg PO Q6H PRN PRN Reason: Pain or fever Amlodipine Besylate (Norvasc -) 10 mg PO DAILY [facility] Last Admin: 09/29/19 09:46 Dose: 10 mg Heparin Sodium (Porcine) (Heparin -) 5,000 unit SQ TID MIKAYLA Last Admin: 09/29/19 14:19 Dose: 5,000 unit Potassium Chloride/Sodium Chloride (1/2ns+20meq Kcl) 20 meq in 1,000 mls @ 75 mls/hr IV ASDIR [facility] Last Admin: 09/29/19 14:17 Dose: Not Given Ertapenem 1 gm/ Sodium (Chloride) 50 mls @ 100 mls/hr IVPB DAILY [facility] Last Admin: 09/29/19 14:19 Dose: 100 mls/hr Insulin Aspart (Novolog Vial Sliding Scale -) 1 vial SQ ACHS [facility]; Protocol Last Admin: 09/29/19 12:17 Dose: Not Given - Objective Vital Signs: Vital Signs Temperature 98.1 F 09/29/19 06:00 Pulse Rate 66 09/29/19 06:00 Respiratory Rate 20 09/29/19 09:00 Blood Pressure 124/63 09/29/19 06:00 O2 Sat by Pulse Oximetry (%) 98 09/29/19 09:00 Constitutional: Yes: Calm Eyes: Yes: Conjunctiva Clear HENT: Yes: Atraumatic Neck: Yes: Supple Cardiovascular: Yes: S1, S2 Respiratory: Yes: CTA Bilaterally Gastrointestinal: Yes: Normal Bowel Sounds, Soft Genitourinary: Yes: WNL Musculoskeletal: Yes: WNL Edema: No Neurological: Yes: Oriented Psychiatric: Yes: Oriented Labs: CBC, BMP 09/29/19 06:15 09/29/19 06:15 INR, PTT INR 1.36 (0.82-1.09) H 09/22/19 10:15 Problem List - Problems (1) MELANIE (acute kidney injury) Code(s): N17.9 - ACUTE KIDNEY FAILURE, UNSPECIFIED (2) Appendicitis Code(s): K37 - UNSPECIFIED APPENDICITIS Qualifiers: Qualified Code(s): K37 - Unspecified appendicitis Assessment/Plan Current Medications Generic Name Dose Route Start Last Admin Trade Name Freq PRN Reason Stop Dose Admin Acetaminophen 650 mg 09/27/19 15:52 Tylenol - PO Q6H PRN Pain or fever Amlodipine Besylate 10 mg 09/23/19 17:14 09/29/19 09:46 Norvasc - PO 10 mg DAILY MIKAYLA Administration Heparin Sodium (Porcine) 5,000 unit 09/23/19 22:00 09/29/19 14:19 Heparin - SQ 5,000 unit TID MIKAYLA Administration Potassium Chloride/Sodium Chloride 20 meq in 1,000 mls @ 75 mls/hr 09/27/19 12 :00 09/29/19 14:17 1/2ns+20meq Kcl IV Not Given ASDIR MIKAYLA Ertapenem 1 gm/ Sodium 50 mls @ 100 mls/hr 09/29/19 12:15 09/29/19 14:19 Chloride IVPB 100 mls/hr DAILY MIKAYLA Administration Insulin Aspart 1 vial 09/27/19 16:30 09/29/19 12:17 Novolog Vial Sliding Scale - SQ Not Given ACHS MIKAYLA Protocol Impression 1. MELANIE 2. appendicitis 3. acidosis 4. dm 5. htn Plan - cont d/c fluids once pt tolerating diet - abx per primary team - monitor renal function - melanie likely from prerenal disease and GI losses
--- NOTE | 2019-09-29 15:51 | PN ---
Teaching Attending Note Name of Resident: Immanuel Styles ATTENDING PHYSICIAN STATEMENT I saw and evaluated the patient. I reviewed the resident's note and discussed the case with the resident. I agree with the resident's findings and plan as documented. SUBJECTIVE: Patient is comfortable , has no further fever or chills. Vital Signs Temperature 98.1 F 09/29/19 06:00 Pulse Rate 66 09/29/19 06:00 Respiratory Rate 20 09/29/19 09:00 Blood Pressure 124/63 09/29/19 06:00 O2 Sat by Pulse Oximetry (%) 98 09/29/19 09:00 GENERAL: The patient is awake, alert, and fully oriented, in no acute distress. HEAD: Normal with no signs of trauma. EYES: PERRL, extraocular movements intact, sclera anicteric, conjunctiva clear. ENT: Ears normal, oropharynx clear without exudates, moist mucous membranes. NECK: Trachea midline, full range of motion, supple. LUNGS: Breath sounds equal, clear to auscultation bilaterally, no wheezes, no crackles, no accessory muscle use. HEART: Regular rate and rhythm, S1, S2 without murmur, rub or gallop. ABDOMEN: Soft, NT, ND, normoactive bowel sounds, no guarding, no rebound, no hepatosplenomegaly, no masses. EXTREMITIES: 2+ pulses, warm, well-perfused, no edema. NEUROLOGICAL: Cranial nerves II through XII grossly intact. Normal speech, gait not observed. PSYCH: Normal mood, normal affect. SKIN: Warm, dry, normal turgor, no rashes or lesions noted CBCD WBC 12.4 K/mm3 (4.0-10.0) H 09/29/19 06:15 RBC 2.83 M/mm3 (4.00-5.60) L 09/29/19 06:15 Hgb 8.7 GM/dL (11.7-16.9) L 09/29/19 06:15 Hct 25.3 % (35.4-49) L 09/29/19 06:15 MCV 89.4 fl (80-96) 09/29/19 06:15 MCHC 34.6 g/dl (32.0-35.9) 09/29/19 06:15 RDW 14.0 % (11.9-15.9) 09/29/19 06:15 Plt Count 342 K/MM3 (134-434) 09/29/19 06:15 MPV 8.9 fl (7.5-11.1) 09/29/19 06:15 CMP Sodium 138 mmol/L (136-145) 09/29/19 06:15 Potassium 4.0 mmol/L (3.5-5.1) 09/29/19 06:15 Chloride 108 mmol/L (98-107) H 09/29/19 06:15 Carbon Dioxide 23 mmol/L (21-32) 09/29/19 06:15 Anion Gap 8 MMOL/L (8-16) 09/29/19 06:15 BUN 7.8 mg/dL (7-18) 09/29/19 06:15 Creatinine 1.4 mg/dL (0.55-1.3) H 09/29/19 06:15 Random Glucose 90 mg/dL (74-106) 09/29/19 06:15 Calcium 8.4 mg/dL (8.5-10.1) L 09/29/19 06:15 Total Bilirubin 0.4 mg/dL (0.2-1) 09/27/19 05:45 AST 13 U/L (15-37) L 09/27/19 05:45 ALT 15 U/L (13-61) 09/27/19 05:45 Alkaline Phosphatase 49 U/L (45-117) 09/27/19 05:45 Total Protein 5.5 g/dl (6.4-8.2) L 09/27/19 05:45 Albumin 2.1 g/dl (3.4-5.0) L 09/27/19 05:45 CARDIAC ENZYMES Troponin I 0.03 ng/ml (0.00-0.05) 09/22/19 10:15 Current Medications Generic Name Dose Route Start Last Admin Trade Name Freq PRN Reason Stop Dose Admin Acetaminophen 650 mg 09/27/19 15:52 Tylenol - PO Q6H PRN Pain or fever Amlodipine Besylate 10 mg 09/23/19 17:14 09/29/19 09:46 Norvasc - PO 10 mg DAILY MIKAYLA Administration Heparin Sodium (Porcine) 5,000 unit 09/23/19 22:00 09/29/19 14:19 Heparin - SQ 5,000 unit TID MIKAYLA Administration Potassium Chloride/Sodium Chloride 20 meq in 1,000 mls @ 75 mls/hr 09/27/19 12 :00 09/29/19 14:17 1/2ns+20meq Kcl IV Not Given ASDIR MIKAYLA Ertapenem 1 gm/ Sodium 50 mls @ 100 mls/hr 09/29/19 12:15 09/29/19 14:19 Chloride IVPB 100 mls/hr DAILY [facility]KAYLA Administration Insulin Aspart 1 vial 09/27/19 16:30 09/29/19 12:17 Novolog Vial Sliding Scale - SQ Not Given ACHS MIKAYLA Protocol 09/22/19 10:30 Blood - Peripheral Venous Blood Culture - Final NO GROWTH AFTER 5 DAYS INCUBATION 09/22/19 10:15 Blood - Peripheral Venous Blood Culture - Final NO GROWTH AFTER 5 DAYS INCUBATION 09/22/19 13:30 Stool Salmonella/Shigella Culture - Final NO GROWTH OF SALMONELLA OR SHIGELLA SPECIES OBTAINED 09/22/19 13:30 Stool Campylobacter Culture - Final NO GROWTH OF CAMPYLOBACTER SPECIES OBTAINED 09/22/19 13:30 Stool Yersinia Culture - Final NO GROWTH OF YERSINIA SPECIES OBTAINED 09/22/19 13:30 Stool Vibrio Culture - Final NO GROWTH OF VIBRIO SPECIES OBTAINED 09/22/19 13:30 Stool Escherichia coli 0157 Culture - Final NO GROWTH OF E COLI 0157 OBTAINED 09/22/19 09:50 Urine - Urine Clean Catch Urine Culture - Final NO GROWTH OBTAINED Assessment and plan: Patient is a 64yom with PMhx of HTN, HLP, DM, who presented with diarrhea x 1 week and abdominal pain x 2 days , and was found to have perforated appendicitis. # s/p sepsis due to Acute appendicitis with early perforation and abscess formation. Will discuss with ID and Sx further care. discussed with the patient in details. CRP is 8.24, continue IV abx further management per ID and the surgeon. As per IR. the collection is not drainable at this point. will continue IV abx an for IV Abx with repeat imaging in near future. # MELANIE: improved Cr. cont IVF # H/o HTN: BP stable off meds. will resume when elevated # H/o DM : cont SSI DVT Px: SCDs . heparin SQ
--- NOTE | 2019-09-29 16:23 | PN ---
Progress Note (short form) - Note Progress Note: feels well no pain Vital Signs Period Temp Pulse Resp BP Sys/Wilkerson Pulse Ox Last 24 Hr 98.1 F-98.8 F 63-80 20-20 124-138/57-70 96-98 cor-rrr lungs cleear abd soft,nt ext no edema CBC, BMP 09/29/19 06:15 09/29/19 06:15 Laboratory Tests 09/25/19 09/29/19 06:05 06:15 C-Reactive Protein 12.6 H 8.2 H a/p appendicitis- continued leukocytosis- day #7 zosyn crp remains elevated as well switch to ertapenem today will follow Problem List - Problems (1) Appendicitis Code(s): K37 - UNSPECIFIED APPENDICITIS Qualifiers: Appendicitis type: unspecified Qualified Code(s): K37 - Unspecified appendicitis (2) MELANIE (acute kidney injury) Code(s): N17.9 - ACUTE KIDNEY FAILURE, UNSPECIFIED
--- NOTE | 2019-09-29 18:26 | PN ---
Progress Note, Physician History of Present Illness: Patient with perforated appendicitis, being treated with IV fluids and antibiotics, tolerating diet. He reports no pain. Continued slow improvement in wbc, 12.4 today. Changed to Ertapenem today by ID. - Current Medication List Current Medications: Active Medications Acetaminophen (Tylenol -) 650 mg PO Q6H PRN PRN Reason: Pain or fever Amlodipine Besylate (Norvasc -) 10 mg PO DAILY [facility] Last Admin: 09/29/19 09:46 Dose: 10 mg Heparin Sodium (Porcine) (Heparin -) 5,000 unit SQ TID [facility]KAYLA Last Admin: 09/29/19 14:19 Dose: 5,000 unit Potassium Chloride/Sodium Chloride (1/2ns+20meq Kcl) 20 meq in 1,000 mls @ 75 mls/hr IV ASDIR [facility] Last Admin: 09/29/19 14:17 Dose: Not Given Ertapenem 1 gm/ Sodium (Chloride) 50 mls @ 100 mls/hr IVPB DAILY [facility] Last Admin: 09/29/19 14:19 Dose: 100 mls/hr Insulin Aspart (Novolog Vial Sliding Scale -) 1 vial SQ ACHS [facility]; Protocol Last Admin: 09/29/19 12:17 Dose: Not Given - Objective Vital Signs: Vital Signs Temperature 98.4 F 09/29/19 17:00 Pulse Rate 65 09/29/19 17:00 Respiratory Rate 20 09/29/19 17:00 Blood Pressure 128/55 L 09/29/19 17:00 O2 Sat by Pulse Oximetry (%) 98 09/29/19 09:00 Constitutional: Yes: Well Nourished, No Distress, Calm Eyes: Yes: Conjunctiva Clear, EOM Intact HENT: Yes: Atraumatic, Normocephalic Gastrointestinal: Yes: Soft, Abdomen, Obese. No: Tenderness Extremities: No: Cool, Cyanosis Integumentary: No: Jaundice, Rash Neurological: Yes: Alert, Oriented. No: Unsteady Gait Labs: CBC, BMP 09/29/19 06:15 09/29/19 06:15 Problem List - Problems (1) Acute appendicitis with perforation and localized peritonitis, without gangrene Assessment/Plan: perforated appendicitis with appendicolith + abscess on CT, not amenable to IR drainage no pain or tenderness tolerating diet continue IV antibiotics per ID plan for d/c with PICC for abx duration to be determined by ID will need PMD followup in 7-10 days possible rescan toward end of abx course will need colonoscopy 6-8 weeks after resolution of this illness, then can pursue interval appendectomy with surgeon of his choice discussed with Dr. Clark Code(s): K35.32 - ACUTE APPENDICITIS WITH PERF AND LOC PERITONITIS, W/O ABSCS Qualifiers: Appendicitis abscess presence: without abscess Qualified Code(s): K35.32 - Acute appendicitis with perforation and localized peritonitis, without abscess (2) Dehydration Code(s): E86.0 - DEHYDRATION (3) Hypertension Code(s): I10 - ESSENTIAL (PRIMARY) HYPERTENSION Qualifiers: Hypertension type: essential hypertension Qualified Code(s): I10 - Essential (primary) hypertension (4) Hyperlipidemia Code(s): E78.5 - HYPERLIPIDEMIA, UNSPECIFIED Qualifiers: Hyperlipidemia type: unspecified Qualified Code(s): E78.5 - Hyperlipidemia , unspecified (5) Diabetes mellitus with chronic kidney disease, without long-term current use of insulin Code(s): E11.22 - TYPE 2 DIABETES MELLITUS W DIABETIC CHRONIC KIDNEY DISEASE Qualifiers: Diabetes mellitus type: type 2 Chronic kidney disease stage: stage 2 (mild ) Qualified Code(s): E11.22 - Type 2 diabetes mellitus with diabetic chronic kidney disease; N18.2 - Chronic kidney disease, stage 2 (mild) (6) Acute kidney injury superimposed on chronic kidney disease Code(s): N17.9 - ACUTE KIDNEY FAILURE, UNSPECIFIED; N18.9 - CHRONIC KIDNEY DISEASE, UNSPECIFIED
[2019-09-30 06:42] LABS: HEMATOCRIT 28.2 % (35.4-49); HEMOGLOBIN 9.5 GM/dL (11.7-16.9); MCH 30.6 pg (25.7-33.7); MCHC 33.9 g/dl (32.0-35.9); MEAN CELL VOLUME 90.3 fl (80-96); MEAN PLT VOLUME 8.9 fl (7.5-11.1); PLATELET COUNT 392 K/MM3 (134-434); RBC 3.12 M/mm3 (4.00-5.60); WHITE BLOOD COUNT 8.6 K/mm3 (4.0-10.0)
[2019-09-30] MEDS: HEPARIN NA (PORCINE) 5,000 UNITS/ML 1ML VIAL SQ SCH (06:46)
[2019-09-30] MEDS: INSULIN SLIDING SCALE (NOVOLOG) 1 VIAL SQ SCH (06:47)
[2019-09-30 07:11] LABS: BLOOD UREA NITROGEN 7.5 mg/dL (7-18); CALCIUM 9.1 mg/dL (8.5-10.1); CREATININE 1.3 mg/dL (0.55-1.3); MAGNESIUM 1.8 mg/dL (1.8-2.4); PHOSPHOROUS 3.2 mg/dL (2.5-4.9); POTASSIUM 4.2 mmol/L (3.5-5.1)
[2019-09-30] MEDS: amLODIPine BESYLATE 10 MG TABLET (FP) PO SCH (10:12)
[2019-09-30] MEDS: ERTAPENEM SODIUM 1 GM in SODIUM CHLORIDE 50 ML IVPB SCH (10:20)
--- NOTE | 2019-09-30 11:29 | PN ---
Progress Note (short form) - Note Progress Note: feels well no pain eating no diarrhea Vital Signs Period Temp Pulse Resp BP Sys/Wilkerson Pulse Ox Last 24 Hr 97.8 F-98.6 F 62-82 20-20 111-138/53-64 100 cor-rrr lungs clear abd soft,nt ext no edema CBC, BMP 09/30/19 06:13 09/30/19 06:13 a/p appendicitis- wbc now normal, switched to ertapenem, will continue as outpt will f/u crp and labs as outpt will need outpt f/u with surgery for interval appendectomy and with PMD as well paper work completed for outpt infusion Laboratory Tests 09/25/19 09/29/19 09/30/19 06:05 06:15 06:13 C-Reactive Protein 12.6 H 8.2 H 7.8 H d/w dr duff Problem List - Problems (1) Appendicitis Code(s): K37 - UNSPECIFIED APPENDICITIS Qualifiers: Appendicitis type: unspecified Qualified Code(s): K37 - Unspecified appendicitis (2) MELANIE (acute kidney injury) Code(s): N17.9 - ACUTE KIDNEY FAILURE, UNSPECIFIED
--- NOTE | 2019-09-30 12:15 | PN ---
Progress Note, Physician History of Present Illness: Patient with perforated appendicitis with ill-defined abscess on repeat CT from Thursday, not perc drainable, being treated with IV fluids and antibiotics, tolerating diet. On Ertapenem per ID. No pain, wbc normal 8.6 today. CRP still elevated. - Current Medication List Current Medications: Active Medications Acetaminophen (Tylenol -) 650 mg PO Q6H PRN PRN Reason: Pain or fever Amlodipine Besylate (Norvasc -) 10 mg PO DAILY [facility] Last Admin: 09/30/19 10:12 Dose: 10 mg Heparin Sodium (Porcine) (Heparin -) 5,000 unit SQ TID [facility] Last Admin: 09/30/19 06:46 Dose: 5,000 unit Ertapenem 1 gm/ Sodium (Chloride) 50 mls @ 100 mls/hr IVPB DAILY [facility] Last Admin: 09/30/19 10:20 Dose: 100 mls/hr Insulin Aspart (Novolog Vial Sliding Scale -) 1 vial SQ ACHS [facility]; Protocol Last Admin: 09/30/19 06:47 Dose: Not Given - Objective Vital Signs: Vital Signs Temperature 97.8 F 09/30/19 09:00 Pulse Rate 68 09/30/19 09:00 Respiratory Rate 20 09/30/19 09:00 Blood Pressure 127/55 L 09/30/19 09:00 O2 Sat by Pulse Oximetry (%) 100 09/30/19 09:00 Constitutional: Yes: Well Nourished, No Distress, Calm Eyes: Yes: Conjunctiva Clear, EOM Intact HENT: Yes: Atraumatic, Normocephalic Gastrointestinal: Yes: Soft. No: Tenderness Extremities: No: Cool, Cyanosis Integumentary: No: Jaundice, Rash Neurological: Yes: Alert, Oriented Labs: CBC, BMP 09/30/19 06:13 09/30/19 06:13 Problem List - Problems (1) Acute appendicitis with perforation and localized peritonitis, without gangrene Assessment/Plan: perforated appendicitis with appendicolith + abscess on CT, not amenable to IR drainage no pain or tenderness tolerating diet daily IV antibiotics per ID via PICC, getting today plan for d/c today with daily infusions, duration to be determined by ID stop IV fluids pt to see PMD Dr. Brewer Wednesday 10/10 if still on antibiotics or symptoms recurrent, would get CT then with PO (no IV ) contrast will need colonoscopy 6-8 weeks after resolution of this illness, then can pursue interval appendectomy with surgeon of his choice discussed with Dr. Clark and Dr. Still Code(s): K35.32 - ACUTE APPENDICITIS WITH PERF AND LOC PERITONITIS, W/O ABSCS Qualifiers: Appendicitis abscess presence: without abscess Qualified Code(s): K35.32 - Acute appendicitis with perforation and localized peritonitis, without abscess (2) Dehydration Assessment/Plan: resolved Code(s): E86.0 - DEHYDRATION (3) Hypertension Assessment/Plan: BPs normal without his usual home losartan defer to medicine and PMD regarding resumption or discontinuation of home meds Code(s): I10 - ESSENTIAL (PRIMARY) HYPERTENSION Qualifiers: Hypertension type: essential hypertension Qualified Code(s): I10 - Essential (primary) hypertension (4) Hyperlipidemia Assessment/Plan: resume home med Code(s): E78.5 - HYPERLIPIDEMIA, UNSPECIFIED Qualifiers: Hyperlipidemia type: unspecified Qualified Code(s): E78.5 - Hyperlipidemia , unspecified (5) Diabetes mellitus with chronic kidney disease, without long-term current use of insulin Assessment/Plan: defer to medicine regarding resumption of metformin Code(s): E11.22 - TYPE 2 DIABETES MELLITUS W DIABETIC CHRONIC KIDNEY DISEASE Qualifiers: Diabetes mellitus type: type 2 Chronic kidney disease stage: stage 2 (mild ) Qualified Code(s): E11.22 - Type 2 diabetes mellitus with diabetic chronic kidney disease; N18.2 - Chronic kidney disease, stage 2 (mild) (6) Acute kidney injury superimposed on chronic kidney disease Assessment/Plan: resolved Code(s): N17.9 - ACUTE KIDNEY FAILURE, UNSPECIFIED; N18.9 - CHRONIC KIDNEY DISEASE, UNSPECIFIED
--- NOTE | 2019-09-30 14:17 | DS ---
Physical Exam: SUBJECTIVE: Patient seen and examined OOB sitting comfortably in chair, reading a book. He offers no complaints this AM. He says that he is passing stool normally. He has no abdominal pain and is agreeable to return for ertapenem via tunneled catheter (to be place today). OBJECTIVE: Vital Signs Period Temp Pulse Resp BP Sys/Wilkerson Pulse Ox Last 24 Hr 97.8 F-98.6 F 62-82 20-20 111-128/53-62 100 PHYSICAL EXAM GENERAL: AOx3, in no acute distress. HEAD: NCAT EYES: KANDICE, EOMI, conjunctiva clear. ENT: Ears normal, nares patent, oropharynx clear without exudates. Moist mucous membranes. NECK: Normal range of motion, supple without lymphadenopathy, JVD, or masses. LUNGS: CTAB. No wheezes, and no crackles. No accessory muscle use. HEART: RRR s1 s2 ABDOMEN: Soft, BS present in all 4 quadrants, non-distended, no JVD, MUSCULOSKELETAL: No bony deformities or tenderness. No CVA tenderness. UPPER EXTREMITIES: 2+ pulses, warm, well-perfused. No cyanosis. No clubbing. No peripheral edema. LOWER EXTREMITIES: 2+ pulses, warm, well-perfused. No calf tenderness. No peripheral edema. NEUROLOGICAL: No focal deficits. Cranial nerves II-XII intact. Normal speech. Gait not appreciated. PSYCHIATRIC: Cooperative. Good eye contact. Appropriate mood and affect. SKIN: Warm, dry, normal turgor, no rashes or lesions noted, normal capillary refill. LABS 09/29/19 09/30/19 09/30/19 22:12 05:38 06:13 WBC 8.6 RBC 3.12 L Hgb 9.5 L Hct 28.2 L MCV 90.3 MCH 30.6 MCHC 33.9 RDW 14.0 Plt Count 392 MPV 8.9 Sodium Potassium Chloride Carbon Dioxide Anion Gap BUN Creatinine Est GFR (CKD-EPI)AfAm Est GFR (CKD-EPI)NonAf POC Glucometer 89 80 Random Glucose Calcium Phosphorus Magnesium C-Reactive Protein 09/30/19 06:13 WBC RBC Hgb Hct MCV MCH MCHC RDW Plt Count MPV Sodium 138 Potassium 4.2 Chloride 108 H Carbon Dioxide 24 Anion Gap 7 L BUN 7.5 Creatinine 1.3 Est GFR (CKD-EPI)AfAm 67.78 Est GFR (CKD-EPI)NonAf 58.48 POC Glucometer Random Glucose 83 Calcium 9.1 Phosphorus 3.2 Magnesium 1.8 C-Reactive Protein 7.8 H HOSPITAL COURSE: Date of Admission:09/22/19 64 y/o male PMH HTN and DM c/o abdominal pain and diarrhea for 1 week, admitted for acute appendicitis. Pt initially managed on abx and hydration. Abdominal/ pelv CT demonstrated ill-defined collection in RLQ consistent with abscess from perforated appendicitis. He initially presented with non-anion gap metabolic acidosis, which resolved. Stool culture was negative. IR did not drain, surgery was not performed, and he was managed medically. He was administered IVF and initiall Zosyn 4.5 g IV q8h. He was then switched to ertapenem 1g and had a tunneled catheter placed. Normocytic anemia was noted during stay and attributed to high vol of fluids provided for care of appendicitis. Anemia work- up consistent with pro-inflammatory state: serum iron, TIBC low low, ferritin high, retic. low, FOBT, b12 normal and folate high. Hypokalemia s/p diarrhea, was repleted, and improved. An MELANIE was appreciate and was likely 2/2 prerenal disease and GI losses; he improved with IVF. He was dc home with instructions to return daily for ertapenem. Date of Discharge: 09/30/19 Immanuel Styles MD Minutes to complete discharge: 20 Discharge Summary Problems reviewed: Yes Reason For Visit: APPENDICITIS/HYPOTENSION Current Active Problems MELANIE (acute kidney injury) (Acute) Acute appendicitis with perforation and localized peritonitis, without gangrene (Acute) Acute kidney injury superimposed on chronic kidney disease (Acute) Appendicitis (Acute) Dehydration (Acute) Diabetes mellitus with chronic kidney disease, without long-term current use of insulin (Acute) Diarrhea (Acute) Hyperlipidemia (Acute) Hypertension (Acute) RLQ abdominal pain (Acute) Condition: Good - Instructions Diet, Activity, Other Instructions: YOUR VISIT You came to the hospital because you were experiencing abdominal pain and diarrhea. You were admitted to the hospital for care of appendicitis. While here, you were seen by an infectious disease specialist and a surgeon. With treatment you improved and you are now stable to return home. You will need to continue receiving antibiotics as described below. MEDICATIONS Please continue to take your home medications as prescribed. *NEW MEDICINE* You will need to return to the hospital to receive ertapenem (antibiotic) via you tunneled catheter. ADDITIONAL CARE Please make an appointment to see your primary care provider, Dr. Brewer, 1 week from today. You will need colonoscopy 6-8 weeks after resolution of this illness, and then you can pursue interval appendectomy with surgery. Please make an appointment with a surgeon 1 week from today. ADDITIONAL INFORMATION Please call 911 or come directly to the emergency department if you experience unusual headache, vision change, shortness of breath, chest pain, numbness, tingling, loss of alertness/awareness, loss of function, unusual bleeding or any alarming symptoms. Referrals: Alvin Brewer MD [Primary Care Provider] - Oma Clark MD [Staff Physician] - - Home Medications Comprehensive Discharge Medication List: Ambulatory Orders Losartan Potassium 100 mg PO DAILY 09/23/19 This patient is new to me today: No Emergency Visit: No Critical Care patient: No - Discharge Referral Referred to [facility] No ATTENDING PHYSICIAN STATEMENT I saw and evaluated the patient. I reviewed the resident's note and discussed the case with the resident. I agree with the resident's findings and plan as documented. SUBJECTIVE: OBJECTIVE: ASSESSMENT AND PLAN:
--- NOTE | 2019-09-30 14:23 | PN ---
Teaching Attending Note Name of Resident: Immanuel Styles ATTENDING PHYSICIAN STATEMENT I saw and evaluated the patient. I reviewed the resident's note and discussed the case with the resident. I agree with the resident's findings and plan as documented. SUBJECTIVE: Patient is comfortable with no acute distress. No nausea or vomiting , no shortness of breath, no abdominal pain. OBJECTIVE: Vital Signs Temperature 97.8 F 09/30/19 09:00 Pulse Rate 68 09/30/19 09:00 Respiratory Rate 20 09/30/19 09:00 Blood Pressure 127/55 L 09/30/19 09:00 O2 Sat by Pulse Oximetry (%) 100 09/30/19 09:00 GENERAL: The patient is awake, alert, and fully oriented, in no acute distress. HEAD: Normal with no signs of trauma. EYES: PERRL, extraocular movements intact, sclera anicteric, conjunctiva clear. ENT: Ears normal, oropharynx clear without exudates, moist mucous membranes. NECK: Trachea midline, full range of motion, supple. LUNGS: Breath sounds equal, clear to auscultation bilaterally, no wheezes, no crackles, no accessory muscle use. HEART: Regular rate and rhythm, S1, S2 without murmur, rub or gallop. ABDOMEN: Soft, NT, ND, normoactive bowel sounds, no guarding, no rebound, no hepatosplenomegaly, no masses. EXTREMITIES: 2+ pulses, warm, well-perfused, no edema. NEUROLOGICAL: Cranial nerves II through XII grossly intact. Normal speech, gait not observed. PSYCH: Normal mood, normal affect. SKIN: Warm, dry, normal turgor, no rashes or lesions noted CBCD WBC 8.6 K/mm3 (4.0-10.0) 09/30/19 06:13 RBC 3.12 M/mm3 (4.00-5.60) L 09/30/19 06:13 Hgb 9.5 GM/dL (11.7-16.9) L 09/30/19 06:13 Hct 28.2 % (35.4-49) L 09/30/19 06:13 MCV 90.3 fl (80-96) 09/30/19 06:13 MCHC 33.9 g/dl (32.0-35.9) 09/30/19 06:13 RDW 14.0 % (11.9-15.9) 09/30/19 06:13 Plt Count 392 K/MM3 (134-434) 09/30/19 06:13 MPV 8.9 fl (7.5-11.1) 09/30/19 06:13 CMP Sodium 138 mmol/L (136-145) 09/30/19 06:13 Potassium 4.2 mmol/L (3.5-5.1) 09/30/19 06:13 Chloride 108 mmol/L (98-107) H 09/30/19 06:13 Carbon Dioxide 24 mmol/L (21-32) 09/30/19 06:13 Anion Gap 7 MMOL/L (8-16) L 09/30/19 06:13 BUN 7.5 mg/dL (7-18) 09/30/19 06:13 Creatinine 1.3 mg/dL (0.55-1.3) 09/30/19 06:13 Random Glucose 83 mg/dL (74-106) 09/30/19 06:13 Calcium 9.1 mg/dL (8.5-10.1) 09/30/19 06:13 Total Bilirubin 0.4 mg/dL (0.2-1) 09/27/19 05:45 AST 13 U/L (15-37) L 09/27/19 05:45 ALT 15 U/L (13-61) 09/27/19 05:45 Alkaline Phosphatase 49 U/L (45-117) 09/27/19 05:45 Total Protein 5.5 g/dl (6.4-8.2) L 09/27/19 05:45 Albumin 2.1 g/dl (3.4-5.0) L 09/27/19 05:45 CARDIAC ENZYMES Troponin I 0.03 ng/ml (0.00-0.05) 09/22/19 10:15 Current Medications Generic Name Dose Route Start Last Admin Trade Name Freq PRN Reason Stop Dose Admin Acetaminophen 650 mg 09/27/19 15:52 Tylenol - PO Q6H PRN Pain or fever Amlodipine Besylate 10 mg 09/23/19 17:14 09/30/19 10:12 Norvasc - PO 10 mg DAILY MIKAYLA Administration Heparin Sodium (Porcine) 5,000 unit 09/23/19 22:00 09/30/19 06:46 Heparin - SQ 5,000 unit TID MIKAYLA Administration Ertapenem 1 gm/ Sodium 50 mls @ 100 mls/hr 09/29/19 12:15 09/30/19 10:20 Chloride IVPB 100 mls/hr DAILY MIKAYLA Administration Insulin Aspart 1 vial 09/27/19 16:30 09/30/19 06:47 Novolog Vial Sliding Scale - SQ Not Given ACHS [facility] Protocol Home Medications Medication Instructions Recorded Losartan Potassium 100 mg PO DAILY 09/23/19 Microbiology 09/22/19 10:30 Blood - Peripheral Venous Blood Culture - Final NO GROWTH AFTER 5 DAYS INCUBATION 09/22/19 10:15 Blood - Peripheral Venous Blood Culture - Final NO GROWTH AFTER 5 DAYS INCUBATION 09/22/19 13:30 Stool Salmonella/Shigella Culture - Final NO GROWTH OF SALMONELLA OR SHIGELLA SPECIES OBTAINED 09/22/19 13:30 Stool Campylobacter Culture - Final NO GROWTH OF CAMPYLOBACTER SPECIES OBTAINED 09/22/19 13:30 Stool Yersinia Culture - Final NO GROWTH OF YERSINIA SPECIES OBTAINED 09/22/19 13:30 Stool Vibrio Culture - Final NO GROWTH OF VIBRIO SPECIES OBTAINED 09/22/19 13:30 Stool Escherichia coli 0157 Culture - Final NO GROWTH OF E COLI 0157 OBTAINED 09/22/19 09:50 Urine - Urine Clean Catch Urine Culture - Final NO GROWTH OBTAINED ASSESSMENT AND PLAN: Patient is a 64yom with PMhx of HTN, HLP, DM, who presented with diarrhea x 1 week and abdominal pain x 2 days , and was found to have perforated appendicitis. # s/p sepsis due to Acute appendicitis with early perforation and abscess formation. discussed with the patient in details. CRP is 8.24, continue IV abx as per ID changed to Ertapenem as an outpatient, f/u crp level and labs as an outpatient .daily infusions ARE ORDERED BY id, further management per ID and the surgeon As per IR. the collection is not drainable at this point. pICC LINE IN PLACE patient will follow up with AN OUTPATIENT , HAS AN APPOINTMENT ON Wednesday 10/10, f/u with surgery , CT of abdomen and pelvis with oral contrast for follow up CT as per surgeon if still on antibiotics or symptoms recurrent, would get CT then with PO (no IV ) contrast will need colonoscopy 6-8 weeks after resolution of this illness, then can pursue interval appendectomy with surgeon of his choice # MELANIE: improved Cr. repeat labs in a week period # H/o HTN: BP stable # H/o DM : continue home meds, repeat cmp in a week if elevated cr then needs to switch to another agent patient will come to the infusion center on a daily basis
[2019-09-30 14:45] VITALS: BP 126/69; PULSE 70; TEMP 97.7
== END 2019-09-30 14:59 | disposition home or self-care (01) | DRG 372 ==
LOC: FER 09:17 → J4W 21:40
PROVIDERS: ADMIT Internal Medicine; ATTEND Internal Medicine
PROC: 02HV33Z Insertion of Infusion Device into Superior Vena Cava, Percutaneous Approach (ICD-10-PCS; principal; 2019-09-30)
PROC: B518ZZA Fluoroscopy of Superior Vena Cava, Guidance (ICD-10-PCS; 2019-09-30)
DX: K35.32 Acute appendicitis with perforation, localized peritonitis, and gangrene, without abscess (principal); N17.9 Acute kidney failure, unspecified; E87.2 Acidosis; E87.1 Hypo-osmolality and hyponatremia; E11.9 Type 2 diabetes mellitus without complications; E78.00 Pure hypercholesterolemia, unspecified; F17.210 Nicotine dependence, cigarettes, uncomplicated; R00.0 Tachycardia, unspecified; R10.31 Right lower quadrant pain; E86.0 Dehydration; E87.6 Hypokalemia; I12.9 Hypertensive chronic kidney disease with stage 1 through stage 4 chronic kidney disease, or unspecified chronic kidney disease; E11.22 Type 2 diabetes mellitus with diabetic chronic kidney disease; N18.2 Chronic kidney disease, stage 2 (mild); E66.9 Obesity, unspecified; Z68.26 Body mass index [BMI] 26.0-26.9, adult
CPT/HCPCS: 36415; 36558; 36600; 71045-TC-FY; 74176-TC; 77001-TC-FY; 80048; 80053; 81003; 81015; 82040; 82607; 82728; 82746; 82803; 82962; 83540; 83550; 83605; 83735; 84100; 84484; 85025; 85027; 85044; 85610; 85730; 86140; 86850; 86900; 86901; 87040; 87045; 87046; 87086; 87804; 93005; 99285-25; C1751; J0131; J1644; J3480; J7030; Q9967

== ENCOUNTER 2019-10-01 08:11 | Day surgery (SDC) | payer BC ==
[2019-10-01] MEDS ORDERED: ERTAPENEM SODIUM 1 GM in SODIUM CHLORIDE 50 ML IVPB ONE (09:00)
[2019-10-01] MEDS ORDERED: ERTAPENEM SODIUM 1 GM in SODIUM CHLORIDE 100 ML IVPB ONE (09:00)
[2019-10-01 09:44] VITALS: BP 106/71; PULSE 74; TEMP 98.1
== END 2019-10-01 09:45 | disposition home or self-care (01) ==
LOC: JINFUSION 08:11 → J7W 08:12 → JINFUSION 09:45
PROVIDERS: ATTEND Internal Medicine
DX: K35.32 Acute appendicitis with perforation, localized peritonitis, and gangrene, without abscess (principal)
CPT/HCPCS: 96365

== ENCOUNTER 2019-10-02 07:50 | Day surgery (SDC) | payer BC ==
[2019-10-02] MEDS ORDERED: ERTAPENEM SODIUM 1 GM in SODIUM CHLORIDE 50 ML IVPB ONE (09:00)
[2019-10-02 14:43] VITALS: TEMP 98.7
[2019-10-02 14:44] VITALS: BP 120/67; PULSE 70
== END 2019-10-02 14:38 | disposition home or self-care (01) ==
LOC: JINFUSION 07:50 → J7W 07:50 → JINFUSION 14:38
PROVIDERS: ATTEND Internal Medicine
DX: K35.32 Acute appendicitis with perforation, localized peritonitis, and gangrene, without abscess (principal)
CPT/HCPCS: 96365

== ENCOUNTER 2019-10-03 07:26 | Day surgery (SDC) | payer BC ==
[2019-10-03] MEDS ORDERED: SODIUM CHLORIDE 100 ML IVPB ONE (07:45)
[2019-10-03] MEDS ORDERED: ERTAPENEM SODIUM 1 GM VIAL ONE (07:45)
[2019-10-03] MEDS ORDERED: ERTAPENEM SODIUM 1 GM in SODIUM CHLORIDE 50 ML IVPB ONE (08:00)
[2019-10-03 08:04] VITALS: TEMP 98.1
[2019-10-03 08:36] VITALS: BP 132/67; PULSE 82
[2019-10-03 08:52] LABS: HEMATOCRIT 31.2 % (35.4-49); HEMOGLOBIN 10.3 GM/dL (11.7-16.9); MCH 30.3 pg (25.7-33.7); MEAN CELL VOLUME 91.8 fl (80-96); MEAN PLT VOLUME 9.3 fl (7.5-11.1); PLATELET COUNT 498 K/MM3 (134-434); RBC 3.39 M/mm3 (4.00-5.60); WHITE BLOOD COUNT 7.3 K/mm3 (4.0-10.0)
[2019-10-03 09:20] LABS: BLOOD UREA NITROGEN 12.5 mg/dL (7-18); CALCIUM 10.5 mg/dL (8.5-10.1); CREATININE 1.7 mg/dL (0.55-1.3); POTASSIUM 4.7 mmol/L (3.5-5.1)
== END 2019-10-03 08:52 | disposition home or self-care (01) ==
LOC: JINFUSION 07:26
PROVIDERS: ATTEND Internal Medicine
DX: K35.32 Acute appendicitis with perforation, localized peritonitis, and gangrene, without abscess (principal)
CPT/HCPCS: 36415; 80048; 85027; 86140; 96365

== ENCOUNTER 2019-10-04 07:20 | Day surgery (SDC) | payer BC ==
[2019-10-04] MEDS ORDERED: ERTAPENEM SODIUM 1 GM in SODIUM CHLORIDE 50 ML IVPB ONE (09:00)
[2019-10-04 10:23] VITALS: BP 124/70; PULSE 69; TEMP 97.9
== END 2019-10-04 10:00 | disposition home or self-care (01) ==
LOC: J7W 07:20 → JINFUSION 07:20
PROVIDERS: ATTEND Internal Medicine
DX: K35.32 Acute appendicitis with perforation, localized peritonitis, and gangrene, without abscess (principal)
CPT/HCPCS: 96365

== ENCOUNTER 2019-10-05 08:25 | Day surgery (SDC) | payer BC ==
[2019-10-05] MEDS ORDERED: ERTAPENEM SODIUM 1 GM in SODIUM CHLORIDE 50 ML IVPB ONE (08:45)
[2019-10-05 09:59] VITALS: PULSE 70; TEMP 98.7
[2019-10-05 10:25] VITALS: BP 112/61
== END 2019-10-05 10:00 | disposition home or self-care (01) ==
LOC: JINFUSION 08:25 → J7W 08:28 → JINFUSION 10:00
PROVIDERS: ATTEND Internal Medicine
DX: K35.32 Acute appendicitis with perforation, localized peritonitis, and gangrene, without abscess (principal)
CPT/HCPCS: 96365

== ENCOUNTER 2019-10-06 08:38 | Day surgery (SDC) | payer BC ==
[2019-10-06] MEDS ORDERED: ERTAPENEM SODIUM 1 GM in SODIUM CHLORIDE 50 ML IVPB ONE (09:00)
[2019-10-06] MEDS ORDERED: ERTAPENEM SODIUM 1 GM VIAL ONE (09:03)
[2019-10-06 09:15] LABS: HEMOGLOBIN 10.2 GM/dL (11.7-16.9); MCH 30.3 pg (25.7-33.7); MCHC 33.1 g/dl (32.0-35.9); MEAN CELL VOLUME 91.7 fl (80-96); MEAN PLT VOLUME 8.9 fl (7.5-11.1); PLATELET COUNT 503 K/MM3 (134-434); RBC 3.38 M/mm3 (4.00-5.60); RDW 13.9 % (11.9-15.9); WHITE BLOOD COUNT 9.1 K/mm3 (4.0-10.0)
[2019-10-06 09:52] LABS: BLOOD UREA NITROGEN 15.1 mg/dL (7-18); CREATININE 1.8 mg/dL (0.55-1.3); POTASSIUM 4.4 mmol/L (3.5-5.1)
[2019-10-06 10:05] VITALS: BP 116/64; PULSE 77; TEMP 97.9
== END 2019-10-06 09:58 | disposition home or self-care (01) ==
LOC: JINFUSION 08:38
PROVIDERS: ATTEND Internal Medicine
DX: K35.32 Acute appendicitis with perforation, localized peritonitis, and gangrene, without abscess (principal)
CPT/HCPCS: 36415; 80048; 85027; 86140; 96365

== ENCOUNTER 2019-10-07 08:33 | Day surgery (SDC) | payer BC ==
[2019-10-07] MEDS ORDERED: ERTAPENEM SODIUM 1 GM in SODIUM CHLORIDE 50 ML IVPB ONE (09:00)
[2019-10-07 09:08] VITALS: TEMP 98
[2019-10-07 11:03] VITALS: BP 108/54; PULSE 70
== END 2019-10-07 10:10 | disposition home or self-care (01) ==
LOC: JINFUSION 08:33 → J7W 08:34 → JINFUSION 08:34 → JSAMEDAYSX 08:35 → J7W 08:35 → JINFUSION 10:10
PROVIDERS: ATTEND Internal Medicine
DX: K35.32 Acute appendicitis with perforation, localized peritonitis, and gangrene, without abscess (principal)
CPT/HCPCS: 96365

== ENCOUNTER 2019-10-08 08:10 | Day surgery (SDC) | payer BC ==
[2019-10-08] MEDS ORDERED: ERTAPENEM SODIUM 1 GM in SODIUM CHLORIDE 50 ML IVPB ONE (08:45)
[2019-10-08 09:38] VITALS: BP 127/69; PULSE 64; TEMP 98.9
== END 2019-10-08 10:15 | disposition home or self-care (01) ==
LOC: J7W 08:10 → JINFUSION 08:10
PROVIDERS: ATTEND Internal Medicine
DX: K35.32 Acute appendicitis with perforation, localized peritonitis, and gangrene, without abscess (principal)
CPT/HCPCS: 96365; 96367

== ENCOUNTER 2019-10-09 07:51 | Day surgery (SDC) | payer BC ==
[2019-10-09] MEDS ORDERED: ERTAPENEM SODIUM 1 GM in SODIUM CHLORIDE 50 ML IVPB ONE (08:45)
[2019-10-09 09:29] VITALS: TEMP 97.9
[2019-10-09 10:54] VITALS: BP 112/58; PULSE 66
== END 2019-10-09 09:50 | disposition home or self-care (01) ==
LOC: JINFUSION 07:51 → J7W 07:51 → JINFUSION 09:50
PROVIDERS: ATTEND Internal Medicine
DX: K35.32 Acute appendicitis with perforation, localized peritonitis, and gangrene, without abscess (principal)
CPT/HCPCS: 96365

== ENCOUNTER 2019-10-10 08:46 | Day surgery (SDC) | payer BC ==
[2019-10-10] MEDS ORDERED: ERTAPENEM SODIUM 1 GM in SODIUM CHLORIDE 50 ML IVPB ONE (09:00)
[2019-10-10 09:22] VITALS: TEMP 97.8
[2019-10-10 09:32] LABS: BASO % 4.9 % (0-2.0); EOS % 8.5 % (0-4.5); HEMATOCRIT 32.5 % (35.4-49); HEMOGLOBIN 10.5 GM/dL (11.7-16.9); MCH 30.1 pg (25.7-33.7); MCHC 32.5 g/dl (32.0-35.9); MEAN CELL VOLUME 92.9 fl (80-96); MEAN PLT VOLUME 8.8 fl (7.5-11.1); MONO % 7.3 % (3.8-10.2); NEUT % 50.3 % (42.8-82.8); PLATELET COUNT 510 K/MM3 (134-434); RDW 13.7 % (11.9-15.9); WHITE BLOOD COUNT 9.5 K/mm3 (4.0-10.0)
[2019-10-10 09:59] LABS: BLOOD UREA NITROGEN 20.1 mg/dL (7-18); CALCIUM 10.4 mg/dL (8.5-10.1); CREATININE 1.8 mg/dL (0.55-1.3); POTASSIUM 4.5 mmol/L (3.5-5.1)
[2019-10-10 12:40] VITALS: BP 124/72; PULSE 75
== END 2019-10-10 10:20 | disposition home or self-care (01) ==
LOC: JINFUSION 08:46
PROVIDERS: ATTEND Internal Medicine
DX: K35.32 Acute appendicitis with perforation, localized peritonitis, and gangrene, without abscess (principal)
CPT/HCPCS: 36415; 80048; 85025; 86140; 96365

== ENCOUNTER → 2019-10-14 | Day surgery (SDC) | payer BC | END | disposition home or self-care (01) | LOC: JRADIR 08:57 | PROVIDERS: ATTEND Specialist | PROC: 05PY03Z Removal of Infusion Device from Upper Vein, Open Approach (ICD-10-PCS; principal; 2019-10-14) | DX: Z45.2 Encounter for adjustment and management of vascular access device (principal) | CPT/HCPCS: 36589 ==

== ENCOUNTER 2021-11-16 05:13 | Emergency (ER) | payer BC ==
[2021-11-16 05:34] VITALS: BP 167/94; PULSE 100; TEMP 98.4; BMI 26.6
[2021-11-16] MEDS ORDERED: DIPHTH,PERTUSS(ACELL),TET 0.5 ML DISP.SYRIN IM ONE ×2 (06:00→06:22)
== END 2021-11-16 06:39 | disposition home or self-care (01) ==
LOC: JER 05:13
PROC: 3E0234Z Introduction of Serum, Toxoid and Vaccine into Muscle, Percutaneous Approach (ICD-10-PCS; principal; 2021-11-16)
DX: S80.212A Abrasion, left knee, initial encounter (principal); W00.0XXA Fall on same level due to ice and snow, initial encounter
CPT/HCPCS: 73560-TC-LT-FY; 90715; 99284-25